=== PATIENT | female | born 2000 ===

== ENCOUNTER 2024-07-23 18:02 | Outpatient (REF) | payer OTHER, SELFPAY ==
[2024-07-23 18:20] LABS: MANUAL DIFF FLAG NO
[2024-07-23 18:33] LABS: Basophils Percent Auto 0.3 % (0-2); Eosinophils Absolute Auto 0.4 X10*3/uL (0.0-0.4); Eosinophils Percent Auto 4.1 % (0-4); Hematocrit 43.2 % (37.0-47.0); Hemoglobin 14.4 g/dl (12.0-16.0); Imm Gran Abs Auto 0.03 X10*3/uL (0.00-0.03); Imm Gran Pct Auto 0.3 % (0.0-0.4); Lymphocytes Absolute Auto 2.3 X10*3/uL (1.2-4.9); Lymphocytes Percent Auto 26.5 % (20-40); Mean Corpuscular HGB Conc 33.3 g/dl (31.0-35.0); Mean Corpuscular Hemoglobin 28.3 pg (27.0-33.0); Mean Platelet Volume 10.8 fL (9.4-12.3); Monocytes Absolute Auto 0.7 X10*3/uL (0.1-1.2); Monocytes Percent Auto 7.9 % (2-11); Neutrophils Absolute Auto 5.3 x10*3/uL (2.0-8.3); Neutrophils Percent Auto 60.9 % (45-73); Platelet Count 397 X10*3/uL (160-400); Red Blood Count 5.08 X10*6/uL (4.20-5.50); Red Cell Distribution Width 20.4 % (11.0-16.0); White Blood Count 8.8 X10*3/uL (4.8-10.8)
[2024-07-23 19:02] LABS: Alanine Aminotransferase 41 U/L (0-31); Albumin Level 3.9 g/dL (3.5-5.0); Alkaline Phosphatase 40 U/L (39-117); Anion Gap 12 (12-20); Aspartate Amino Transferase 33 U/L (5-31); Bilirubin Total 0.3 mg/dL (0.0-1.0); Blood Urea Nitrogen 6 mg/dL (9-16); Calcium 10.5 mg/dL (8.4-10.2); Carbon Dioxide 20 mmol/L (22-29); Chloride 111 mmol/L (96-108); Estimated Glomerular Filt Rate > 60; Glucose Random 107 mg/dL (60-115); Magnesium 2.3 mg/dL (1.6-2.6); Phosphorus 2.6 mg/dL (2.7-4.5); Potassium 4.7 mmol/L (3.3-5.1); Sodium 138 mmol/L (135-145); Total Protein 7.4 g/dL (6.5-8.0); Triglycerides 183 mg/dL (<150)
--- OUTSIDE RECORDS SUMMARY | 2024-07-23 19:24 | XMS_ITS | Clinical Summary ---
Author Organization [facility] ity Address [address] [place] [address] Care Team Providers Care Electronic Intelligence Officer Name Role Phone Luci Parra Primary Care Provider [phone] Surgical History Surgery Date Site/Laterality Comments SHOULDER SURGERY N/A PROCEDURE: HISTORICAL SHOULDER SURGERY Social History Tobacco Use Types Packs/Day Years Used Date Smoking Tobacco: Never Smokeless Tobacco: Never Alcohol Use Standard Drinks/Week Comments Yes 0 (1 standard drink = 0.6 oz pur e alcohol) Comments Unknown Sex and Gender Information Value Date Recorded Sex Assigned at Not on file Legal Sex Female 8:38 PM EST Gender Identity Not on file Sexual Orientation Not on file Obstetrics History Last Filed Vital Signs Vital Sign Reading Time Taken Comments Blood Pressure 115/80 03/08/2024 7:15 AM EDT Sit ting L Arm Pulse 90 02/09/2023 10:12 AM EDT Temperature - - Respiratory Rate - - Oxygen Saturation - - Inhaled Oxygen Concentration - - Weight 55.8 kg (123 lb) 03/08/2024 7:15 AM EDT Height 160 cm (5' 3 ) 03/08/2024 7:15 AM EDT Body Mass Index 21.79 03/08/2024 7:15 AM EDT Plan of Treatment Health Maintenance Due Date Last Done Comments HPV Vaccines (1 - 3-dose series) 2013 DTaP,Tdap,and Td Vaccines (1 - Tdap) 2017 Hepatitis B Vaccines (1 of 3 - 19+ 3-dose series) 2017 Cervical Cancer Screening: P ap Smear 08/30/2019 Depression Screening 06/17/2023 HIV Screening 06/17/2023 Hepatitis C Screening 06/17/2023 Social Influencers of Health Screening 06/17/2023 COVID-19 Vaccine (1 - 2023-2 5 season) 2024 Influenza Vaccine (#1) 2024 HIB Vaccines Aged Out No longer eligi ble based on patient's age to complete this topic Hepatitis A Vaccines Aged Out No long er eligible based on patient's age to complete this topic IPV Vaccines Aged Out No longer eligi ble based on patient's age to complete this topic MMR Vaccines Aged Out No longer eligi ble based on patient's age to complete this topic Meningococcal ACWY Vaccine Aged Out N o longer eligible based on patient's age to complete this topic Meningococcal B Vacine Aged Out No lo nger eligible based on patient's age to complete this topic Pneumococcal Vaccine: Pediat rics (0 to 5 Years) and At-Risk Patients (6 to 64 Years) Aged Out No longer eligible b ased on patient's age to complete this topic RSV Immunization Patients Un sharonda 20 months Aged Out No longer eligible b ased on patient's age to complete this topic Varicella Vaccines Aged Out No longer eligible based on patient's age to complete this topic Care Teams Electronic Intelligence Officer Relationship Specialty Start Date End Date Luci Parra [address] [place], [place] [address]AGUSTÍN gonzalez [phone] PCP - General 02/09/23
--- OUTSIDE RECORDS SUMMARY | 2024-07-23 19:24 | XMS_ITS ---
Author Organization [facility], [facility] Address [address], [place] [id number] Care Team Providers Care Craft Artist Name Role Phone ARI SHOOK Primary Care Provider Luci Parra [phone] REASON FOR VISIT FU SOCIAL HISTORY Sex Assigned At : Social History Observation Description Sex Assigned At Female Encounters Encounter Location Date Provider Diagnosis [facility], [address] [id number] 06/28/2024 Luci Parra PLAN OF TREATMENT No Information Progress Notes * CIPRIANO RASCONOB:2000 (23 yo F)Acc No.[id number]:06/28/2024 Progress Notes Patient:??DESIRAE RASCON Provider:??Luci Parra DNP :2000?Age:23 Y?Sex:Fe male Date:06/28/2024 Phone: Address: [address] [id number] Pcp:ARI SHOOK Subjective: * Chief Complaints: * ?1. FU. * Medical History:?? Objective: Assessment: Plan: * Treatment: * Billing Information: * Visit Code:?? * Procedure Codes:?? * Sign off status: Pending * Provider:??Luci Parra DNP Date:??10/2024
--- OUTSIDE RECORDS SUMMARY | 2024-07-23 19:24 | XMS_ITS | Data Portability ---
Author Organization [place] - [facility] Address [address] [facility] [address] Assessment No assessment recorded. Plan of Treatment Reminders Order Date Submit Date Provider Last Modified By Organization Details Last Modified Time Details Appointments None recorded. Lab erythrocyte sedimentati on rate by westergren method 2023 024 [employer] [facility], [address], [place], [place], [address], 4 17:30:49 C-reactive protein, quantitativ e, serum or plasma 2023 024 [email or web address] [facility], [address], [place], [place], [address], 4 09:45:29 CMP, serum or plasma 2023 024 [employer] [facility], [address], [place], [place], [address], 4 17:30:49 CBC w/ auto diff 2023 024 [employer] [facility], [address], [place], [place], [address], 4 17:30:49 JALEN (antinuclea r antibodies) screen, ifa, serum 2023 024 [employer] [facility], [address], [place], [place], [address], 4 17:30:49 HLA-B27 related Ag 2023 024 [employer] [facility], [address], [place], [place], [address], 4 17:30:49 rf (rheumatoid factor), serum 2023 024 [email or web address] [facility], [address], [place], [place], [address], 4 09:45:29 ccp (cyclic citrullinat ed peptide) igg, serum 2023 024 AROLDO [facility], [address], [place], [place], [address], 4 17:30:49 Referral None recorded. Procedures None recorded. Surgeries None recorded. Imaging XR, pelvis, 3 or more view - Hx HLA B27 arthritisax ial stiffness and pain 2023 024 [facility] (Central Scheduling), [address] [facility] [place], [address], 4 18:24:51 XR, cervical spine, 2 or 3 view - Hx HLA B27 arthritisax ial stiffness and pain 2023 024 [facility] (Central Scheduling), [address] , [place], [place], [address], 4 18:23:20 XR, lumbosacral spine, 2 or 3 view 2023 024 [facility] (Central Scheduling), [address] , [place], [place], [address], 4 18:23:50 Medication Orders None recorded. Patient TargetsNo targets recorded. Patient InstructionsNo instructions recorded. Reason for Referral None Reported. Results Created Date Observation Date Name Description Value Unit Range Abnormal Flag Note LastModifiedBy Organization Detail LastModifiedTime 10/28/19 24 10/28/2023 XR, cervi vandana spine , 2 or 3 view [facility] [address] [place] [address] XRay Report Signed Patien t: Sravan Mendez MR#: [id number] : 2000 Acct:H [id number] Age/Se x: 23 / F ADM Date: Loc: HE.RAD Attend ing Dr: Eli parra MD Orderi ng Physic gagan: Eli parra MD Date of Servic e: Proced ure(s) : XR cervic al spine 3V Access ion Number (s): [id number] H cc: NO,PCC EXAM: XR cervic al spine 3V CLINIC AL INDICA TION: HX HLA B27 ARTHRI TIS, STIFFN ESS AND PAIN COMPAR UZIEL: None FINDIN GS: Verteb ral body height s mainta ined. Focal revers al of usual cervic al lordos is center ed at C4-C5. Interv ertebr al disc spaces preser tiff with except ion of C7-T1. No sublux ation. Normal atlant odenta l interv al. Odonto id proces s appear s intact . No cervic al facet arthro audelia. Prever tebral soft tissue s appear normal . Electr onical ly Signed in [place] cribe By ROGELIO Barajas MD, MD 081 XR/XR cervic al spine 3V IMPRES HIMA: Straig htenin g/reve rsal of usual cervic al lordos is, may be due to muscle spasm. No cervic al arthro audelia or syndes mophyt es identi fied at this time. Dictat ed By: Rogelio barajas MD Signed By: 1818 DD/DT: 1245 TD/TT: 1250 Transc riptio nist: [email or web address] [facility] [address] [place], [place] [address], [address], 12/02/2023 09:48:27 10/28/19 24 10/28/2023 XR, cervi vandana spine , 2 or 3 view No observ ation record ed. [address] [place], [address], 12/02/2023 09:48:27 10/28/19 24 10/28/2023 XR, lumbo sacra l spine , 2 or 3 view [facility] [address] [facility] [place] [address] XRay Report Signed Yola t: Sravan Mendez MR#: [id number] : 2000 Acct:H [id number] Age/Se x: 23 / F ADM Date: Loc: HE.RAD Attend ing Dr: Eli parra MD Orderi ng Physic gagan: Eli parra MD Date of Servic e: Proced ure(s) : XR lumbar spine 2-3V Access ion Number (s): [id number] H cc: NO,PCC EXAM: XR lumbar spine 2-3V CLINIC AL INDICA TION: HX HLA B27 ARTHRI TIS, STIFFN ESS AND PAIN COMPAR UZIEL: None FINDIN GS: Verteb ral body height s mainta ined. Interv ertebr al disc spaces relati vely well mainta ined. Preser vation of usual cervic al lordos is. No suspic ious osseou s lesion . No syndes mophyt es. Sacroi liac joints appear intact . Soft tissue s appear normal . Electr onical ly Signed in [place] cribe By ROGELIO Barajas MD, MD 082 XR/XR lumbar spine 2-3V IMPRES HIMA: Normal lumbar spine radiog raph. Dictat ed By: Rogelio barajas MD Signed By: 1818 DD/DT: 1245 TD/TT: 1250 Transc riptio nist: [email or web address] [facility] [address] [place] [address] [place], [address], 12/02/2023 09:48:28 10/28/19 24 10/28/2023 XR, lumbo sacra l spine , 2 or 3 view No observ ation record ed. [address] [place], [address], 12/02/2023 09:48:29 10/28/19 24 10/28/2023 XR, pelvi s, 3 or more view [facility] [address] [facility] [place] [address] XRay Report Signed Yola t: Sravan Mendez MR#: [id number] : 2000 Acct:H [id number] Age/Se x: 23 / F ADM Date: Loc: HE.RAD Attend ing Dr: Eli parra MD Orderi ng Physic gagan: Eli parra MD Date of Servic e: Proced ure(s) : XR pelvis min 3V Access ion Number (s): [id number] H cc: NO,PCC EXAM: XR pelvis min 3V CLINIC AL INDICA TION: HX HLA B27 ARTHRI TIS, STIFFN ESS AND PAIN COMPAR UZIEL: None FINDIN GS: Pelvis intact . No suspic ious osseou s lesion . Normal bone minera lizati on. Sacroi liac joints appear intact . No apprec iable erosio ns. No osseou s fusion . Hip joint spaces well mainta ined. Femora l head articu lar surfac es well mainta ined. Soft tissue s appear normal . Electr onical ly Signed in [place] c[place] By ROGELIO Barajas MD, MD 080 XR/XR pelvis min 3V IMPRES HIMA: Normal pelvic radiog raph. No sacroi liitis . Dictat ed By: Rogelio barajas MD Signed By: 1819 DD/DT: 1245 TD/TT: 1250 Transc riptio nist: [email or web address] [facility] [address] [facility], [place], [address], 12/02/2023 09:48:29 10/28/19 24 10/28/2023 XR, pelvi s, 3 or more view No observ ation record ed. [address] [place], [address], 12/02/2023 09:48:30 Result Notes None recorded. Procedures Surgical History Date Name Laterality Status Provider Name and Address Organization Details Recorded Time established patient counseling (25-39 minutes) completed Eli Fall MD [address] [place] [address], [address], [facility] 12/06/2023 13:57:12 Imaging Results Imaging Date Name Status LastModified by Organiz ation Details LastModified Time 10/28/2023 XR, cervical spine, 2 or 3 view completed [address], [address], 12/02/2023 09:48:27 10/28/2023 XR, cervical spine, 2 or 3 view completed [address], [address], 12/02/2023 09:48:27 10/28/2023 XR, lumbosacral spine, 2 or 3 view completed [address], [address], 12/02/2023 09:48:28 10/28/2023 XR, lumbosacral spine, 2 or 3 view completed [address], [address], 12/02/2023 09:48:29 10/28/2023 XR, pelvis, 3 or more view completed [address], [address], 12/02/2023 09:48:29 10/28/2023 XR, pelvis, 3 or more view completed [address], [address], 12/02/2023 09:48:30 Procedure Notes None recorded. Medical Equipment None Reported. Allergies Allergen ID Allergen Name Allergen Category Reaction Reaction Severity Criticality Documentation Date Start Date Code Code System Note Provider Name and Address Organization Details Recorded Time 654981 amoxicill in medicatio n hives Not available Not available 10/28/2023 723 RxNorm [place] [facility] 4 11:02:36 378352 oxcarbaze pine medicatio n hives rash Not available Not available Not available 10/28/2023 33109 RxNorm Adiel frederick [facility] 4 11:03:50 997521 Venofer medicatio n swelling Not available Not available 10/28/2023 80294 9 RxNorm swell ing all over and unabl e walk Adiel frederick [facility] 4 11:04:55 Medications Name Sig Start Date Stop Date Status Note LastModified by Organization Details LastModified Time Apri 0.15 mg-0.03 mg tablet TAKE 1 TABLET BY MOUTH EVERY DAY 10/27 completed Not Available Not Available Not Available prednison e 20 mg tablet TAKE 2 TABLETS BY MOUTH EVERY DAY 10/27 completed Not Available Not Available Not Available gabapenti n 400 mg capsule TAKE 1 CAPSULE BY MOUTH THREE TIMES A DAY active Not Available Not Available No t Available clonazepa m 1 mg tablet TAKE 1 TABLET BY MOUTH TWICE A DAY FOR 4 DAYS 10/27 completed Not Available Not Available Not Available methylphe nidate ER 54 mg tablet,ex tended release 24 hr TAKE 1 TABLET BY MOUTH EVERY DAY IN THE MORNING active Not Available Not Available No t Available lithium carbonate 150 mg capsule TAKE 2 CAPSULES BY MOUTH EVERY DAY AT BEDTIME 10/27 completed Not Available Not Available Not Available lithium carbonate 300 mg capsule TAKE 1 CAPSULE BY MOUTH AT BEDTIME FOR 7 DAYS 10/27 completed Not Available Not Available Not Available Phospha Neutral 250 mg tablet TAKE 1 TABLET BY MOUTH 3 TIMES DAILY FOR 2 DAYS active pt stated no longer taking - had allergic reaction 11/30/23 LB Not Available Not Available Not Available fluvoxami ne 50 mg tablet TAKE 1 TABLET BY MOUTH TWICE A DAY FOR 30 DAYS active Not Available Not Available No t Available lorazepam 1 mg tablet TAKE 1 TABLET BY MOUTH THREE TIMES A DAY NEEDED. *INS ENDED 10/20, NEED NEW active Not Available Not Available No t Available ondansetr on 4 mg disintegr ating tablet TAKE 1 TABLET BY MOUTH EVERY 8 HOURS NEEDED FOR NAUSEA/V OMITING active Not Available Not Available No t Available methylphe nidate ER 36 mg tablet,ex tended release 24 hr TAKE 1 TABLET BY MOUTH EVERY DAY IN THE MORNING 10/27 completed Not Available Not Available Not Available metoclopr amide 10 mg tablet TAKE 1 TABLET BY MOUTH BEFORE MEALS TWICE A DAY 30 DAYS active Not Available Not Available No t Available methylphe nidate ER 27 mg tablet,ex tended release 24 hr TAKE 1 TABLET BY MOUTH EVERY DAY IN THE MORNING 10/27 completed Not Available Not Available Not Available divalproe x ER 250 mg tablet,ex tended release 24 hr TAKE 2 TABLETS BY MOUTH EVERY DAY 10/27 completed Not Available Not Available Not Available bupropion HCl XL 300 mg 24 hr tablet, extended release TAKE 1 TABLET BY MOUTH EVERY DAY active Not Available Not Available No t Available bupropion HCl XL 150 mg 24 hr tablet, extended release TAKE 1 TABLET BY MOUTH EVERY DAY IN THE MORNING 10/27 completed Not Available Not Available Not Available .5 (28) 1.5 mg-30 mcg (21)/75 mg (7) tablet TAKE 1 TABLET BY MOUTH EVERY DAY active Not Available Not Available No t Available eszopiclo ne 2 mg tablet TAKE 1 TABLET IMMEDIAT FAUZIA BEFORE BEDTIME ONCE A DAY FOR 30 DAYS 10/27 completed Not Available Not Available Not Available ramelteon 8 mg tablet TAKE 1 TABLET BY MOUTH AT BEDTIME NEEDED active pt stated no longer taking 11/30/23 LB Not Available Not Available Not Available lurasidon e 40 mg tablet TAKE 1 TABLET BY MOUTH EVERYDAY AT BEDTIME 10/27 completed Not Available Not Available Not Available lurasidon e 80 mg tablet TAKE 1 TABLET BY MOUTH EVERYDAY AT BEDTIME 10/27 completed Not Available Not Available Not Available lurasidon e 20 mg tablet TAKE 1 TABLET BY MOUTH EVERYDAY AT BEDTIME 10/27 completed Not Available Not Available Not Available lurasidon e 60 mg tablet TAKE 1 TABLET BY MOUTH EVERYDAY AT BEDTIME 10/27 completed Not Available Not Available Not Available Caplyta 42 mg capsule TAKE 1 CAPSULE BY MOUTH EVERY DAY 10/27 completed Not Available Not Available Not Available Vitals Date Recorded Body weight Heart rate Systolic blood pressure Diastolic blood pressure Provider Name and Address Organization Details Last Updated DateTime 10/28/2023 29304.87 g 93 /min 125 mm[Hg] 90 mm[Hg] Maren Yang [facility] 10/28/2023 11:06:48 Date Recorded Body weight Heart rate Systolic blood pressure Diastolic blood pressure Provider Name and Address Organization Details Last Updated DateTime 11/30/2023 85164.64 g 67 /min 121 mm[Hg] 84 mm[Hg] Demi Solorzano [place] [facility] 11/30/2023 11:29:15 Social History None recorded. Functional Status None recorded. Mental Status None recorded. Family History Nothing Reported. Medical History No medical history recorded. Gynecological HistoryNo gynecological history recorded. 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 Plan:Obtai n baseline serologies , inflammato ry markers and XraysTry temporary increase in Aleve -2 tabs BIDF/u 1 month Recurrent dislocation of shoulder region 76996592 M24.419 left shoulder x 3, requiring surgical repair. Experience s subsequent dislocatio nleft knee x 1. Has had surgery Plan:We did not have time to address in detail today- can review more at our follow up.Would recommend ortho referral- see if she can obtain any outside ortho notes ahead of timeConsid er genetics referral for a hypermobil e condition. [id number] MD Janeen Galeana Rheumatol [facility] [address] [place] [address] [place] [address] 11/30/2023 11:20:15 11/30/2023 12:42:40 Undifferentiated inflammatory arthritis 516238988 M13.80 23 year old female with a history of HLA B27 arthritis, diagnosed age [age].She reports axial stiffness and pain- mostly Cspine, hips and low back.She has no synovitis on examinatio n.She has no associated ocular, GI, dermatolog ic symptoms.X -rays of her pelvis, lumbar and cervical spines are unremarkab le for erosions, syndesmoph ytes or fusion. Hip joint spaces are normal.Her recent ESR and JALEN and CCP antibodies are negative. CRP and RF were ordered but results not received at time of this visit. HLA? B 27 is again positive. Kesha reports being diagnosed with a HLA- B27 arthritis at the age of 11 but was never treated with DMARDS - and yet her x-rays and ESR look good. At this time, I do not see evidence for an inflammato ry spondyloar thritis. Her B27 status may have no clinical significan ce. Plan:I reviewed my impression with Kesha. We reviewed her laboratory results and x-rays. I have offered reassuranc e. I will see if I can obtain the results of her RF and CRP. I will reach out to her when I obtain them, but I suspect they will be reassuring as well. She should continue with her stretches. She will refrain from NSAIDs for now (mild creatinine elevation) .We agreed to follow-up in 6 months, to re- evaluate. If she has had no change in symptoms at that time, I feel we can leave follow up as needed. Kesha agrees with the plan. ADDENDUM:l abs received:R F <10, CRP <3.0. Hypermobil ity of joint 079025459 R29.898 Kesha has had 3 failed left shoulder surgeries and history of repeated subluxatio ns to the left shoulder and left knee. We have discussed a referral to orthopedic s and genetics clinic.She is not inclined to pursue the orthopedic route as she expects further surgery will be recommende d and she has yet to understand why her surgeries fail.She would be interested in a genetics evaluation . I have given her a couple of genetics locations to pursue. If she needs a referral, I would be happy to place this for her. Health Concerns Section Related Observation LastModified by Organization Detai ls LastModified Time None Recorded Concern Status LastModified by Organization Details LastModified Time None Recorded Advance Directives Directive None Recorded Payers Encounter Date Sequence Insurance Name Policy Number Policy Palomo Covered Member ID Palomo Member ID Guarantor Name 10/28/2023 1 [facility] [id number] Kesha Mendez [id number] Kesha Mendez 11/30/2023 1 [employer] [facility] [id number] Kesha Mendez Notes Date Note Type Note Provider Name and Address Organization Details Recorded Time 10/28/2023 text/html Kesha is a 23-year-old female who presents for consultation from Ms. Luci Parra NP for polyarthralgia. She has a history of anemia, anxiety, ADHD, insomnia, concussion seventh grade (skull fracture), left shoulder surgery x 3, left knee surgery She states she has been seeing rheumatology since 5th grade:[facility], [facility].She was diagnosed with HLA-B27+ JENN- at the [facility]- tried Voltaren, nortriptyline, baclofen and alot of NSAIDsSuggested pain clinic-Also changed her diet- gluten free - helping- joints better. Has been gluten free for about 10 years. States she gets extremely sick if she eats gluten.Tells me she was told there was no point in testing as she is gluten free nowShe doesn't recall aishwarya on meds such as HCQ, MTX, SSZ, Enbrel , Humira States she had seen a analytics developer in - [facility], [place] -2017. Saw MD for maybe 4 visits- was given Baclofen. She states [facility]. Kesha states she lost contact with rheum while in college. Here to establish care. States she has had 3 shoulder surgeries while in college- 3 capsular shifts in her shoulder - she keeps tearing her labrum despite anchors. She can still dislocate the shoulderStates her mom is questioning something autoimmuneShe feels she hits some hypermobility marker,s but not all EDS markers left shoulder dislocates still on its ownShe reports left knee dislocation- s/p surgerystates she grew up dancing- very active 2 years now- worsening over past year:she awakens middle of night and cannot move head- sometime lasting 30-40 minutesfeels paralyzedsame experience in the [facility] stiffness: neck, low back, hips, knees- hours- better with moving aroundneck more of an issue over past two yearsstiffness everyday but sometimes only lasting 15-20 minutesfeels swelling in hip socketsback stiffens if sitting knees ,back and hips when younger- all started with her knees She sees a massage therapist and chiropractor- stopped chiroMarija takes Aleve- 1 tab a day as needed- tries not to take too much - doesn't notice a huge differenceHas tried topicals- no relief She mentions creatinine level elevation- noticed back in February 2023She mentions having an eating disorder- June 2023Her creatinine has worsened since she was recently at [facility] with heart palpitations, weak, LH- diagnosed with JAYSON, low phos, malnutrition, weight loss ROS:no inflammatory eye sx'sno psoriasisno PF/ AT4 years ago- reports intermittent pain with inspiration- can last 4-5 hours with radiating pain down arm- feels she can't breath deeply. Saw cardiology and no cardiac issueNo abd pain/ bloody diarrheano oral/ nasal soresHives -seasonally. No photosensitive rashesno unexplained feversFamhx: PGM RA. 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 She is a non smoker, social Etoh. Bachelor's and Master's in mental health- [employer] for both. 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 Kesha states that she did not increase her Aleve, as we discussed. This was out of concern for her kidneys. She is to see her residential coordinator tomorrow. She also informs me that in the next week or 2 she expects she will be admitted to a hospital for feeding tube placement. She tells me this could be [place] the [place].There have been no other interim issues since our visit 1 month prior. She denies any changes in her back, neck or hip symptoms.She stretches these areas when needed She reports a history of swelling and erythema to her knees and ankles - when she is in a hot shower or if the ambient temperature is very hot. She tells me her other doctors think possibly related to M[place]. Otherwise, she denies painfully swollen, stiff joints. As for her left shoulder and knee: She has failed 3 shoulder surgeries by 3 different [facility]- [facility]. She tells me she has torn through the anchors, repeatedly. Nobody has explained why.Her last surgery was in [facility]- 2019Her left knee has healed since surgery but she states it gets stuck and maybe subluxesShe has been through alot of PT with strengthening and stretching for both areas. Labs/ Studies:10/28 2023: Creatinine 1.17, GFR 66, AST 15, ALT 13, calcium 10.7, alk phos 28. WBC 5.3, Hgb 15.4, HCT 44.9, PLT 308K. ESR 2, JALEN IFA negative, CCP <16 (neg). HLA-B27 positive. 10/28/2023: Xrays:FINDINGS: Pelvis:Pelvis intact. No suspicious osseous lesion. Normal bone mineralization. Sacroiliac joints appearintact. No appreciable erosions. No osseous fusion.Hip joint spaces well maintained. Femoral head articular surfaces well maintained. Soft tissuesappear normal. FINDINGS: Lumbar spine:Vertebral body heights maintained. Intervertebral disc spaces relatively well maintained.Preservatio n of usual cervical lordosis. No suspiciousosseous lesion. No syndesmophytes. Sacroiliac joints appear intact. Soft tissues appear normal. FINDINGS: Cervical spine:Vertebral body heights maintained. Focal reversal of usual cervical lordosis centered at C4-C5.Intervertebral disc spaces preserved with exception ofC7-T1. No subluxation. Normal atlantodental interval. Odontoid process appears intact. No cervicalfacet arthropathy. Prevertebral soft tissues appearnormal. * I have reviewed all the x-rays and I concur with the reports. Eli Fall MD [address] [place] [address], [place], [address], [facility] 12/06/2023 13:57:38 OBGyn Episode No OBEpisode recorded.
--- OUTSIDE RECORDS SUMMARY | 2024-07-23 19:25 | XMS_ITS | Encounter Summary ---
Author Organization [facility] Address [address] [place] [id number] Care Team Providers Care Conference Assistant Name Role Phone Austin Goff MD Unavailable Luci Parra APRN Primary Care Provider [phone] Anthony Maldonado PA-C Unavailable [phone] Reason for Visit * Auth/Cert Specialty Diagnoses / Procedures Referred By Contac t Referred To Contact Diagnoses Nausea and vomiting, unspecified vomiting type Ongoing NV and currently has DHT Procedures IA INSERT CECOSTOMY/OTHER COLONIC TUBE PERCUTANEOUS IR Insert G/J Tube Incl Imaging Referral ID Status Reason Start Date Expiration Date Visits Re quested Visits Authorized [id number] 1 1 Encounter Details Date Type Department Care Team (Late st Contact Info) Description 07/03/2024 11:13 AM EST Anesthesia Event [facility] Radiology [address] [place] [id number] Joe Arce MD [address] [facility] [address] [place] [address] Anesthesia Record Procedure Summary Procedure Name Responsible Anesthesiologist Anesthesia Start Time Anesthesia Stop Time IR Insert G/J Tube Incl Imaging Joe Sutherland MD 07/03/24 1113 07/03/24 1230 Events Date Time Event Comment 07/03/2024 1006 1025 AN Equip Check 1113 An Start 1113 An Start Data 1122 An Induction 1126 An Intubation 1132 Anesthesia Ready 1217 AN Emergence 1221 An Extubation 1223 AN Stop Data 1224 AN Pt Transferred 1224 AM Pt Transferred 1230 Handoff to Receiving I compl eted my handoff to the receiving clinician during which we: 1. Identified the patient 2. Identified the responsible provider 3. Reviewed pertinent medical history 4. Discussed the surgical or procedural course 5. Reviewed intraoperative management and issues during anesthesia 6. Set expectations for the post-procedure period 7. Allowed opportunity for questions and acknowledgement of understanding. 1230 An Stop Meds Name Total fentaNYL 50 mcg/mL injection 100 mcg propofol 10 mg/mL BOLUS 180 mg rocuronium 10 mg/mL injection 70 mg lidocaine 2% (PF) injection (vial) 3 mL dexamethasone 4 mg/mL injection 4 mg ondansetron 2 mg/mL injection 4 mg sugammadex 200 mg/2 mL injection 200 mg ceFAZolin 1 g - INTRA-OP 2 g haloperidol 5 mg/mL injection 2.5 mg LR 300 mL * Agents Name O2 N2O Air Sevoflurane * Blood No blood administrations on file. Lines, Drains, and Airways Type Details Placement Removal NG/OG 05/05/24 (from OSH); 1106; nasogastric; left nostril; feeding administration, medication administration 05/05/24 1106 by Dayana Lama RN PICC Line - Double Lumen (Adult) 05/26/24; 1544; brachial, left, basilic vein (medial side of arm), left; pressure injectable catheter, other (see comments) ([id number]); 4 Fr, length (specify) (39/1); Purple; Red; modified seldinger technique; 0; distraction, intradermal injection (3 ml of lido); 1 05/26/24 1544 by Bety Ellington RN Enterostomy Tube (Adult) 07/03/24; 1213; percutaneous endoscopic gastrostomy-jejunostomy; LUQ; feeding; New G-J tube 07/03/24 1213 by Ashlie Belle RN Airway-Oral/CASINO ACCOUNTANT 07/03/24; 1137 (madhu smith via procedure documentation); endotracheal tube; 07/03/24; 1221 07/03/24 1137 by Joe Sutherland MD 07/03/24 1221 by Joe Sutherland MD documented in this encounter Social History Tobacco Use Types Packs/Day Years Used Date Smoking Tobacco: Never Smokeless Tobacco: Never Alcohol Use Standard Drinks/Week Comments Not Currently 0 (1 standard drink = 0.6 oz pur e alcohol) [facility] Utilities Answer Date Recorded In the past 12 months has th e electric, gas, oil, or water [employer] threatened to shut off services in your home? No 05/27/2024 AUDIT-C Answer Date Recorded Q1: How often do you have a drink containing alcohol? Never 05/24/2024 Q2: How many drinks containi ng alcohol do you have on a typical day when you are drinking? Patient does not drink Q3: How often do you have si x or more drinks on one occasion? Never 05/24/2024 Overall Financial Resource Strain (CARDIA) Answe r Date Recorded How hard is it for you to pa y for the very basics like food, housing, medical care, and heating? Not very hard 05/27/2024 Hunger Vital Sign Answer Date Recorded Within the past 12 months, y ou worried that your food would run out before you got the money to buy more. Never true 05/27/19 25 Within the past 12 months, t he food you bought just didn't last and you didn't have money to get more. Never true 05/27/2024 PRAPARE - Transportation Answer Date Re corded In the past 12 months, has l ack of transportation kept you from medical appointments or from getting medications? No 09/2024 In the past 12 months, has l ack of transportation kept you from meetings, work, or from getting things needed for daily living? No 05/27/2024 Housing Stability Vital Sign Answer David e Recorded In the last 12 months, was t here a time when you were not able to pay the mortgage or rent on time? No 05/27/2024 In the past 12 months, how m any times have you moved where you were living? 1 05/27/2024 At any time in the past 12 m [facility], were you homeless or living in a fci (including now)? No 05/27/2024 Sex and Gender Information Value Date Recorded Sex Assigned at Female 03/15/2024 6:18 PM EDT Gender Identity Female 03/15/2024 6:18 PM EDT Sexual Orientation Choose not to disclose 2023 6:18 PM EDT documented as of this encounter Last Filed Vital Signs Vital Sign Reading Time Taken Comments Blood Pressure - - Pulse - - Temperature - - Respiratory Rate 2 07/03/2024 12:23 PM EST Oxygen Saturation 96% 07/03/2024 12:23 PM EST Inhaled Oxygen Concentration - - Weight - - Height - - Body Mass Index - - documented in this encounter OR Notes * Anesthesia Postprocedure Evaluation - Joe Sutherland MD - 07/04/2024 8:05 AM EST Department of Anesthesiology Post-Anesthesia Evaluation Patient Name: Kesha Mendez : 2000 Admission Date: 07/03/2024 Attending Provider: No att. providers found Date of Service: 07/04/2024 Procedure Summary Date: 07/03/24 Room / Location: IR 2 / IR Anesthesia Start: 1113 Anesthesia Stop: 1230 Procedure: IR Insert G/J Tube Incl Imaging Diagnosis: Nausea and vomiting, unspecified vomiting type (Ongoing NV and currently has DHT) Providers: Anisha Almodovar MD Responsible Provider: Joe Sutherland MD Anesthesia Type: general ASA Status: 2 Anesthesia Type: general No notable events documented. Last vitals Vitals Value Taken Time BP 124/82 07/03/24 1300 Temp Pulse 100 07/03/24 1300 Resp 18 07/03/24 1300 SpO2 99 % 07/03/24 1300 Evaluation Vital signs are in the patient's normal range: Yes Respiratory function stable; airway patent: Yes Cardiovascular function and hydration status are stable: Yes Mental status recovered; patient participates in evaluation: Yes Pain control satisfactory: Yes Nausea and vomiting control is satisfactory: Yes This is an OB patient: No Quality Metrics -Obstructive sleep apnea risk education given perioperatively -Two or more strategies used to mitigate risk of obstructive sleep apnea -Multimodal analgesia pain management approach -Opioid medication given during intra or post-procedure care Joe Sutherland MD 07/04/2024 8:05 AM * Anesthesia Preprocedure Evaluation - Joe Sutherland MD - 07/03/2024 11:40 AM EST Department of Anesthesiology Pre-Procedure Evaluation Patient Name: Kesha Mendez : 2000 Admission Date: 07/03/2024 Attending Provider: Sameer Maxwell MD Date of Service: 07/03/2024 Scheduled Procedure: IR Insert G/J Tube Incl Imaging, N/A Pre-operative Diagnosis: Ongoing NV and currently has DHT Relevant Problems No relevant active problems Allergies Allergen Reactions Amoxicillin Hives Fioricet [Egopdijveb-Bnnb-Ozttituu] Hives and Shortness Of Breath Compazine [Prochlorperazine] Dyskinesia/Dystonia Fish-Derived Products Hives Gluten Hives and GI Intolerance/Nausea/Vomiting Gluten Meal Hives and GI Intolerance/Nausea/Vomiting Iron Sucrose Swelling Hands ankles and knees swollen Other Reaction(s): allergic reaction Midodrine Other (See Comments) Left side face droop, muscle tightness in neck and lock jaw Oxcarbazepine Hives and Rash/Dermatitis Peanut-Containing Drug Products Hives and Itching Patient states they can tolerate (03/29/24). Phosphate Hives Patient states they can tolerate the IV when pre-dosed with Benadryl and Compazine (03/29/24). Phosphorus Hives Hives to both PhosNak and KPhos neutral. Patient states they can tolerate the IV when pre-dosed with Benadryl and Compazine (03/29/24). Reglan [Metoclopramide] Other (See Comments) tremors Seafood Hives No data recorded Patient summary reviewed. Nursing notes reviewed. ECG reviewed. Pre-procedure vital signs reviewed. NPO status verified. 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 She reports that she often develops significant palpitations in the uprightposition with associated dizziness/lightheadedness, dyspnea, and at times presyncope and kassandra syncope. She is seen by my cardiology colleague Austin Landry MD who appropriately advised her to start fludrocortisone 0.1 mg daily, increase fluid and salt intake aggressively, and a trial of midodrine. She is tolerating fludrocortisone and has been drinking approximately 80 ounces of water daily and using added salt to her diet. She did trial midodrine, however, she was unable to tolerate with reports of development of dystonia which is very rare adverse response to midodrine, however, given this response I would not retrial this agent. In the past she has trialed propranolol and clonidine both of which led to kassandra syncope. She recently was admitted to a facility in [place] ([facility]) for anorexia treatment including placement of NG-tube due to severe malnutrition. Review of admission notes reveals a significant psychiatric history including: anxiety, bipolar 1, OCD, ADHD, PTSD, >9 suicide attempts by overdose, selfharm by cutting. Physical Exam Airway Mallampati III TM distance >3 FB Neck ROM: full Dentition - no notable dental history normal rate regular rhythm Pulmonary - pulmonary exam normal Abdominal Past Medical History: Diagnosis Date Anemia Anxiety Bipolar disorder (HCC) Borderline personality disorder (HCC) Depression Psychiatric illness Self-injurious behavior Suicide attempt (HCC) Past Surgical History: Procedure Laterality Date [facility] SHOULDER ARTHROGRAPHY RS&I Left 03/04/2017 Procedure: FL Shoulder arthrogram-Left; Surgeon: Santhosh Hogan MD; Location: [facility]; Service: Interventional Radiology Family History Problem Relation Age of Onset Personality disorder Mother Alcohol abuse Mother Anxiety disorder Mother Alcohol abuse Father Anxiety disorder Sister Depression Sister Eating disorder Sister Alcohol abuse Maternal Aunt Alcohol abuse Maternal Grandfather Alcohol abuse Paternal Grandfather Alcohol abuse Paternal Grandmother Anxiety disorder Paternal Grandmother Social History Socioeconomic History Marital status: Single Spouse name: Not on file Number of children: Not on file Years of education: Not on file Highest education level: Not on file Occupational History Not on file Tobacco Use Smoking status: Never Smokeless tobacco: Never Vaping Use Vaping status: Never Used Substance and Sexual Activity Alcohol use: Not Currently Drug use: Yes Types: Marijuana Sexual activity: Not Currently Other Topics Concern Not on file Social History Narrative Not on file Social Determinants of Health Financial Resource Strain: Low Risk (05/27/2024) Overall Financial Resource Strain (CARDIA) Difficulty of Paying Living Expenses: Not very hard Food Insecurity: No Food Insecurity (05/27/2024) Hunger Vital Sign Worried About Running Out of Food in the Last Year: Never true Ran Out of Food in the Last Year: Never true Transportation Needs: No Transportation Needs (05/27/2024) PRAPARE - Transportation Lack of Transportation (Medical): No Lack of Transportation (Non-Medical): No Physical Activity: Not on file Stress: Not on file Social Connections: Unknown (12/14/2023) [facility] Social Connections Do your friends and family support you?: Not on file What agencies support you?: Not on file Housing Stability: Low Risk (05/27/2024) Housing Stability Vital Sign Unable to Pay for Housing in the Last Year: No Number of Times Moved in the Last Year: 1 Homeless in the Last Year: No Ht Readings from Last 1 Encounters: 06/13/24 1.6 m (5' 3 ) Wt Readings from Last 1 Encounters: 06/13/24 57.8 kg (127 lb 6.4 oz) There is no height or weight on file to calculate BMI. White Blood Cell Count Date Value Ref Range Status 06/18/2024 10.1 3.8 - 10.8 Thousand/uL Final Hemoglobin Date Value Ref Range Status 06/18/2024 12.6 11.7 - 15.5 g/dL Final Hematocrit Date Value Ref Range Status 06/18/2024 40.0 35.0 - 45.0 % Final Platelet Count Date Value Ref Range Status 06/18/2024 454 (H) 140 - 400 Thousand/uL Final Sodium Date Value Ref Range Status 06/02/2024 139 136 - 145 mmol/L Final Potassium Date Value Ref Range Status 06/02/2024 4.3 3.4 - 5.3 mmol/L Final CO2 Date Value Ref Range Status 06/02/2024 25 22 - 33 mmol/L Final Chloride Date Value Ref Range Status 06/02/2024 106 98 - 107 mmol/L Final POC Glucose Date Value Ref Range Status 06/04/2024 107 (H) 65 - 99 mg/dL Final Blood Urea Nitrogen (BUN) Date Value Ref Range Status 06/02/2024 11 8 - 21 mg/dL Final Creatinine Date Value Ref Range Status 06/02/2024 0.8 0.4 - 1.1 mg/dL Final Calcium Date Value Ref Range Status 06/02/2024 9.6 8.7 - 10.5 mg/dL Final INR Date Value Ref Range Status 06/18/2024 0.9 Final Comment: Reference Range 0.9-1.1 Moderate-intensity Warfarin Therapy 2.0-3.0 Higher-intensity Warfarin Therapy 3.0-4.0 11/29/2015 1.1 0.9 - 1.1 Partial Thromboplastin Time (PTT) Date Value Ref Range Status 11/29/2015 33.9 23.2 - 34.8 seconds No results found for: ABORH , TYPE , SCREEN Recent Results (from the past 8760 hour(s)) ECG 12 lead Collection Time: 05/22/24 5:55 PM Result Value Status Ventricular rate 88 Final Atrial rate 88 Final P-R interval 138 Final QRS duration 76 Final Q-T interval 338 Final QTC calculation (Bazett) 409 Final P axis 39 Final R axis 9 Final T axis 29 Final Narrative Normal sinus rhythm Normal ECG When compared with ECG of 02-May-2024 22:39, No significant change was found Confirmed by MD Pola, Oral ([id number]) on 05/22/2024 9:51:40 PM NPO Status: Date of Last Liquid Consumption: 07/02/24 Date of Last Solid Consumption: 07/02/24 Anesthesia Plan ASA Score: ASA 2 Consent: The anesthetic plan and associated risks was discussed with patient. Anesthesia Plan: general anesthesia The plan was discussed with the following care providers: attending. Post-Operative Pain Management: Post-operative opioids are intended. Routine Analgesia and Antiemetics : The preliminary anesthesia plan and risks were discussed. The final anesthesia plan will be determined by the responsible anesthesiologist. Attending Note I personally evaluated and examined the patient prior to the intra-operative phase of care. Joe Sutherland MD * Anesthesia Procedure Notes - Joe Sutherland MD - 07/03/2024 11:36 AM ESTAssociated Order(s): Airway Management Anesthesia Procedure Note - Elective intubation Patient Name: Kesha Mendez : 2000 Patient location: OR Procedure indications: airway protection Procedure diagnosis: Anesthesia Performed by: Anesthesiologist Joe Sutherland MD Chart Verification Airway: airway not difficult Preanesthetic Checklist monitors and equipment checked. Patient's pre-procedure mental status: awake The patient was sedated prior to procedure. Current level of sedation: general anesthesia Airway not difficult - Trial extubation NPO status: > 8 hours Procedure Details Intubation route: oral Intubation method: direct laryngoscopy Hernandez 2 Number of attempts: 1 Patient status for intubation: sedated and RSI Patient position: supine Preoxygenation: BiPAP/CPAP Quality of BVM: easy Tube size: 7.0 mm Tube: standard - cuffed Ventilation between attempts via BVM Cricoid pressure applied Cord visualization: Grade I Placement confirmation method: chest rise and ETCO2 monitor Breath sounds: equal bilaterally ETT to lip: 19 cm Dentition: same as baseline Complications: no complications documented in this encounter Plan of Treatment Upcoming Encounters Date Type Department Care Team (Late st Contact Info) Description 09/20/2024 3:00 PM EDT Office Visit [facility] [address] [place] [address] [place] [address] Ran Mckenzie MD [address] [place] [address] documented as of this encounter Procedures Procedure Name Priority Date/Time Associated Diagnosis Comments ANES INTUBATION Routine 07/03/2024 11:36 AM EST documented in this encounter Results * ANES INTUBATION (07/03/2024 11:36 AM EST) Narrative Joe Arce MD - 07/03/2024 11:36 AM EST Joe Sutherland MD ? 07/03/2024 11:47 AM Anesthesia Procedure Note - Elective intubation Patient Name: Kesha Mendez : 2000 Patient location: OR Procedure indications: airway protection Procedure diagnosis: Anesthesia Performed by: Anesthesiologist ? Joe Sutherland MD ? Chart Verification Airway: airway not difficult Preanesthetic Checklist monitors and equipment checked. Patient's pre-procedure mental status: awake The patient was sedated prior to procedure. Current level of sedation: general anesthesia Airway not difficult - Trial extubation NPO status: > 8 hours Procedure Details Intubation route: oral Intubation method: direct laryngoscopy ??Hernandez 2 Number of attempts: 1 Patient status for intubation: sedated and RSI Patient position: supine Preoxygenation: BiPAP/CPAP Quality of BVM: easy Tube size: 7.0 mm Tube: standard ??- cuffed Ventilation between attempts via BVM Cricoid pressure applied Cord visualization: Grade I Placement confirmation method: chest rise and ETCO2 monitor Breath sounds: equal bilaterally ETT to lip: 19 cm Dentition: same as baseline Complications: no complications Joe Sutherland MD IA ANESTHE SIENNA documented in this encounter Visit Diagnoses Not on filedocumented in this encounter Administered Medications Inactive Administered Medications - up to 1 most recent administrations Medication Order MAR Action Action Date Dose Rate Site lactated ringers (LR) infusion Intravenous, Continuous PRN, Starting on Tue07/03/24 at 1113, Anesthesia Intra-op New Bag 07/03/2024 11:13 AM EST ceFAZolin (ANCEF) injection Intravenous, As needed, Starting on Tue07/03/24 at 1133, Anesthesia Intra-op Given 07/03/2024 11:33 AM EST 2 g dexAMETHasone (DECADRON) 4 mg/mL injection Intravenous, As needed, Starting on Tue07/03/24 at 1134, Anesthesia Intra-op Given 07/03/2024 11:34 AM EST 4 mg fentaNYL 100 MCG/2ML injection Intravenous, As needed, Starting on Tue07/03/24 at 1122, Anesthesia Intra-op Given 07/03/2024 11:22 AM EST 100 mcg haloperidol lactate (HALDOL) 5 mg/mL injection Intravenous, As needed, Starting on Tue07/03/24 at 1135, Anesthesia Intra-op Given 07/03/2024 11:35 AM EST 2.5 mg lidocaine preservative free (XYLOCAINE-MPF) 2 % injection Intravenous, As needed, Starting on Tue07/03/24 at 1122, Anesthesia Intra-op Given 07/03/2024 11:22 AM EST 3 mL ondansetron (ZOFRAN) injection Intravenous, As needed, Starting on Tue07/03/24 at 1136, Anesthesia Intra-op Given 07/03/2024 11:36 AM EST 4 mg propofol (diPRIvan) injection Intravenous, As needed, Starting on Tue07/03/24 at 1122, Anesthesia Intra-op Given 07/03/2024 11:22 AM EST 180 mg rocuronium (ZEMURON) 50 mg/5mL injection Intravenous, As needed, Starting on Tue07/03/24 at 1122, Anesthesia Intra-op Given 07/03/2024 11:22 AM EST 70 mg sugammadex (BRIDION) injection Intravenous, As needed, Starting on Tue07/03/24 at 1217, Anesthesia Intra-op Given 07/03/2024 12:17 PM EST 200 mg documented in this encounter Care Teams Conference Assistant Relationship Specialty Start Date End Date Luci Parra APRN [address] [place] [id number] PCP - General 03/28/24 Austin Goff MD [address] [place] [id number] Primary Rolloff Truck Driver Cardiovascular Disease 03/27/24 Anthony Maldonado PA-C [address] [place] [id number] Advanced Practitioner Cardiac Electrophysiology 06/08/24 documented as of this encounter
--- OUTSIDE RECORDS SUMMARY | 2024-07-23 19:25 | XMS_ITS | Clinical Summary ---
Author Organization [facility] Address [address] [facility] [address] [place] [address] Phone Care Team Providers Care Supervisor Compounding And Finishing Name Role Phone Luci Parra Primary Care Provider [phone] Allergies Active Allergy Reactions Criticality Noted Date Comments Amoxicillin 02/07/2022 Dust Mite Extract 02/07/2022 Gluten Meal 02/07/2022 Iron Sucrose 11/30/2023 Other Reaction(s): allergic reaction Molds & Smuts 02/07/2022 Oxcarbazepine 11/30/2023 Phosphate Other (see comments) 12/01/2023 Medications fluvoxaMINE (LUVOX) 50 MG tablet 50 mg 100 mg at pm Active LORazepam (ATIVAN) 1 MG tablet Take 1 mg by mouth 1 (one) time each day 3 tablets or 2 Active methylphenidate (Concerta) 54 MG CR tablet Take 54 mg by mouth 1 (one) time each day in the morning Do not crush, chew, or split. Active gabapentin (NEURONTIN) 100 MG capsule Take 100 mg by mouth in the morning and 100 mg in the evening and 100 mg before bedtime. Active buPROPion XL (WELLBUTRIN XL) 300 MG 24 hr tablet Take 300 mg by mouth 1 (one) time each day Do not crush, chew, or split. Active ondansetron (ZOFRAN) 4 MG tablet Take 4 mg by mouth every 8 (eight) hours if needed for nausea or vomiting Active metoclopramide (REGLAN) 10 MG tablet Take 10 mg by mouth in the morning and 10 mg at noon and 10 mg in the evening and 10 mg before bedtime. Active Active Problems Problem Noted Date Diagnosed Date Stage 3a chronic kidney disease 12/01/2023 Underweight 11/30/2023 Eating disorder 11/30/2023 Bipolar I disorder 11/30/2023 Attention deficit hyperactivity disorder 024 Anxiety 11/30/2023 Anemia 11/30/2023 Severe major depression 10/26/2022 Suicidal ideation 10/26/2022 Depressive disorder 02/07/2022 Family History Medical History Relation Comments Hypertension Father Cancer Mother Relation Status Comments Father Alive Mother Alive Social History Tobacco Use Types Packs/Day Years Used Date Smoking Tobacco: Never Smokeless Tobacco: Never Tobacco Cessation:Counseling Given: Not Answered Alcohol Use Standard Drinks/Week Comments Never 0 (1 standard drink = 0.6 oz pur e alcohol) Comments Unknown Sex and Gender Information Value Date Recorded Sex Assigned at Not on file Legal Sex Female 10:30 AM EDT Gender Identity Not on file Sexual Orientation Not on file Last Filed Vital Signs Vital Sign Reading Time Taken Comments Blood Pressure - - Pulse - - Temperature - - Respiratory Rate - - Oxygen Saturation - - Inhaled Oxygen Concentration - - Weight 44.6 kg (98 lb 6.4 oz) 12/01/2023 9:03 AM EDT Height - - Body Mass Index - - Plan of Treatment Health Maintenance Due Date Last Done Comments Pneumococcal Vaccine: Pediat rics (0 to 5 Years) and At-Risk Patients (6 to 64 Years) (1 of 2 - PCV) 2004 Hepatitis B Vaccine (1 of 3 - 19+ 3-dose series) 08/29 Influenza Vaccine (#1) 2024 Insurance [facility] ([id number]) [facility] ([id number]) Care Teams Supervisor Compounding And Finishing Relationship Specialty Start Date End Date Luci Parra [address] [place] [id number] PCP - General 10/29/23
--- OUTSIDE RECORDS SUMMARY | 2024-07-23 19:25 | XMS_ITS | Encounter Summary ---
Author Organization [facility] Address [address] [place], [place] [id number] Care Team Providers Care Technical Support Internship Name Role Phone Austin Goff MD Unavailable Luci Parra APRN Primary Care Provider Anthony Maldonado PA-C Unavailable [phone] Encounter Details Date Type Department Care Team (Late st Contact Info) Description 07/04/2024 Telephone [facility] [address] [place] [phone] Ran Mckenzie MD [address] [place] [address] Social History Tobacco Use Types Packs/Day Years Used Date Smoking Tobacco: Never Smokeless Tobacco: Never Alcohol Use Standard Drinks/Week Comments Not Currently 0 (1 standard drink = 0.6 oz pur e alcohol) [facility] Utilities Answer Date Recorded In the past 12 months has [employer] electric, gas, oil, or water company threatened to shut off services in your [...] any time in the past 12 m [facility], were you homeless or living in a fpc (including now)? No 05/27/2024 Sex and Gender Information Value Date Recorded Sex Assigned at Female 03/15/2024 6:18 PM EDT Gender Identity Female 03/15/2024 6:18 PM EDT Sexual Orientation Choose not to disclose 2023 6:18 PM EDT documented as of this encounter Miscellaneous Notes * Telephone Encounter - Jeanne Fowler - 07/04/2024 12:23 PM EST ERROR DUPLICATE documented in this encounter Plan of Treatment Upcoming Encounters Date Type Department Care Team (Late st Contact Info) Description 09/20/2024 3:00 PM EDT Office Visit [facility] [address] [facility] [place] [address] Ran Mckenzie MD [address] [place] [address] documented as of this encounter Visit Diagnoses Not on filedocumented in this encounter Care Teams Technical Support Internship Relationship Specialty Start Date End Date Luci Parra APRN [address] [place] [address] PCP - General 03/28/24 Austin Goff MD [address] [place] [address] Primary Mainspring Former Brace End Cardiovascular Disease 03/27/24 Anthony Maldonado PA-C [address] [place] [address] Advanced Practitioner Cardiac Electrophysiology 06/08/24 documented as of this encounter
--- OUTSIDE RECORDS SUMMARY | 2024-07-23 19:25 | XMS_ITS | Encounter Summary ---
Author Organization [facility] Address [address] [place], [place] [id number] Care Team Providers Care Clinic Physician Name Role Phone Austin Goff MD Unavailable [phone] Luci Parra APRN Primary Care Provider [phone] Anthony Maldonado PA-C Unavailable [phone] Encounter Details Date Type Department Care Team (Late st Contact Info) Description 07/20/2024 Scanned Document [facility] [address] [place] [phone] Ran Mckenzie MD [address] [place] [address] Social History Tobacco Use Types Packs/Day Years Used Date Smoking Tobacco: Never Smokeless Tobacco: Never Alcohol Use Standard Drinks/Week Comments Not Currently 0 (1 standard drink = 0.6 oz pur e alcohol) [facility] Utilities Answer Date Recorded In the past 12 months has [employer] electric, gas, oil, or water company threatened [...] any time in the past 12 m [facility], were you homeless or living in a halfway (including now)? No 05/27/2024 Sex and Gender Information Value Date Recorded Sex Assigned at Female 03/15/2024 6:18 PM EDT Gender Identity Female 03/15/2024 6:18 PM EDT Sexual Orientation Choose not to disclose 2023 6:18 PM EDT documented as of this encounter Plan of Treatment Upcoming Encounters Date Type Department Care Team (Late st Contact Info) Description 09/20/2024 3:00 PM EDT [facility] [address] [address] Ran Mckenzie MD [address] [place] [address] documented as of this encounter Visit Diagnoses Not on filedocumented in this encounter Care Teams Clinic Physician Relationship Specialty Start Date End Date Luci Parra APRN [address] [place] [address] PCP - General 03/28/24 Austin Goff MD [address] [place] [address] Primary Train Controller Cardiovascular Disease 03/27/24 Anthony Maldonado PA-C [address] [place] [address] Advanced Practitioner Cardiac Electrophysiology 06/08/24 documented as of this encounter
--- OUTSIDE RECORDS SUMMARY | 2024-07-23 19:25 | XMS_ITS ---
Author Organization [facility] Address [address] [place] [id number] Care Team Providers Care Senior Process Analyst Name Role Phone ARI SHOOK Primary Care Provider [phone] Luci Parra Unavailable [phone] REASON FOR VISIT Refills MEDICATIONS Medication SIG (Take, Route, Frequency, Duration) Notes Start Date End Date Status Methylphenidate HCl 10 MG/5ML 10 MG/5 mL NJ tube Twice a day AM and Afternoon for 30 days 07/05/2024 08/04/2024 Active clonazePAM 1 MG 1 tablet Orally twic e a day for 14 days 07/05/2024 Active Norethin José-Eth Estrad-FE 1.5-30 MG-MCG 1 tablet Orally Once a day for 90 days 06/10/2023 Active hydrOXYzine HCl 25 MG 1 tablet as needed Orally Once a day for 30 days 07/05/2024 Active EpiPen 2-Emir 0.3 MG/0.3ML as directed In jection every 5 minutes for 1 days 02/21/2024 Active Baclofen 10 MG 1 tablet NJ Once a d ay for 30 days 01/01/2025 Active SOCIAL HISTORY Sex Assigned At : Social History Observation Description Sex Assigned At Female Encounters Encounter Location Date Provider Diagnosis [facility], [address] [id number] 07/05/2024 Luci Parra ADHD (attention deficit hyperactivity disorder), combined type F90.2 ; control counseling Z30.09 ; 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 and Arthritis M19.90 ASSESSMENTS Encounter Date Diagnosis Assessment Notes Treatment Notes Treatment Clinical Notes Section Notes 07/05/2024 ADHD (attention deficit hyperactivity disorder), combined type (ICD-10 - F90.2) 07/05/2024 control counseling (ICD-10 - Z30.09) 07/05/2024 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) 07/05/2024 Arthritis (ICD-10 - M19.90) PLAN OF TREATMENT Medication Medication Name Sig Start Date Stop Date Notes Methylphenidate HCl 10 MG/5ML 10 MG/5 mL NJ tube Twice a day AM and Afternoon for 30 days 07/05/2024 08/04/2024 clonazePAM 1 MG 1 tablet Orally twic e a day for 14 days 07/05/2024 Norethin José-Eth Estrad-FE 1.5-30 MG-MCG 1 tablet Orally Once a day for 90 days 06/10/2023 hydrOXYzine HCl 25 MG 1 tablet as needed Orally Once a day for 30 days 07/05/2024 hydrOXYzine HCl 10 MG 1 tablet Orally On ce a day EpiPen 2-Emir 0.3 MG/0.3ML as directed In jection every 5 minutes for 1 days 02/21/2024 Baclofen 10 MG 1 tablet NJ Once a d ay for 30 days 01/01/2025 Progress Notes * CIPRIANO RASCONOB:2000 (23 yo F)Acc No.[id number]:07/05/2024 Patient:??RACHAEL RASCONFANY :2000?Age:23 Y?Sex:Fe male Phone: Address:[address] [place] [address] , [place] [address] * Refills?? Refill Methylphenidate HCl Solution, 10 MG/5ML, NJ tube, 300 ML, 10 MG/5 mL, Twice a day AM and Afternoon, 30 days, Refills=0 Refill clonazePAM Tablet, 1 MG, Orally, 28 Tablet, 1 tablet, twice a day, 14 days, Refills=4 Refill Norethin José-Eth Estrad-FE Tablet, 1.5-30 MG-MCG, Orally, 90 Tablet, 1 tablet, Once a day, 90 days, Refills=5 Refill EpiPen 2-Emir Solution Auto-injector, 0.3 MG/0.3ML, Injection, 1, as directed, every 5 minutes, 1 days, Refills=5 Refill Baclofen Tablet, 10 MG, NJ, 30 Tablet, 1 tablet, Once a day, 30 days, Refills=5 Start hydrOXYzine HCl Tablet, 25 MG, Orally, 30, 1 tablet as needed, Once a day, 30 days, Refills=3 Stop hydrOXYzine HCl Tablet, 10 MG, Orally, 1 tablet, Once a day * true * Date:??
--- OUTSIDE RECORDS SUMMARY | 2024-07-23 19:25 | XMS_ITS | Encounter Summary ---
Author Organization [facility] Address [address] [place], [place] [id number] Care Team Providers Care Financial Supervisor Name Role Phone Austin Goff MD Unavailable [phone] Luci Parra APRN Primary Care Provider [phone] Anthony Maldonado PA-C Unavailable [phone] Encounter Details Date Type Department Care Team (Latest Contact Info) Description 07/03/2024 Travel Social History Tobacco Use Types Packs/Day Years Used Date Smoking Tobacco: Never Smokeless Tobacco: Never Alcohol Use Standard Drinks/Week Comments Not Currently 0 (1 standard drink = 0.6 oz pur e alcohol) [facility] Utilities Answer Date Recorded In the past 12 months has [employer] electric, gas, oil, or water company threatened [...] any time in the past 12 m [facility], were you homeless or living in a assisted (including now)? No 05/27/2024 Sex and Gender Information Value Date Recorded Sex Assigned at Female 03/15/2024 6:18 PM EDT Gender Identity Female 03/15/2024 6:18 PM EDT Sexual Orientation Choose not to disclose 2023 6:18 PM EDT documented as of this encounter Plan of Treatment Upcoming Encounters Date Type Department Care Team (Late st Contact Info) Description 09/20/2024 3:00 PM EDT Office Visit [facility] [address] [place] [phone] Ran Mckenzie MD [address] [place] [address] documented as of this encounter Visit Diagnoses Not on filedocumented in this encounter Care Teams Financial Supervisor Relationship Specialty Start Date End Date Luci ParraJORJE [address] [place] [address] PCP - General 03/28/24 Austin Goff MD [address] [place] [address] Primary Dial Buffer Cardiovascular Disease 03/27/24 Anthony Maldonado PA-C [address] [place] [address] Advanced Practitioner Cardiac Electrophysiology 06/08/24 documented as of this encounter
--- OUTSIDE RECORDS SUMMARY | 2024-07-23 19:25 | XMS_ITS | Encounter Summary ---
Author Organization [facility] Address [address] [place], [place] [id number] Care Team Providers Care Retail Product Advisor Name Role Phone Asutin Goff MD Unavailable [phone] Luci Parra APRN Primary Care Provider [phone] Anthony Maldonado PA-C Unavailable [phone] Encounter Details Date Type Department Care Team (Late st Contact Info) Description 07/03/[address] [place] [phone] Ran Mckenzie MD [address] [place] [address] Social History Tobacco Use Types Packs/Day Years Used Date Smoking Tobacco: Never Smokeless Tobacco: Never Alcohol Use Standard Drinks/Week Comments Not Currently 0 (1 standard drink = 0.6 oz pur e alcohol) [facility] Utilities Answer Date Recorded In the past 12 months has [employer] electric, gas, oil, or water company threatened [...] any time in the past 12 m [facility], were you homeless or living in a senior living (including now)? No 05/27/2024 Sex and Gender Information Value Date Recorded Sex Assigned at Female 03/15/2024 6:18 PM EDT Gender Identity Female 03/15/2024 6:18 PM EDT Sexual Orientation Choose not to disclose 2023 6:18 PM EDT documented as of this encounter Miscellaneous Notes * Telephone Encounter - Mathew Vázquez - 07/03/2024 4:29 PM EST [facility] called if there are any orders for her feeding and with a plan for her if someone can calling her [phone] * Telephone Encounter - Radha Blackmon MA - 07/03/2024 3:18 PM EST Braulio from [facility] called looking for orders for Kesha's j/g that was placed today. He was also asking if she should continue with her TPN tonight? I did let him know that I would sent a message to Dr. Mckenzie. I did advise since Dr. Mckenzie is not in the office today and I may not be able to get back to him today to have Kesha do her TPN tonight. documented in this encounter Plan of Treatment Upcoming Encounters Date Type Department Care Team (Late st Contact Info) Description 09/20/2024 3:00 PM EDT Office Visit [facility] [address] [place] [address] [place] [address] Ran Mckenzie MD [address] [place] [address] documented as of this encounter Visit Diagnoses Not on filedocumented in this encounter Care Teams Retail Product Advisor Relationship Specialty Start Date End Date Luci Parra APRN [address] [place] [address] PCP - General 03/28/24 Austin Goff MD [address] [place] [address] Primary Back Strip Machine Operator Cardiovascular Disease 03/27/24 Anthony Maldonado PA-C [address] [place] [address] Advanced Practitioner Cardiac Electrophysiology 06/08/24 documented as of this encounter
--- OUTSIDE RECORDS SUMMARY | 2024-07-23 19:25 | XMS_ITS | Encounter Summary ---
Author Organization [facility] Address [address] [place], [place] [address] Care Team Providers Care Project Mgr Name Role Phone Austin Goff MD Unavailable [phone] Luci Parra APRN Primary Care Provider [phone] Anthony Maldonado PA-C Unavailable [phone] Encounter Details Date Type Department Care Team (Late st Contact Info) Description 07/19/2024 Scanned Document [facility] [address] [place] [phone] Ran Mckenzie MD [address] [place] [address] Social History Tobacco Use Types Packs/Day Years Used Date Smoking Tobacco: Never Smokeless Tobacco: Never Alcohol Use Standard Drinks/Week Comments Not Currently 0 (1 standard drink = 0.6 oz pur e alcohol) [facility] Utilities Answer Date Recorded In the past 12 months has [employer] electric, gas, oil, or water company threatened [...] any time in the past 12 m [facility], were you homeless or living in a jail (including now)? No 05/27/2024 Sex and Gender Information Value Date Recorded Sex Assigned at Female 03/15/2024 6:18 PM EDT Gender Identity Female 03/15/2024 6:18 PM EDT Sexual Orientation Choose not to disclose 2023 6:18 PM EDT documented as of this encounter Plan of Treatment Upcoming Encounters Date Type Department Care Team (Late st Contact Info) Description 09/20/2024 3:00 PM EDT [facility] [address] [place] [address] Ran Mckenzie MD [address] [place] [address] documented as of this encounter Visit Diagnoses Not on filedocumented in this encounter Care Teams Project Mgr Relationship Specialty Start Date End Date Luci Parra APRN [address] [place] [address] PCP - General 03/28/24 Austin Goff MD [address] [place] [address] Primary Perinatal Tech Cardiovascular Disease 03/27/24 Anthony Maldonado PA-C [address] [place] [address] Advanced Practitioner Cardiac Electrophysiology 06/08/24 documented as of this encounter
--- OUTSIDE RECORDS SUMMARY | 2024-07-23 19:25 | XMS_ITS | Encounter Summary ---
Author Organization [facility] Address [address] [place] [address] Care Team Providers Care Incubator Tender Name Role Phone Shanti Cadena Primary Care Provider [phone] Austin Goff MD Unavailable [phone] Luci Parra APRN Primary Care Provider [phone] Anthony Maldonado PA-C Unavailable [phone] Encounter Details Date Type Department Care Team (Late st Contact Info) Description 03/17/2021 Lab Requisition [facility] [address] [place] [address] Cecilia Graves, DO [address] [place] [address] Encounter for laboratory testing for COVID-19 virus Social History Tobacco Use Types Packs/Day Years Used Date Smoking Tobacco: Never Smokeless Tobacco: Never Alcohol Use Standard Drinks/Week Comments Not Currently 0 (1 standard drink = 0.6 oz pur e alcohol) Sex and Gender Information Value Date Recorded Sex Assigned at Female 03/15/2024 6:18 PM EDT Gender Identity Female 03/15/2024 6:18 PM EDT Sexual Orientation Choose not to disclose 2023 6:18 PM EDT COVID-19 Exposure Response Date Recorded In the last month, have you been in contact with someone who was confirmed or suspected to have Coronavirus / COVID-19? No / Unsure 03/12/2021 8:00 PM EDT documented as of this encounter Plan of Treatment Upcoming Encounters Date Type Department Care Team (Late st Contact Info) Description 09/20/2024 3:00 PM EDT Office Visit [facility] [address] [facility] [address] Ran Mckenzie MD [address] [place] [address] documented as of this encounter Procedures Procedure Name Priority Date/Time Associated Diagnosis Comments COVID-19 RT-PCR ([facility]) Routine 03/17/2021 1:40 AM EDT Encounter for laboratory testing for COVID-19 virus [ICD-10-CM] documented in this encounter Results * COVID-19 RT-PCR ([facility]) (03/17/2021 1:40 AM EDT) COVID-19 RT-PCR SARS-CoV-2 Not Detected Not Detected 03/17/2021 3:44 PM EDT [facility] Comment: ADDITIONAL INFORMATION The [facility] COVID-19 RT-PCR Assay is a Real-Time Reverse Icer Machine Operator Polymerase Chain Reaction (neck band maker-PCR) for the in vitro qualitative detection of three SARS-CoV-2 target sequences unique to the coronavirus disease 2019 (COVID-19). This is an Emergency Use Authorization (EUA) in vitro diagnostic (IVD) test that has been modified to include the Create automated liquid handler. Its analytical performance characteristics have been determined by the r developer and verified by [facility] in a manner consistent with CLIA requirements. This test may be used for clinical purposes and should not be regarded as purely investigational or for research use only. This laboratory is certified under the Clinical Laboratory Improvement Amendments of 1988 (CLIA-88) as qualified to perform high complexity clinical testing. Reference interval for this testing is SARS-CoV-2 Not Detected . Fact sheets for this Emergency Use Authorization assay can be found at the following links: For Healthcare Providers: https://www.fda.gov/media/773454/download For Patients: https://www.fda.gov/media/647645/download TEST INTERPRETATION Data analysis and interpretation is performed using the [employer] COVID-19 Interpretive Software. SARS-CoV-2 Not Detected: negative for SARS-CoV-2, recommend testing for other viruses if clinically indicated. Positive SARS-CoV-2: positive for SARS-CoV-2. SARS-CoV-2 Inconclusive: the test results were inconclusive two consecutive times from separate nucleic acid extractions. Additional testing should be performed if clinically indicated. Failed: testing failed two consecutive times from separate nucleic acid extractions. Additional specimen should be collected and submitted for testing. The cycle threshold (Ct) value for each COVID target is included for positive specimens. As per the [employer] COVID-19 Combo Kit EUA documentation, each COVID target with a Ct value of <=37 is called Detected . Please note: The [employer] COVID-19 RT-PCR Assay is a qualitative test, and as such the Ct value is interpreted as positive or negative but cannot be used to determine how much virus is present in an individual patient specimen. Ct values should not be used to determine a patient's viral load, how infectious a person may be, or when a person can be released from isolation or quarantine. For more information please refer to: https://www.cdc.gov/coronavirus/2019-ncov/lab/faqs.html#Nxrtrlzmuhnb-Htnfbss-el- Diagn ostic-Tests TEST LIMITATIONS Positive results are indicative of the presence of SARS-CoV-2 RNA; clinical correlation with patient history and other diagnostic information is necessary to determine patient infection status. Positive results do not rule out bacterial infection or co-infection with other viruses. The agent detected may not be the definite cause of disease. Negative results do not exclude SARS-CoV-2 infection and should not be used as the sole basis for patient management decisions. Negative results must be combined with clinical observations, patient history, and epidemiological information. Improper sample collection, transport or storage may impede the ability of the assay to detect target sequences. Inconclusive specimens are not repeated, and recollection and submission of a new sample is recommended. The TaqPath COVID-19 test is for the qualitative detection of nucleic acid from SARS-CoV-2 in upper respiratory specimens (such as nasopharyngeal, oropharyngeal, nasal, and mid-turbinate swabs, and nasopharyngeal aspirate), bronchoalveolar lavage (BAL) and saliva specimens from individuals suspected of COVID-19 by their healthcare provider. The limit of detection for the assay was determined to be 250 viral RNA copies/mL for nasal swabs and 500 viral RNA copies/mL for saliva specimens. Other specimen types may be needed for further validation before testing on this system. For further details refer to the [employer] COVID-19 Combo Kit EUA submission (https://www.[employer].gov/media/327007/download). ----- Test performed by [facility], [address] [place] [address] CLIA# [id number] ? Jefe Peña M.D., Ph.D., ABMGG, Clinical Game Engineer Microbiology Nasopharyngeal swab / Unknown 03/17/2021 1:40 AM EDT 03/17/2021 1:40 AM EDT Narrative [facility] - 03/17/2021 3:44 PM EDT Performed at [facility], [address] [place] [address], [place] Lic 0695, CLIA [id number] Cecilia Graves DO MICROBIOLOGY - GE NERAL ORDERABLES [address] [place] [address] documented in this encounter Visit Diagnoses Diagnosis Encounter for laboratory testing for COVID-19 virus documented in this encounter Additional Health Concerns Infection Onset Date Last Indicated Resolved Time R/O Respiratory Disease 06/01/2024 06/01/202405/23 7:43 AM EST documented as of this encounter Care Teams Incubator Tender Relationship Specialty Start Date End Date Shanti Cadena PCP - General Pediatrics 03/03/17 03/14/24 Luci Parra APRN [address] [place] [address] PCP - General 03/28/24 Austin Goff MD [address] [place] [address] Primary Parallel Computing Software Engineer Cardiovascular Disease 03/27/24 Anthony Maldonado PA-C [address] [place] [address] Advanced Practitioner Cardiac Electrophysiology 06/08/24 documented as of this encounter
--- OUTSIDE RECORDS SUMMARY | 2024-07-23 19:25 | XMS_ITS | Encounter Summary ---
Author Organization [facility] Address [address] [place], [place] [id number] Care Team Providers Care Director Graphics Name Role Phone Austin Goff MD Unavailable [phone] Luci Parra APRN Primary Care Provider [phone] Anthony Maldonado PA-C Unavailable [phone] Encounter Details Date Type Department Care Team (Late st Contact Info) Description 07/02/[address] [facility] [address] [place] [phone] Ran Mckenzie MD [address] [place] [id number] Social History Tobacco Use Types Packs/Day Years Used Date Smoking Tobacco: Never Smokeless Tobacco: Never Alcohol Use Standard Drinks/Week Comments Not Currently 0 (1 standard drink = 0.6 oz pur e alcohol) [facility] Utilities Answer Date Recorded In the past 12 months has [employer] electric, gas, oil, or water company threatened [...] any time in the past 12 m [facility], were you homeless or living in a senior care (including now)? No 05/27/2024 Sex and Gender Information Value Date Recorded Sex Assigned at Female 03/15/2024 6:18 PM EDT Gender Identity Female 03/15/2024 6:18 PM EDT Sexual Orientation Choose not to disclose 2023 6:18 PM EDT documented as of this encounter Miscellaneous Notes * Telephone Encounter - Malvin Santiago - 07/02/2024 3:38 PM EST Trace from [facility] about Kesha he stated she's been having episodes of not quite blacking out,but her blood pressure and heart rate goes up she starts seeing stars and black patterns, he also said she's been getting really bad headaches that don't get better with advil or tylenol, they are concerned since this is happening several times a day, she has also gained 25lbs in 2 and she's concerned about that as well. [phone] best contact for Trace documented in this encounter Plan of Treatment Upcoming Encounters Date Type Department Care Team (Late st Contact Info) Description 09/20/2024 3:00 PM EDT Office Visit [facility] [address] [facility] [place] [address] [place] [phone] Ran Mckenzie MD [address] [place] [address] documented as of this encounter Visit Diagnoses Not on filedocumented in this encounter Care Teams Director Graphics Relationship Specialty Start Date End Date Luci Parra APRN [address] [place] [id number] PCP - General 03/28/24 Austin Goff MD [address] [place] [address] Primary Lipcoat Sprayer Cardiovascular Disease 03/27/24 Anthony Maldonado PA-C [address] [place] [address] Advanced Practitioner Cardiac Electrophysiology 06/08/24 documented as of this encounter
--- OUTSIDE RECORDS SUMMARY | 2024-07-23 19:25 | XMS_ITS | Encounter Summary ---
Author Organization [facility] Address [address] [place], [place] [id number] Care Team Providers Care Insurance Agent Name Role Phone Austin Goff MD Unavailable [phone] Luci Parra APRN Primary Care Provider [phone] Anthony Maldonado PA-C Unavailable [phone] Encounter Details Date Type Department Care Team (Late st Contact Info) Description 04/23/2024 Scanned Document [facility] [address] [place] [address] [address] [place] [phone] Ran Mckenzie MD [address] [place] [id number] Social History Tobacco Use Types Packs/Day Years Used Date Smoking Tobacco: Never Smokeless Tobacco: Never Alcohol Use Standard Drinks/Week Comments Not Currently 0 (1 standard drink = 0.6 oz pur e alcohol) [facility] Utilities Answer Date Recorded In the past 12 months has [employer] electric, gas, oil, or water company threatened to shut off services in your home? No 03/29/2024 AUDIT-C Answer Date Recorded Q1: How often do you have a drink containing alcohol? Never 03/16/2024 Q2: How many drinks containi ng alcohol do you have on a typical day when you are drinking? Patient does not drink Q3: How often do you have si x or more drinks on one occasion? Never 03/16/2024 Hunger Vital Sign Answer Date Recorded Within the past 12 months, y ou worried that your food would run out before you got the money to buy more. Never true 03/29/20 24 Within the past 12 months, t he food you bought just didn't last and you didn't have money to get more. Never true 03/29/2024 PRAPARE - Transportation Answer Date Re corded In the past 12 months, has l ack of transportation kept you from medical appointments or from getting medications? No 11/2023 In the past 12 months, has l ack of transportation kept you from meetings, work, or from getting things needed for daily living? No 03/29/2024 Housing Stability Vital Sign Answer David e Recorded In the last 12 months, was t here a time when you were not able to pay the mortgage or rent on time? No 03/29/2024 In the past 12 months, how m any times have you moved where you were living? 1 03/29/2024 At any time in the past 12 m [facility], were you homeless or living in a intermediate (including now)? No 03/29/2024 Sex and Gender Information Value Date Recorded Sex Assigned at Female 03/15/2024 6:18 PM EDT Gender Identity Female 03/15/2024 6:18 PM EDT Sexual Orientation Choose not to disclose 2023 6:18 PM EDT documented as of this encounter Plan of Treatment Upcoming Encounters Date Type Department Care Team (Late st Contact Info) Description 09/20/2024 3:00 PM EDT Office Visit [facility] [address] [place] [address] [address] [place] [address] Ran Mckenzie MD [address] [place] [phone] documented as of this encounter Visit Diagnoses Not on filedocumented in this encounter Additional Health Concerns Infection Onset Date Last Indicated Resolved Time R/O Respiratory Disease 06/01/2024 06/01/202405/23 7:43 AM EST documented as of this encounter Care Teams Insurance Agent Relationship Specialty Start Date End Date Luci Parra APRN [address] [place] [address] PCP - General 03/28/24 Austin Goff MD [address] [place] [address] Primary Knockdown Worker Cardiovascular Disease 03/27/24 Anthony Maldonado PA-C [address] [place] [address] Advanced Practitioner Cardiac Electrophysiology 06/08/24 documented as of this encounter
--- OUTSIDE RECORDS SUMMARY | 2024-07-23 19:25 | XMS_ITS | Continuity of Care Document ---
Author Organization [facility] Address [address] [place] [address]- Care Team Providers Care Brace Maker Name Role Phone Not on Staff, PCP Primary Care Physician Unavail able Encounter [facility] Date(s): 06/05/24 - 07/05/[address] [address] Attending Physician: Jael Vargas Admitting Physician: Jael Vargas Referring Physician: Jael Vargas Encounter Type: Triage Allergies, Adverse Reactions, Alerts Substance Criticality Severity Reaction Reaction Severity Status amoxicillin Active potassium phosphate-sodium phosphate Active Neutra-Phos Active Venofer allergic reaction Ac tive Glutens Active Trileptal Active Medications Ativan 1 mg oral tablet 1 tablet = 1 mg, By Mouth, 2 times a day, 0 Refills, Maintenance, 10/24/23 9:39:00 AM EDT, Tablet, Partial fill upon patient request if the prescription is for a schedule II opioid drug. Start Date: 10/24/23 Status: Ordered Repeat number: 1 baclofen 10 mg oral tablet 5 mg, 0.5, tablet, By Mouth, 3 times a day, # 30 tablet, Refills 0, Maintenance, 06/13/24 2:25:00 PMEST, Partial fill upon patient request if the prescription is for a schedule II opioid drug. Start Date: 06/13/24 Status: Ordered Quantity: 30.0 Unit: tablet Repeat number: 1 Benadryl 25 mg oral capsule 1 capsule = 25 mg, By Mouth, Every 6 hours, 0 Refills, Maintenance, 06/13/24 2:29:00 PM EST, Partialfill upon patient request if the prescription is for a schedule II opioid drug. Start Date: 06/13/24 Status: Ordered Repeat number: 1 buPROPion 300 mg/24 hours (XL) oral tablet, extended release 1 tablet = 300 mg, By Mouth, Daily, # 7 tablet, 0 Refills, Maintenance, 09/06/23 3:20:00 PM EDT, XL Tablet, [facility]/pharmacy #[id number], Partial fill upon patient request if the prescription is for a schedule II opioid drug., 160, cm, 09/06/23 9:02:00 EDT, Height, 45, kg, 09/02/23 23:56:00 EDT, Dry Weight Start Date: 09/06/23 Status: Ordered Quantity: 7.0 Unit: tablet Repeat number: 1 Cromolyn 4 times a day, 0 Refills, Maintenance, 06/13/24 2:27:00 PM EST, Partial fill upon patient request ifthe prescription is for a schedule II opioid drug. Start Date: 06/13/24 Status: Ordered Repeat number: 1 Epipen Auto Injector = 0.3 mg, Intramuscular, Once, 0 Refills, Maintenance, 06/13/24 2:26:00 PM EST, Partial fill upon patient request if the prescription is for a schedule II opioid drug. Start Date: 06/13/24 Status: Ordered Repeat number: 1 famotidine 20 mg oral tablet 20 mg, 1, tablet, By Mouth, 2 times a day, # 180 tablet, Refills 0, Maintenance, 06/13/24 2:28:00 PMEST, Partial fill upon patient request if the prescription is for a schedule II opioid drug. Start Date: 06/13/24 Status: Ordered Quantity: 180.0 Unit: tablet Repeat number: 1 fexofenadine 180 mg oral tablet 1 tablet = 180 mg, By Mouth, Daily, # 30 tablet, 0 Refills, Maintenance, 06/13/24 2:17:00 PM EST, Tablet, Partial fill upon patient request if the prescription is for a schedule II opioid drug. Start Date: 06/13/24 Status: Ordered Quantity: 30.0 Unit: tablet Repeat number: 1 Fludrocortisone = 0.1 mg, By Mouth, Daily, 0 Refills, Maintenance, 06/13/24 2:29:00 PM EST, Partial fill upon patient request if the prescription is for a schedule II opioid drug. Start Date: 06/13/24 Status: Ordered Repeat number: 1 fluvoxaMINE 25 mg oral tablet 1 tablet = 25 mg, By Mouth, Daily at bedtime, 0 Refills, Maintenance, 06/13/24 2:26:00 PM EST, Partial fill upon patient request if the prescription is for a schedule II opioid drug. Start Date: 06/13/24 Status: Ordered Repeat number: 1 gabapentin 400 mg oral capsule 400 mg, 1, capsule, By Mouth, 3 times a day, Refills 0, Maintenance, 09/06/23 3:22:00 PM EDT, Partial fill upon patient request if the prescription is for a schedule II opioid drug. Start Date: 09/06/23 Status: Ordered Repeat number: 1 hydrOXYzine hydrochloride 10 mg oral tablet 2 tablet = 20 mg, By Mouth, 4 times a day, 0 Refills, Maintenance, 06/13/24 2:15:00 PM EST, Partial fill upon patient request if the prescription is for a schedule II opioid drug. Start Date: 06/13/24 Status: Ordered Repeat number: 1 ivabradine 5 mg oral tablet 1 tablet = 5 mg, By Mouth, 0 Refills, Maintenance, 06/13/24 2:27:00 PM EST, Partial fill upon patient request if the prescription is for a schedule II opioid drug. Start Date: 06/13/24 Status: Ordered Repeat number: 1.5/30 oral tablet 1 tablet, By Mouth, Daily, 0 Refills, Maintenance, 06/13/24 2:17:00 PM EST, Partial fill upon patient request if the prescription is for a schedule II opioid drug. Start Date: 06/13/24 Status: Ordered Repeat number: 1.530 oral tablet 0 Refills, Maintenance, 09/01/23 8:33:00 AM EDT, Partial fill upon patient request if the prescription is for a schedule II opioid drug. Start Date: 09/01/23 Status: Ordered Repeat number: 1 KlonoPIN 1 mg oral tablet 1 tablet = 1 mg, By Mouth, 2 times a day, 0 Refills, Maintenance, 06/13/24 2:18:00 PM EST, Tablet, Partial fill upon patient request if the prescription is for a schedule II opioid drug. Start Date: 06/13/24 Status: Ordered Repeat number: 1 loratadine 10 mg oral capsule 1 capsule = 10 mg, By Mouth, Daily, 0 Refills, Maintenance, 06/13/24 2:28:00 PM EST, Partial fill upon patient request if the prescription is for a schedule II opioid drug. Start Date: 06/13/24 Status: Ordered Repeat number: 1 Magnesium Citrate By Mouth, 0 Refills, Maintenance, 06/13/24 2:17:00 PM EST, Partial fill upon patient request if the prescription is for a schedule II opioid drug. Start Date: 06/13/24 Status: Ordered Repeat number: 1 Melatonin Daily at bedtime, 0 Refills, Maintenance, 09/16/22 10:06:00 AM EDT, Partial fill upon patient request if the prescription is for a schedule II opioid drug. Start Date: 09/16/22 Status: Ordered Repeat number: 1 Methylphenidate By Mouth, 0 Refills, Maintenance, 06/13/24 2:29:00 PM EST, Partial fill upon patient request if the prescription is for a schedule II opioid drug. Start Date: 06/13/24 Status: Ordered Repeat number: 1 methylphenidate 54 mg oral tablet, extended release 1 tablet = 54 mg, By Mouth, Daily in AM, 0 Refills, Maintenance, 10/24/23 3:09:00 AM EDT, ER Tablet, Partial fill upon patient request if the prescription is for a schedule II opioid drug. Start Date: 10/24/23 Status: Ordered Repeat number: 1 metoclopramide 10 mg oral tablet 0 Refills, Maintenance, 09/01/23 8:33:00 AM EDT, Partial fill upon patient request if the prescription is for a schedule II opioid drug. Start Date: 09/01/23 Status: Ordered Repeat number: 1 MiraLax = 17 Gm, By Mouth, Daily, 0 Refills, Maintenance, 06/13/24 2:16:00 PM EST, Partial fill upon patientrequest if the prescription is for a schedule II opioid drug. Start Date: 06/13/24 Status: Ordered Repeat number: 1 multivitamin Multiple Vitamins oral tablet 1 tablet, By Mouth, Daily, # 30 tablet, 0 Refills, Maintenance, 10/25/23 4:36:00 PM EDT, Tablet, [facility]/pharmacy #[id number], Partial fill upon patient request if the prescription is for a schedule II opioid drug., 1 tablet By Mouth Daily,x30 days, 161, cm, 10/25/23 14:33:00 EDT, Height, 46.1, kg, 10/24/23 4:11:00 EDT, Dry Weight Start Date: 10/25/23 Stop Date: 11/24/23 Status: Ordered Quantity: 30.0 Unit: tablet Repeat number: 1 ondansetron 4 mg oral tablet 1 tablet = 4 mg, By Mouth, Every 8 hours, 0 Refills, Maintenance, 06/13/24 2:24:00 PM EST, Partial fill upon patient request if the prescription is for a schedule II opioid drug. Start Date: 06/13/24 Status: Ordered Repeat number: 1 ondansetron 4 mg oral tablet, disintegrating 1 tablet = 4 mg, By Mouth, Every 8 hours, PRN as needed for nausea/vomiting, # 10 tablet, 0 Refills, Maintenance, 11/18/23 8:42:00 PM EDT, DIS Tablet, [facility]/pharmacy #[id number], Partial fill upon patient request if the prescription is for a schedule II opioid drug., 160, cm, 11/18/23 15:37:00 EDT, Height, 43.5, kg, 11/18/23 15:37:00 EDT, Dry Weight Start Date: 11/18/23 Status: Ordered Quantity: 10.0 Unit: tablet Repeat number: 1 pantoprazole 40 mg oral delayed release tablet 1 tablet = 40 mg, By Mouth, Daily, # 30 tablet, 0 Refills, Maintenance, 06/13/24 2:15:00 PM EST, EC Tablet Start Date: 06/13/24 Status: Ordered Quantity: 30.0 Unit: tablet Repeat number: 1 promethazine 6.25 mg/5 mL oral syrup 5 mL = 6.25 mg, By Mouth, 4 times a day, PRN for nausea/vomiting, # 200 mL, 0 Refills, Maintenance,06/13/24 2:16:00 PM EST, Syrup, Partial fill upon patient request if the prescription is for a schedule II opioid drug. Start Date: 06/13/24 Status: Ordered Quantity: 200.0 Unit: mL Repeat number: 1 senna - oral tablet By Mouth, Daily, 0 Refills, Maintenance, 06/13/24 2:16:00 PM EST, Partial fill upon patient request if the prescription is for a schedule II opioid drug. Start Date: 06/13/24 Status: Ordered Repeat number: 1 Problem List Condition Confirmation Course Effective Dates Status H ealth Status Informant JAYSON (acute kidney injury) Confirmed Active Anemia Confirmed Active Anxiety Confirmed Active ADHD Confirmed Active Bipolar disorder Confirmed Active Bipolar I disorder Confirmed Active Muscle cramping Confirmed Active Eating disorder Confirmed Active Hypophosphatemia Confirmed Active Iron deficiency anemia Confirmed 06/13/24 Active Palpitations Confirmed Active Panic anxiety syndrome Confirmed Active Weight loss Confirmed Active Social History Social History Type Response Smoking Status Never (less than 100 in lifetime) entered on: 05/11/23 Sex Sex Representation Female (finding) Patient Care team information Care Team Personnel Name: Madalyn Henao RN Position: [facility] Onco RN Member Role: Primary Care Nurse Name: Omi Dietz RN Position: [facility] RN Member Role: Primary Care Nurse Name: Not on Staff, PCP Position: [facility] Physician (General Medicine) Member Role: PCP Name: Russell Fuentes MD Position: [facility] Renal MD Member Role: Lifetime Consulting Physician Address: [address] [place] [address] [address] [facility] [address] Telecom: Name: Valentin Villalpando RN Position: [facility] RN Member Role: Primary Care Nurse Care Team Related Persons Name: ROBERT, MICHEAL Name: SAHRA RASCON Name: IRVIN RASCON Name: SAHRA ODEN Insurance Providers Guarantor name: DESIRAE RASCON Health Plan Information #: 1 Payer: [employer] IN[employer] Member Number: NA Policy Number: NA Group Number: NA Health Plan Information #: 2 Payer: [employer] Member Number: NA Policy Number: NA Group Number: NA
--- OUTSIDE RECORDS SUMMARY | 2024-07-23 19:25 | XMS_ITS | Encounter Summary ---
Author Organization Formerly [facility] Address [address] [place] [address] Care Team Providers Care Surveillance Sensor Operator Name Role Phone Austin Goff MD Unavailable Luci Parra APRN Primary Care Provider [phone] Anthony Maldonado PA-C Unavailable [phone] Reason for Visit * Auth/Cert Specialty Diagnoses / Procedures Referred By Contac t Referred To Contact Diagnoses Nausea and vomiting, unspecified vomiting type Ongoing NV and currently has DHT Procedures MT INSERT CECOSTOMY/OTHER COLONIC TUBE PERCUTANEOUS IR Insert G/J Tube Incl Imaging Referral ID Status Reason Start Date Expiration Date Visits Re quested Visits Authorized [id number] 1 1 Encounter Details Date Type Department Care Team (Latest Contact Info) Description 07/03/2024 10:02 AM EST - 07/03/2024 1:[address] [facility] Hospital Encounter [facility] [address] [place] [phone] Sameer Santana MD [address] [place] [address] Nausea and vomiting, unspecified vomiting type Discharge Disposition: Home or Self Care Social History Tobacco Use Types Packs/Day Years Used Date Smoking Tobacco: Never Smokeless Tobacco: Never Alcohol Use Standard Drinks/Week Comments Not Currently 0 (1 standard drink = 0.6 oz pur e alcohol) [facility] Utilities Answer Date Recorded In the past 12 months has th e electric, gas, oil, or water company threatened [...] any time in the past 12 m [facility], were you homeless or living in a long-term (including now)? No 05/27/2024 Sex and Gender Information Value Date Recorded Sex Assigned at Female 03/15/2024 6:18 PM EDT Gender Identity Female 03/15/2024 6:18 PM EDT Sexual Orientation Choose not to disclose 2023 6:18 PM EDT documented as of this encounter Last Filed Vital Signs Vital Sign Reading Time Taken Comments Blood Pressure 124/82 07/03/2024 1:00 PM EST Pulse 100 07/03/2024 1:00 PM EST Temperature 35.8 ??C (96.4 ??F) 07/03/2024 12:[address] Respiratory Rate 18 07/03/2024 1:00 PM EST Oxygen Saturation 99% 07/03/2024 1:00 PM EST Inhaled Oxygen Concentration - - Weight - - Height - - Body Mass Index - - documented in this encounter Discharge Instructions * Discharge Instructions* Francheska Rock RN - 07/03/2024 11:53 AM EST In the event of an emergency, please call 911 and proceed to the nearest Hospital. For routine questions, please call Radiology Recovery: [phone] (Mon-Fri 7a-7p). After hours, call: [phone] (Resident nurse infection control/nights & weekends) For any questions regarding your procedure, please call your primary care physician or the orderingphysician. * Attachments The following attachments cannot be sent through Care Everywhere. * General Anesthesia Adult Care After (Canadian) * Gastrostomy Tube Replacement Care After ([place]) documented in this encounter Medications at Time of Discharge Medication Sig Dispensed Refills Start Date End Date aspirin 81 MG chewable tablet Chew 1 tablet (81 mg total) daily. baclofen (LIORESAL) 10 MG tablet Take 1 tablet (10 mg total) by mouth every evening. 02/21/2024 clonazePAM (KlonoPIN) 1 MG tablet TAKE 1 TABLET BY MOUTH TWICE A DAY FOR 28 DAYS 03/28/2024 diphenhydrAMINE (BENADRYL) 12.5 mg/5 mL liquid Take 20 mL (50 mg total) by mouth 2 (two) times a day as needed for allergies. EPINEPHrine 0.3 mg/0.3 mL IJ auto-injection Inject 0.3 mL (0.3 mg total) into the thigh once as needed for allergic reaction. famotidine (PEPCID) 20 MG tabletIndications:Ga stroesophageal reflux disease, unspecified whether esophagitis present Take 1 tablet (20 mg total) by mouth daily. 30 tablet 03/31/2024 fexofenadine (JAYLENE) 180 MG tablet Take 1 tablet (180 mg total) by mouth daily. 02/15/2024 fludrocortisone (FLORINEF) 0.1 MG tabletIndications:Or thostatic hypotension Take 1 tablet (0.1 mg total) by mouth daily. 30 tablet 03/31/2024 fluticasone (FloNASE) 50 mcg/spray nasal spray 1 spray into each nostril daily as needed. fluvoxaMINE (LUVOX) 100 MG tablet Take 1 tablet (100 mg total) by mouth 2 times a day. Part of 125 mg dose fluvoxaMINE (LUVOX) 25 MG tablet Take 1 tablet (25 mg total) by mouth 2 (two) times a day. Part of 125 mg dose guaiFENesin (ROBITUSSIN) 100 mg/5 mL Liquid liquidIndications:Na usea & vomiting Take 10 mL (200 mg total) by mouth every 4 (four) hours as needed for cough. 1200 mL 06/04/2024 hydrOXYzine HCl (ATARAX) 10 MG tabletIndications:Na usea & vomiting Take 1 tablet (10 mg total) by mouth nightly. 30 tablet 06/04/2024 LORazepam (ATIVAN) 1 MG tablet Take 1 tablet (1 mg total) by mouth 3 times daily (every 8 hours) as needed for anxiety. 12/20/2023 ondansetron (ZOFRAN) 8 MG tabletIndications:Vo miting associated with bulimia nervosa with nausea Take 1 tablet (8 mg total) by mouth 3 times daily (every 8 hours) as needed for nausea or vomiting. 30 tablet 03/30/2024 polyethylene glycol (miraLAx) 17 g packetIndications:Na usea & vomiting 1 packet (17 g total) by NG Tube route daily as needed for constipation. 14 packet 06/04/2024 proMETHAZINE (PHENERGAN) 6.25 mg/5 mL oral solutionIndications: Nausea and vomiting, unspecified vomiting type Take 10 mL (12.5 mg total) by mouth 4 times daily (every 6 hours) as needed for nausea or vomiting. 300 mL 06/11/2024 senna-docusate (SENNA-S) 8.6-50 MGIndications:Nausea & vomiting Take 2 tablets by mouth nightly as needed for constipation. 30 tablet 06/04/2024 simethicone (MYLICON) 80 MG chewable tabletIndications:Fl atulence Chew 1 tablet (80 mg total) 4 times daily (every 6 hours) as needed for gastrointestinal distress or flatulence. 12/20/2023 sodium chloride (NS) bolusIndications:[place] and vomiting, unspecified vomiting type,POTS (postural orthostatic tachycardia syndrome) Bolus 1 L normal saline on mon, wed, Fri as needed for dehydration, diarrhea. 1000 mL 05/24/2024 documented as of this encounter Miscellaneous Notes * Plan of Care - Lauren Pal RN - 07/03/2024 11:00 AM EST Ongoing Case Management Care Plan Note Summary: This CM confirmed with patient she is active with [facility] in [place] for tube feedings and supplies, not active with any other HC agency, declined the need for additional services. Return referral and update placed to [facility]. Recommendation: Home with [facility] Lauren Pal 07/03/2024 11:00 AM documented in this encounter Plan of Treatment Upcoming Encounters Date Type Department Care Team (Late st Contact Info) Description 09/20/2024 3:00 PM EDT Office Visit [facility] [address] [place] [address] [place] [address] Ran Mckenzie MD [address] [place] [address] documented as of this encounter Procedures Procedure Name Priority Date/Time Associated Diagnosis Comments IR INSERT G-J TUBE INCL IMAGING Routine 07/03/2024 12:17 PM EST Nausea and vomiting, unspecified vomiting type documented in this encounter Results * IR INSERT G-J TUBE INCL IMAGING (07/03/2024 12:17 PM EST) Anatomical Region Laterality Modality X-Ray Angiograph y 07/03/2024 11:1 3 AM EST Impressions 07/05/2024 1:03 PM EST Percutaneous placement of 16 [place] gastrojejunostomy tube. Plan: Patient stable for discharge following recovery from anesthesia. Okay to use up to 24 hours. PROCEDURE SUMMARY: - Gastrojejunostomy tube placement under fluoroscopic guidance - Additional procedure(s): None PROCEDURE DETAILS: Pre-procedure Consent: Informed consent for the procedure including risks, benefits and alternatives was obtained and time-out was performed prior to the procedure. Preparation: The site was prepared and draped using maximal sterile barrier technique including cutaneous antisepsis. Anesthesia/sedation Level of anesthesia/sedation: General anesthesia Anesthesia/sedation administered by: Anesthesiology Total intra-service sedation time (minutes): Please see anesthesia care note Sedation Medications Versed: 0 mg IV Fentanyl: 0 mcg IV Gastrojejunostomy tube placement The liver margin was localized by ultrasound. A catheter was passed through the mouth and into the stomach under fluoroscopic guidance. Local anesthesia was administered. The stomach was inflated with air and judged appropriate for access. 3 T-fasteners were placed under fluoroscopic guidance. The stomach was accessed and a wire was placed. The tract was dilated and the gastrojejunostomy tube was advanced into the jejunum. Intragastric position of the gastric port and intrajejunal position of the jejunal port were confirmed with contrast injection. The tube was placed to gravity drainage. Gastrojejunostomy tube placed: 16 [place] CASSANDRA gastrojejunostomy tube. Internal catheter securement: Balloon External catheter securement: Retention disc Contrast Contrast agent: Omnipaque 300 Contrast volume (mL): 20 Radiation Dose Fluoroscopy time (minutes): 12.2 ?? Reference air kerma (mGy): 73.6 Kerma area product (uGy-m2): 981.89 Additional Details Additional description of procedure: None Equipment details: None Specimens removed: None Estimated blood loss (mL): Less than 10 Standardized report: [email or web address] Attestation Signer name: Anisha Almodovar MD I attest that I was present for the entire procedure. I reviewed the stored images and agree with the report as written. IMPRESSION: Unremarkable examination. ?? Narrative 07/05/2024 1:03 PM EST PROCEDURE: Gastrojejunostomy tube placement Referring provider: SAMEER SANTANA Procedural Personnel Attending physician(s): Anisha Almodovar MD Resident physician(s): None Advanced practice provider(s): None Pre-procedure diagnosis: Gastroparesis Post-procedure diagnosis: Same Indication: Nutritional support in setting of poor gastric emptying Additional clinical history: None Complications: No immediate complications. Procedure Note Anisha Almodovar MD - 07/05/2024 PROCEDURE: Gastrojejunostomy tube placement Referring provider: SAMEER SANTANA Procedural Personnel Attending physician(s): Anisha Almodovar MD Resident physician(s): None Advanced practice provider(s): None Pre-procedure diagnosis: Gastroparesis Post-procedure diagnosis: Same Indication: Nutritional support in setting of poor gastric emptying Additional clinical history: None Complications: No immediate complications. IMPRESSION: Percutaneous placement of 16 [place] gastrojejunostomy tube. Plan: Patient stable for discharge following recovery from anesthesia. Okay to use up to 24 hours. PROCEDURE SUMMARY: - Gastrojejunostomy tube placement under fluoroscopic guidance - Additional procedure(s): None PROCEDURE DETAILS: Pre-procedure Consent: Informed consent for the procedure including risks, benefits and alternatives was obtained and time-out was performed prior to the procedure. Preparation: The site was prepared and draped using maximal sterile barrier technique including cutaneous antisepsis. Anesthesia/sedation Level of anesthesia/sedation: General anesthesia Anesthesia/sedation administered by: Anesthesiology Total intra-service sedation time (minutes): Please see anesthesia care note Sedation Medications Versed: 0 mg IV Fentanyl: 0 mcg IV Gastrojejunostomy tube placement The liver margin was localized by ultrasound. A catheter was passed through the mouth and into the stomach under fluoroscopic guidance. Local anesthesia was administered. The stomach was inflated with air and judged appropriate for access. 3 T-fasteners were placed under fluoroscopic guidance. The stomach was accessed and a wire was placed. The tract was dilated and the gastrojejunostomy tube was advanced into the jejunum. Intragastric position of the gastric port and intrajejunal position of the jejunal port were confirmed with contrast injection. The tube was placed to gravity drainage. Gastrojejunostomy tube placed: 16 [place] CASSANDRA gastrojejunostomy tube. Internal catheter securement: Balloon External catheter securement: Retention disc Contrast Contrast agent: Omnipaque 300 Contrast volume (mL): 20 Radiation Dose Fluoroscopy time (minutes): 12.2 Reference air kerma (mGy): 73.6 Kerma area product (uGy-m2): 981.89 Additional Details Additional description of procedure: None Equipment details: None Specimens removed: None Estimated blood loss (mL): Less than 10 Standardized report: [email or web address] Attestation Signer name: Anisha Almodovar MD I attest that I was present for the entire procedure. I reviewed the stored images and agree with the report as written. IMPRESSION: Unremarkable examination. Anisha Almodovar MD IMG IR ORDERABLES documented in this encounter Visit Diagnoses Diagnosis Nausea and vomiting, unspecified vomiting type Nausea and vomiting, unspecified vomiting type documented in this encounter Administered Medications Inactive Administered Medications - up to 1 most recent administrations Medication Order MAR Action Action Date Dose Rate Site diphenhydrAMINE (BENADRYL) injection 12.5 mg 12.5 mg, Intravenous, Every 6 hours PRN, itching, allergies, sleep, agitation, fOR NAUSEA ANND VOMITING, Starting on Tue07/03/24 at 1304, For 2 doses, PACU (only), For a maximum total dose of 25 mg If ordered IV push, inject at a rate of 25 mg/minute or LESS. fentaNYL (SUBLIMAZE) 100 mcg/2 mL injection 10 mcg 10 mcg, Intravenous, Every 5 min PRN, mild pain 1-3, Starting on Tue07/03/24 at 1304, For 7 days, PACU (only), If a total of 125 mcg has been administered across all pain scales, contact an anesthesia provider for reassessment fentaNYL (SUBLIMAZE) 100 mcg/2 mL injection 12.5 mcg 12.5 mcg, Intravenous, Every 5 min PRN, moderate to moderately severe pain 4-6, Starting on Tue07/03/24 at 1304, For 7 days, PACU (only), If a total of 125 mcg has been administered across all pain scales, contact an anesthesia provider for reassessment fentaNYL (SUBLIMAZE) 100 mcg/2 mL injection 25 mcg 25 mcg, Intravenous, Every 5 min PRN, severe to excruciating pain 7-10, Starting on Tue07/03/24 at 1304, For 7 days, PACU (only), If a total of 125 mcg has been administered across all pain scales, contact an anesthesia provider for reassessment scopolamine (TRANSDERM-SCOP) 1 patch 1 patch, Transdermal, As needed, nausea, vomiting, Starting on Tue07/03/24 at 1304, PACU (only), Apply to hairless area of skin behind the ear. Do not use patch if damaged or cut. documented in this encounter Active and Recently Administered Medications Times are shown in EST. PRN Medication Order 07/01/2024 07/02/2024 07/03/2024 diphenhydrAMINE (BENADRYL) injection 12.5 mg 12.5 mg, Intravenous, Every 6 hours PRN, itching, allergies, sleep, agitation, fOR NAUSEA ANND VOMITING, Starting on Tue07/03/24 at 1304, For 2 doses, PACU (only), For a maximum total dose of 25 mg If ordered IV push, inject at a rate of 25 mg/minute or LESS. fentaNYL (SUBLIMAZE) 100 mcg/2 mL injection 10 mcg(Linked Group 1) 10 mcg, Intravenous, Every 5 min PRN, mild pain 1-3, Starting on Tue07/03/24 at 1304, For 7 days, PACU (only), If a total of 125 mcg has been administered across all pain scales, contact an anesthesia provider for reassessment fentaNYL (SUBLIMAZE) 100 mcg/2 mL injection 12.5 mcg(Linked Group 1) 12.5 mcg, Intravenous, Every 5 min PRN, moderate to moderately severe pain 4-6, Starting on Tue07/03/24 at 1304, For 7 days, PACU (only), If a total of 125 mcg has been administered across all pain scales, contact an anesthesia provider for reassessment fentaNYL (SUBLIMAZE) 100 mcg/2 mL injection 25 mcg(Linked Group 1) 25 mcg, Intravenous, Every 5 min PRN, severe to excruciating pain 7-10, Starting on Tue07/03/24 at 1304, For 7 days, PACU (only), If a total of 125 mcg has been administered across all pain scales, contact an anesthesia provider for reassessment heparin 1000 units/500 mL NS flush for catheter PREMIX (COMPLETED) Continuous PRN, Starting on Tue07/03/24 at 1140, Intra-Procedure (IR) 1140 (New Bag - Prov ider: Anisha Almodovar MD) iohexol (OMNIPAQUE) 300 mg/mL injection (CANCELED) As needed, Starting on Tue07/03/24 at 1140, Intra-Procedure (IR) 1140 (Given - Provid er: Anisha Almodovar MD) lidocaine (XYLOCAINE) 1 % injection (CANCELED) As needed, Starting on Tue07/03/24 at 1140, Intra-Procedure (IR) 1140 (Given - Provid er: Anisha Almodovar MD) scopolamine (TRANSDERM-SCOP) 1 patch 1 patch, Transdermal, As needed, nausea, vomiting, Starting on Tue07/03/24 at 1304, PACU (only), Apply to hairless area of skin behind the ear. Do not use patch if damaged or cut. Linked Groups Order Group 1: fentaNYL (SUBLIMAZE) 100 mcg/2 mL injection 10 mcgJump to med 10 mcg, Intravenous, Every 5 min PRN, mild pain 1-3, Starting on Tue07/03/24 at 1304, For 7 days, PACU (only), If a total of 125 mcg has been administered across all pain scales, contact an anesthesia provider for reassessment Or fentaNYL (SUBLIMAZE) 100 mcg/2 mL injection 12.5 mcgJump to med 12.5 mcg, Intravenous, Every 5 min PRN, moderate to moderately severe pain 4-6, Starting on Tue07/03/24 at 1304, For 7 days, PACU (only), If a total of 125 mcg has been administered across all pain scales, contact an anesthesia provider for reassessment Or fentaNYL (SUBLIMAZE) 100 mcg/2 mL injection 25 mcgJump to med 25 mcg, Intravenous, Every 5 min PRN, severe to excruciating pain 7-10, Starting on Tue07/03/24 at 1304, For 7 days, PACU (only), If a total of 125 mcg has been administered across all pain scales, contact an anesthesia provider for reassessment documented in this encounter Care Teams Surveillance Sensor Operator Relationship Specialty Start Date End Date Luci Parra APRN [address] [place] [address] PCP - General 03/28/24 Austin Goff MD [address] [place] [address] Primary Remote Control Assembler Cardiovascular Disease 03/27/24 Anthony Maldonado PA-C [address] [place] [address] Advanced Practitioner Cardiac Electrophysiology 06/08/24 documented as of this encounter
--- OUTSIDE RECORDS SUMMARY | 2024-07-23 19:25 | XMS_ITS | Encounter Summary ---
Author Organization [facility] Address [address] [place], [place] [id number] Care Team Providers Care Web Software Engineer Name Role Phone Austin Goff MD Unavailable [phone] Luci Parra APRN Primary Care Provider [phone] Anthony Maldonado PA-C Unavailable [phone] Encounter Details Date Type Department Care Team (Late st Contact Info) Description 06/15/2024 Scanned Document [facility] [address] [place] [address] [place] [phone] Ran Mckenzie MD [address] [place] [address] Social History Tobacco Use Types Packs/Day Years Used Date Smoking Tobacco: Never Smokeless Tobacco: Never Alcohol Use Standard Drinks/Week Comments Not Currently 0 (1 standard drink = 0.6 oz pur e alcohol) [facility] Utilities Answer Date Recorded In the past 12 months has [employer] electric, gas, oil, or water company threatened [...] any time in the past 12 m [facility], were you homeless or living in a retirement (including now)? No 05/27/2024 Sex and Gender Information Value Date Recorded Sex Assigned at Female 03/15/2024 6:18 PM EDT Gender Identity Female 03/15/2024 6:18 PM EDT Sexual Orientation Choose not to disclose 2023 6:18 PM EDT documented as of this encounter Plan of Treatment Upcoming Encounters Date Type Department Care Team (Late st Contact Info) Description 09/20/2024 3:00 PM EDT [facility] [address] [place] [address] [place] [address] Ran Mckenzie MD [address] [place] [address] documented as of this encounter Visit Diagnoses Not on filedocumented in this encounter Care Teams Web Software Engineer Relationship Specialty Start Date End Date Luci Parra APRN [address] [place] [address] PCP - General 03/28/24 Austin Goff MD [address] [place] [phone] Primary Engine Maintenance Mechanic Cardiovascular Disease 03/27/24 Anthony Maldonado PA-C [address] [place] [address] Advanced Practitioner Cardiac Electrophysiology 06/08/24 documented as of this encounter
--- OUTSIDE RECORDS SUMMARY | 2024-07-23 19:25 | XMS_ITS ---
Author Organization [facility] Address [address] [place], [place] [id number] Care Team Providers Care Corrugator Operator Helper Name Role Phone ARI SHOOK Primary Care Provider Luci Parra [phone] REASON FOR VISIT FU SOCIAL HISTORY Sex Assigned At : Social History Observation Description Sex Assigned At Female Encounters Encounter Location Date Provider Diagnosis [facility], [address] [phone] 06/21/2024 Luci Parra PLAN OF TREATMENT No Information Progress Notes * CIPRIANO RASCONOB:2000 (23 yo F)Acc No.[id number]:06/21/2024 Progress Notes Patient:??DESIRAE RASCON Provider:??Luci Parra DNP :2000?Age:23 Y?Sex:Fe male Date:06/21/2024 Phone: Address: [address] [facility] [id number] Pcp:ARI SHOOK Subjective: * Chief Complaints: * ?1. FU. * Medical History:?? Objective: Assessment: Plan: * Treatment: * Billing Information: * Visit Code:?? * Procedure Codes:?? * Sign off status: Pending * Provider:??Luci Parra DNP Date:??
--- OUTSIDE RECORDS SUMMARY | 2024-07-23 19:25 | XMS_ITS | Encounter Summary ---
Author Organization [facility] Address [address] [place], [place] [id number] Care Team Providers Care Shingle Grader Name Role Phone Austin Goff MD Unavailable [phone] Luci Parra APRN Primary Care Provider [phone] Anthony Maldonado PA-C Unavailable [phone] Encounter Details Date Type Department Care Team (Late st Contact Info) Description 07/04/2024 Orders Only [facility] [address] [place] [place] [address] [place] [phone] Ran Mckenzie MD [address] [place] [address] Generalized abdominal pain (Primary Dx) Social History Tobacco Use Types Packs/Day Years Used Date Smoking Tobacco: Never Smokeless Tobacco: Never Alcohol Use Standard Drinks/Week Comments Not Currently 0 (1 standard drink = 0.6 oz pur e alcohol) [facility] Utilities Answer Date Recorded In the past 12 months has [employer], gas, oil, or water company threatened to [...] any time in the past 12 m [facility], were you homeless or living in a [...] 09/20/2024 3:00 PM EDT Office Visit [facility] [address] [place] [address] [place] [address] Ran Mckenzie MD [address] [place] [address] documented as of this encounter Visit Diagnoses Diagnosis Generalized abdominal pain- Primary Abdominal pain, generalized documented in this encounter Care Teams Shingle Grader Relationship Specialty Start Date End Date Luci Parra APRN [address] [place] [phone] PCP - General 03/28/24 Austin Goff MD [address] [place] [address] Primary Design Consultant Cardiovascular Disease 03/27/24 Anthony Maldonado PA-C [address] [place] [address] Advanced Practitioner Cardiac Electrophysiology 06/08/24 documented as of this encounter
--- OUTSIDE RECORDS SUMMARY | 2024-07-23 19:25 | XMS_ITS | Continuity of Care Document ---
Author Organization [facility] Address [address] [place] [address]- Care Team Providers Care Associate Professor Of Library Science Name Role Phone Not on Staff, PCP Primary Care Physician Unavail able [place] [facility] [place]14[place] - 07/14/[address] [address] Encounter Type: Triage Allergies, Adverse Reactions, Alerts Substance Criticality Severity Reaction Reaction Severity Status amoxicillin Active potassium phosphate-sodium phosphate Active Venofer allergic reaction Ac tive Glutens Active Neutra-Phos Active Trileptal Active Medications Ativan 1 mg [...] Maintenance, 09/06/23 3:20:00 PM EDT, XL Tablet, [facility]/pharmacy #[id number], Partial fill upon patient [...] Start Date: 06/13/24 Status: Ordered Repeat number: .10/19 oral tablet 1 tablet, By Mouth, Daily, [...] Refills, Maintenance, 10/25/23 4:36:00 PM EDT, Tablet, [facility]/pharmacy #[id number], Partial fill upon patient [...] Maintenance, 11/18/23 8:42:00 PM EDT, DIS Tablet, [facility]/pharmacy #[id number], Partial fill upon patient [...] Care team information Care Team Personnel Name: Johanna Uriostegui RN Position: [facility] RN Member Role: Primary Care Nurse Name: Madalyn Henao RN Position: [facility] Onco RN Member Role: Primary Care Nurse Name: Omi Dietz RN Position: [facility] RN Member Role: Primary Care Nurse Name: Not on Staff, PCP Position: [facility] Physician (General Medicine) Member Role: PCP Name: Russell Fuentes MD Position: [facility] Renal MD Member Role: Lifetime Consulting Physician Address: [address] [place] [address] [facility] [address] Telecom: Name: Valentin Villalpando RN Position: [facility] RN Member Role: Primary Care Nurse Care Team Related Persons Name: ROBERT, MICHEAL Name: SAHRA RASCON Name: IRVIN RASCON Name: SAHRA ODEN Insurance Providers Guarantor name: DESIRAE RASCON Health Plan Information #: 1 Payer: [employer] INDEMNITY Member Number: NA Policy Number: NA Group Number: [id number]
--- OUTSIDE RECORDS SUMMARY | 2024-07-23 19:25 | XMS_ITS | Data Portability ---
Author Organization [place] - [facility], [facility] Address [address] [facility] [address] [place] [address] Care Team Providers Care Charge Entry Specialist Name Role Phone MARGE YIP Primary Care Provider Assessment Encounter Date Assessment Date Assessment LastModified by Organization Details LastModified Time 04/30/2019 04/30/2019 DATA: The patient's surgical photos were reviewed, which demonstrate the labral tear. No appreciable arthritis. We do not have the operative note or prior radiological history. IMPRESSION: Her diagnosis is chronic instability. She does not have any systemic signs of instability, although she has dislocated her right patella, which is certainly a sign of being somewhat ligamentously lax throughout her body. PLAN: We discussed a new MRI, as well as a CT scan to evaluate bony architecture. I do believe she may require a Latarjet surgery to afford stability to the glenohumeral joint. We are going to set her up for this, and we will see the patient back for further review. [email or web address] Not available 05/01/2019 20:45:58 Plan of Treatment Reminders Order Date Submit Date Provider Last Modified By Organization Details Last Modified Time Details Appointments None recorded. Lab None recorded. Referral None recorded. Procedures None recorded. Surgeries None recorded. Imaging MRI, shoulder, w/o contrast - Please call patient to schedule @ Please fax report to and mail CD of images to Yariel Fitzpatrick PA-C [address] [facility], [address] (Diagnostic Imaging), [address] [place] [address], [address], 9 08:02:27 CT, shoulder, w/o contrast - Please call patient to schedule @ Please fax report to [phone] and mail CD of images to Yariel Fitzpatrick PA-C [address] [place] [address], [address] 2018 019 [facility] (Diagnostic Imaging), [address] [place], [address], 9 16:14:57 Medication Orders None recorded. Patient TargetsNo targets recorded. Patient InstructionsNo instructions recorded. Reason for Referral None Reported. Results Created Date Observation Date Name Description Value Unit Range Abnormal Flag Note LastModifiedBy Organization Detail LastModifiedTime 04/30/20 arthr oscop y shoul sharonda photo s* No observ ation record ed. [email or web address] Not Available 2018 12:24:18 04/30/20 19 04/30/2019 xr shoul sharonda left 4 views minim um Fin al Report EXAM#: [id number] 3 PROCED URE: DXR 0140 XR SHOULD ER LEFT 4 VIEWS MINIMU M Apr 30 2019 11:16A M CLINIC AL INDICA TION: pain in left should er The ashley l head is in good relati onship to the glenoi d. No fractu re or disloc ation is identi fied. NUMBER OF IMAGES : 4 Report ed by : THERESA ZHAO M.D. On: Apr 30 2019 1:23P Signed by: THERESA ZHAO M.D. On: Apr 30 2019 1:23P [email or web address] [facility] [address] [facility], [place], [address], 04/30/2019 14:38:09 05/24/19 20 05/11/2019 CT, shoul sharonda, w/o contr ast No observ ation record ed. [email or web address] Not Available 2019 09:23:36 Result Notes None recorded. Problems No Known Problems Procedures Surgical History Date Name Laterality Status Provider Name and Address Organization Details Recorded Time 05/03/20 18 Orthopaedic Surgery completed Yadira Falk [facility] 04/30/2019 11:12:02 11/21/19 17 Orthopaedic Surgery completed Yadira Falk [facility] 04/30/2019 11:11:47 12/22/19 14 Orthopaedic Surgery completed Yadira Falk [facility] 04/30/2019 11:11:36 Imaging Results Imaging Date Name Status LastModified by Organiz ation Details LastModified Time 04/30/2019 arthroscopy shoulder photos* completed [email or web address] Information not available 04/30/2019 12:24:18 04/30/2019 xr shoulder left 4 views minimum completed [email or web address] [facility] [address] [place], [address], 04/30/2019 14:38:09 05/11/2019 CT, shoulder, w/o contrast [facility] [place] not available 05/24/2019 09:23:36 Procedure Notes None recorded. Medical Equipment None Reported. Allergies Allergen ID Allergen Name Allergen Category Reaction Reaction Severity Criticality Documentation Date Start Date Code Code System Note Provider Name and Address Organization Details Recorded Time 446269 amoxicill in medicatio n Not available Not available Not available 04/30/2019 723 RxNorm Yadira frederick [facility] 9 11:10:25 598936 wheat gluten extract food Not available Not available Not available 04/30/2019 93554 81 RxNorm Yadira frederick [facility] 9 11:10:31 208079 mold extract environme nt Not available Not available Not available 04/30/2019 79560 8 RxNorm Yadira frederick [facility] 9 11:10:35 837906 house dust allergeni c extract environme nt,medica tion Not available Not available Not available 04/30/2019 69748 9 RxNorm Yadira frederick [facility] 9 11:10:41 Medications Name Sig Start Date Stop Date Status Note LastModified by Organization Details LastModified Time methocarbamol 750 mg tabs 04/30 completed Not Available Not Available Not Available meloxicam 15 mg tabs 04/30 completed Not Available Not Available Not Available hydromorphone hcl 2 mg tabs 04/30 completed Not Available Not Available Not Available isibloom tab active Not Available Not Available Not Available ibuprofen 600 mg tabs 04/30 completed Not Available Not Available Not Available my way 1.5 mg tabs active Not Available Not Available Not Available meloxicam 15 mg tablet TK 1 T PO QD WF 04/30 completed Not Available Not Available Not Available hydromorphone 2 mg tablet TK 1 OR 2 TS PO Q 3 OR 4 H PRN P 04/30 completed Not Available Not Available Not Available methocarbamol 750 mg tablet TK 1 T PO Q 6 H PRN 04/30 completed Not Available Not Available Not Available ibuprofen 600 mg tablet TAKE 1 TABLET BY MOUTH EVERY 6 HOURS NEEDED 04/30 completed Not Available Not Available Not Available Vitals Date Recorded Body height Body mass index (BMI) Percentile per age and sex Body mass index (BMI) Body weight Provider Name and Address Organization Details Last Updated DateTime 04/30/2019 160.02 cm 63 % 23 kg/m2 73913.01 g Yadira Falk MA [facility] 04/30/2019 11:10:17 Social History Question Answer Notes LastModified by Organizat ion Details LastModified Time Tobacco Smoking Status Never Smoker Yadira frederick MA [facility] 04/30/2019 11:10:55 What Is Your Level Of Alcohol Consumption? None [email or web address] Information not available 04/30/2019 What Is Your Level Of Caffeine Consumption? Moderate Information not available 04/30/2019 Do You Or Have You Ever Used E-cigarettes Or Vape? Never Used Electronic Cigarettes [email or web address] Information not available 04/30/2019 What Is Your Occupation? Student Information not available 04/30/2019 Have You Had Cortisone? No [email or web address] Information not available 04/30/2019 Do You Or Have You Ever Used Smokeless Tobacco? Never Used Smokeless Tobacco Information not available 04/30/2019 What Types Of Sporting Activities Do You Participate In? Dance Team At School [email or web address] Information not available 04/30/2019 Sex: Unknown Functional Status Question Answer Note LastModified by Organization D etails LastModified Time What is your exercise level? Heavy [email or web address] Information not available 04/30/2019 Mental Status None recorded. Family History Relationship Description Onset Age of this Age Resolved Age Notes LastModified by Organization Details LastModified Time Father No current problems or disability [email or web address] Not available 04/30 11:32:38 Mother No current problems or disability [email or web address] Not available 04/30 11:32:38 Medical History Condition Response Blood Clots / Phlebitis N Heart Problems N HIV or AIDS N Depression or Anxiety Y High Blood Pressure N Irregular Heartbeat N MRSA N Any Other Significant Medical Issues N Emphysema / Chronic Bronchitis N Reaction to General/Local Anesthesia N Weight Gain / Loss N Hepatitis / Jaundice N Kidney / Bladder Infections N Diabetes N Bleeding Disorder N Hearing Loss N Angina, Heart Failure or Attack N Night Sweats N Seizures / Epilepsy N Osteoarthritis / Rheumatoid arthritis / Other Y Cancer N Stroke N Chemical Dependency / Alcoholism N Ulcer / Stomach Bleeding / Indigestion N Visual Loss or Glaucoma N Thyroid Disorder N Psoriasis / Skin Rash N Heart Disease N Pulmonary Embolism N Asthma / Shortness of Breath / Sleep Automobile Accessories Installer ea (please specify) N Gynecological HistoryNo gynecological history recorded. Obstetrics History GPAL:G 0 P 0 0 0 0 Past Encounters Encounter ID Performer Location Encounter Start Date Encounter Closed Date Diagnosis/Indication Diagnosis SNOMED-CT Code Diagnosis ICD10 Code Diagnosis Note [id number] EDIL TAMEZ [address] [address] 04/30/2019 10:46:25 04/30/2019 12:24:53 Shoulder pain 78145260 M25.512 Health Concerns Section Related Observation LastModified by Organization Detai ls LastModified Time None Recorded Concern Status LastModified by Organization Details LastModified Time None Recorded Advance Directives Directive None Recorded Payers Encounter Date Sequence Insurance Name Policy Number Policy Palomo Covered Member ID Palomo Member ID Guarantor Name 04/30/2019 1 [employer] (POS) Himanshu Mendez [id number] Himanshu Mendez Notes Date Note Type Note Provider Name and Address Organization Details Recorded Time 04/30/2019 text/html HX: The patient is a 18-year-old female who presents today for evaluation of her left shoulder. She has an extensive history with the left shoulder. She states that around the age of [age], in the year 2017 she started to develop shoulder discomfort and soreness. She is an avid gymnast, in fact, participates in competitions. There was one competition towards the end of 2016 where her shoulder dislocated. She saw a physician upon her return to the [place] area, where she lives in [place]. This was Dr. Bell who ordered an MRI and recommended surgery. The surgery was done at [facility] in [place] and consisted of placement of three anchors for a labral repair. The patient states that the surgery went well, and she participated in skilled physical therapy, but then subsequently re-dislocated. She states that now she experiences basic dislocations just with sleeping. Throughout this experience she has had nerve symptoms, including neuro symptoms radiating down her axilla, down to her elbow; certainly, when she puts her arm overhead or when she uses the extremity. When she started to experience re-dislocation she was brought in for revision surgery. The patient explained that she had a capsular shift at the time, again arthroscopic. Despite this she continues to report instability, which is her diagnosis, lack of confidence within the shoulder and these neurological symptoms from the instability. EDIL TAMEZ [address] [place] [address], [id number], [facility] - [facility] 05/03/2019 17:27:06 OBGyn Episode No OBEpisode recorded.
--- OUTSIDE RECORDS SUMMARY | 2024-07-23 19:25 | XMS_ITS | Encounter Summary ---
Author Organization [facility] Address [address] [place], [place] [address] Care Team Providers Care Warranty Coordinator Name Role Phone Austin Goff MD Unavailable [phone] Luci Parra APRN Primary Care Provider [phone] Anthony Maldonado PA-C Unavailable [phone] Encounter Details Date Type Department Care Team (Late st Contact Info) Description 07/04/2024 Telephone [facility] [address] [place] [address] [place] [phone] Ran Mckenzie MD [address] [place] [address] Social History Tobacco Use Types Packs/Day Years Used Date Smoking Tobacco: Never Smokeless Tobacco: Never Alcohol Use Standard Drinks/Week Comments Not Currently 0 (1 standard drink = 0.6 oz pur e alcohol) [facility] Utilities Answer Date Recorded In the past 12 months has [employer] electric, gas, oil, or water company threatened [...] any time in the past 12 m [facility], were you homeless or living in a chcf (including now)? No 05/27/2024 Sex and Gender Information Value Date Recorded Sex Assigned at Female 03/15/2024 6:18 PM EDT Gender Identity Female 03/15/2024 6:18 PM EDT Sexual Orientation Choose not to disclose 2023 6:18 PM EDT documented as of this encounter Miscellaneous Notes * Telephone Encounter - Jeanneiva Fowler - 07/04/2024 12:18 PM EST Cecile patient's refractory repairer OLVIN looking to speak with Dr. Jonah about patient's TPN. She can be reached at [phone] documented in this encounter Plan of Treatment Upcoming Encounters Date Type Department Care Team (Late st Contact Info) Description 09/20/2024 3:00 PM EDT Office Visit [facility] [address] [facility] [place] [address] [place] [address] Ran Mckenzie MD [address] [place] [address] documented as of this encounter Visit Diagnoses Not on filedocumented in this encounter Care Teams Warranty Coordinator Relationship Specialty Start Date End Date Luci Parra APRN [address] [place] [address] PCP - General 03/28/24 Austin Goff MD [address] [place] [address] Primary Work Order Detailer Cardiovascular Disease 03/27/24 Anthony Maldonado PA-C [address] [place] [address] Advanced Practitioner Cardiac Electrophysiology 06/08/24 documented as of this encounter
--- OUTSIDE RECORDS SUMMARY | 2024-07-23 19:25 | XMS_ITS | Encounter Summary ---
Author Organization [facility] Address [address] [place], [place] [address] Care Team Providers Care Oral And Maxillofacial Pathologist Name Role Phone Austin Goff MD Unavailable Luci Parra APRN Primary Care Provider [phone] Anthony Maldonado PA-C Unavailable [phone] Encounter Details Date Type Department Care Team (Late st Contact Info) Description 06/19/2024 Scanned Document [facility] [address] [place] [phone] Ran Mckenzie MD [address] [place] [address] Social History Tobacco Use Types Packs/Day Years Used Date Smoking Tobacco: Never Smokeless Tobacco: Never Alcohol Use Standard Drinks/Week Comments Not Currently 0 (1 standard drink = 0.6 oz pur e alcohol) [facility] Utilities Answer Date Recorded In the past 12 months has [employer] electric, gas, oil, or water company threatened [...] any time in the past 12 m [facility], were you homeless or living in a [...] Description 09/20/2024 3:00 PM EDT Office Visit [facility] [address] [place] [place] [address] Ran Mckenzie MD [address] [place] [address] documented as of this encounter Visit Diagnoses Not on filedocumented in this encounter Care Teams Oral And Maxillofacial Pathologist Relationship Specialty Start Date End Date Luci Parra APRN [address] [place] [address] PCP - General 03/28/24 Austin Goff MD [address] [place] [address] Primary Member Services Representative Cardiovascular Disease 03/27/24 Anthony Maldonado PA-C [address] [place] [address] Advanced Practitioner Cardiac Electrophysiology 06/08/24 documented as of this encounter
--- OUTSIDE RECORDS SUMMARY | 2024-07-23 19:25 | XMS_ITS | Encounter Summary ---
Author Organization [facility] Address [address] [place] [address] Care Team Providers Care Sheeting Puller Name Role Phone Austin Goff MD Unavailable Luci Parra APRN Primary Care Provider [phone] Anthony Maldonado PA-C Unavailable [phone] Reason for Visit * Auth/Cert Specialty Diagnoses / Procedures Referred By Contarlin t Referred To Contact Diagnoses Nausea and vomiting, unspecified vomiting type Ongoing NV and currently has DHT Procedures MT INSERT CECOSTOMY/OTHER COLONIC TUBE PERCUTANEOUS IR Insert G/J Tube Incl Imaging Referral ID Status Reason Start Date Expiration Date Visits Re quested Visits Authorized [id number] 1 1 Encounter Details Date Type Department Care Team (Late st Contact Info) Description 07/03/2024 11:00 AM EST - 07/03/2024 12:30 PM EST Surgery [facility] Radiology [address] [place] [phone] Anisha Almodovar MD [address] [place], [place] [phone] IR Insert G/J Tube Incl Imaging Social History Tobacco Use Types Packs/Day Years Used Date Smoking Tobacco: Never Smokeless Tobacco: Never Alcohol Use Standard Drinks/Week Comments Not Currently 0 (1 standard drink = 0.6 oz pur e alcohol) [facility] Utilities Answer Date Recorded In the [...] any time in the past 12 m [facility], were you homeless or living [...] Sign Reading Time Taken Comments Blood Pressure 127/86 07/03/2024 12:30 PM EST Pulse 100 07/03/2024 12:30 PM EST Temperature 35.8 ??C (96.4 ??F) 07/03/2024 12:[address] Respiratory Rate 18 07/03/2024 12:30 PM EST Oxygen Saturation 99% 07/03/2024 12:30 PM EST Inhaled Oxygen Concentration - - Weight - - Height - - Body Mass Index - - documented in this encounter Discharge Instructions * Discharge Instructions* Francheska Rock RN - 07/03/2024 11:53 AM EST In the event of an emergency, please call 911 and proceed to the nearest Hospital. For routine questions, please call Radiology Recovery: [phone] (Mon-Fri 7a-7p). After hours, call: [phone] (Resident distribution center associate/nights & weekends) For any questions regarding your procedure, please call your primary care physician or the orderingphysician. * Attachments The following attachments cannot be sent through Care Everywhere. * General Anesthesia Adult Care After ([place]) * Gastrostomy Tube Replacement Care After ([place]) documented in this encounter Medications at Time [...] she is active with [facility] in [place] for tube feedings and supplies, not active with any other HC agency, declined the need for additional services. Return referral and update placed to [facility]. Recommendation: Home with [facility] Lauren Pal 07/03/2024 11:00 AM documented in this encounter Plan of Treatment Upcoming Encounters Date Type Department Care Team (Late st Contact Info) Description 09/20/2024 3:00 PM EDT Office Visit [address] [place] [address] [place] [address] Ran Mckenzie MD [address] [place] [address] documented as of this encounter Procedures Procedure [...] 1:03 PM EST Percutaneous placement of 16 [place] Ze[place]ander gastrojejunostomy tube. Plan: Patient stable for discharge [...] to gravity drainage. Gastrojejunostomy tube placed: 16 [place]ander CASSANDRA gastrojejunostomy tube. Internal catheter securement: Balloon [...] EST PROCEDURE: Gastrojejunostomy tube placement Referring provider: VIELKA SANTANA Procedural Personnel Attending physician(s): Anisha Almodovar MD Resident physician(s): None Advanced practice provider(s): None Pre-procedure diagnosis: Gastroparesis Post-procedure diagnosis: Same Indication: Nutritional support in setting of poor gastric emptying Additional clinical history: None Complications: No immediate complications. Procedure Note Anisha Almodovar MD - 07/05/2024 PROCEDURE: Gastrojejunostomy tube placement Referring provider: VIELKA SANTANA Procedural Personnel Attending physician(s): Anisha Almodovar MD Resident physician(s): None Advanced practice provider(s): None Pre-procedure diagnosis: Gastroparesis Post-procedure diagnosis: Same Indication: Nutritional support in setting of poor gastric emptying Additional clinical history: None Complications: No immediate complications. IMPRESSION: Percutaneous placement of 16 [place] Zealander gastrojejunostomy tube. Plan: Patient stable for discharge [...] to gravity drainage. Gastrojejunostomy tube placed: 16 [place]ander CASSANDRA gastrojejunostomy tube. Internal catheter securement: Balloon [...] units/500 mL NS flush for catheter PREMIX Continuous PRN, Starting on Tue07/03/24 at 1140, Intra-Procedure (IR) New Bag 07/03/2024 11:40 AM EST 500 mL iohexol (OMNIPAQUE) 300 mg/mL injection As needed, Starting on Tue07/03/24 at 1140, Intra-Procedure (IR) Given 07/03/2024 11:40 AM EST 20 mL lidocaine (XYLOCAINE) 1 % injection As needed, Starting on Tue07/03/24 at 1140, Intra-Procedure (IR) Given 07/03/2024 11:40 AM EST 10 mL scopolamine (TRANSDERM-SCOP) 1 patch 1 patch, Transdermal, [...] reassessment documented in this encounter Care Teams Sheeting Puller Relationship Specialty Start Date End Date Luci Parra APRN [address] [place] [address] PCP - General 03/28/24 Austin Goff MD [address] [place] [address] Primary Weigher And Mixer Cardiovascular Disease 03/27/24 Anthony Maldonado PA-C [address] [place] [address] Advanced Practitioner Cardiac Electrophysiology 06/08/24 documented as of this encounter
--- OUTSIDE RECORDS SUMMARY | 2024-07-23 19:26 | XMS_ITS ---
Author Name [facility] Organization Unknown Results Test Name/Text Value Interpretation Date Range Source POC Glucose 107mg/dL Above high normal [id number] 65 - 99 [facility] Magnesium SerPl-mCnc 2.1mg/dL Normal [id number] 1.6 - 2.7 [facility] POC Glucose 121mg/dL Above high normal 842341569844 65 - 99 [facility] POC Glucose 80mg/dL Normal [id number] 65 - 99 [facility] POC Glucose 85mg/dL Normal [id number] 65 - 99 [facility] AST SerPl-cCnc 16U/L Normal [id number] 10 - 50 HH CCT ALP SerPl-cCnc 35U/L Normal [id number] 32 - 122 HH CCT ALT SerPl-cCnc 13U/L Normal [id number] 10 - 50 HH CCT Globulin Ser Calc-mCnc 2.7g/dL Normal [id number] 1.5 - 3.9 [facility] Bilirub Direct SerPl-mCnc 0.1mg/dL Normal [id number] 0 - 0.2 [facility] Albumin/Glob SerPl 1.2Ratio Normal [id number] 1 - 3 [facility] Albumin SerPl-mCnc 3.3g/dL Below low normal [id number] 3 .5 - 5 [facility] Prot SerPl-mCnc 6g/dL Below low normal [id number] 6.3 - 8.3 [facility] Bilirub SerPl-mCnc 0.2mg/dL Below low normal [id number] 0 .2 - 1 [facility] Magnesium SerPl-mCnc 2.2mg/dL Normal [id number] 1.6 - 2.7 [facility] Trigl SerPl-mCnc 149mg/dL Normal [id number] - 150 [facility] Prealb SerPl-mCnc 19mg/dL Below low normal [id number] 20 - 40 [facility] Transferrin SerPl-mCnc 304mg/dL Normal [id number] 200 - 360 [facility] POC Glucose 121mg/dL Above high normal [id number] 65 - 99 [facility] POC Glucose 129mg/dL Above high normal [id number] 65 - 99 [facility] POC Glucose 101mg/dL Above high normal [id number] 65 - 99 [facility] POC Glucose 103mg/dL Above high normal [id number] 65 - 99 [facility] Phosphate SerPl-mCnc 2.7mg/dL Normal [id number] 2.7 - 4.5 [facility] Calcium SerPl-mCnc 9.6mg/dL Normal [id number] 8.7 - 10 .5 [facility] BUN SerPl-mCnc 11mg/dL Normal [id number] 8 - 21 HH CCT Creat SerPl-mCnc 0.8mg/dL Normal [id number] 0.4 - 1.1 [facility] GFR/BSA.pred SerPlBld JEF-IVB-TcLIbo 90 Normal [id number] 59 - [facility] Chloride SerPl-sCnc 106mmol/L Normal [id number] 98 - 10 7 [facility] BUN/Creat SerPl 14Ratio Normal [id number] 10 - 25 H [facility] CO2 SerPl-sCnc 25mmol/L Normal [id number] 22 - 33 HH CCT Anion Gap Bld-sCnc 8 Normal [id number] 7 - 17 [facility] Potassium SerPl-sCnc 4.3mmol/L Normal [id number] 3.4 - 5.3 [facility] Glucose SerPl-mCnc 96mg/dL Normal [id number] 65 - 99 [facility] Sodium SerPl-sCnc 139mmol/L Normal [id number] 136 - 145 [facility] POC Glucose 112mg/dL Above high normal [id number] 65 - 99 [facility] Magnesium SerPl-mCnc 2.3mg/dL Normal [id number] 1.6 - 2.7 [facility] POC Glucose 99mg/dL Normal [id number] 65 - 99 [facility] POC Glucose 97mg/dL Normal [id number] 65 - 99 [facility] FLUAV RNA Nph Ql Non-probe PCR Normal [id number] [facility] HPIV2 RNA Nph Ql Non-probe PCR Normal [id number] [facility] B pert tox prom reg Nph Ql Non-probe PCR Normal [id number] [facility] HCoV 229E RNA Nph Ql Non-probe PCR Normal [id number] [facility] HCoV OC43 RNA Nph Ql Non-probe PCR Normal [id number] [facility] FLUBV RNA Nph Ql Non-probe PCR Normal [id number] [facility] HPIV1 RNA Nph Ql Non-probe PCR Normal [id number] [facility] 2019-nCOV RNA Normal [id number] [facility] CT M pneumo DNA Nph Ql Non-probe PCR Normal [id number] [facility] Bordetella parapertussis Normal [id number] [facility] hMPV RNA Nph Ql Non-probe PCR Normal [id number] [facility] HCoV HKU1 RNA Nph Ql Non-probe PCR Normal [id number] [facility] HAdV DNA Nph Ql Non-probe PCR Normal [id number] [facility] C pneum DNA Nph Ql Non-probe PCR Normal [id number] [facility] RV+EV RNA Nph Ql Non-probe PCR Normal [id number] [facility] HPIV4 RNA Nph Ql Non-probe PCR Normal [id number] [facility] HCoV NL63 RNA Nph Ql Non-probe PCR Normal [id number] [facility] HPIV3 RNA Nph Ql Non-probe PCR Normal [id number] [facility] RSV RNA Nph Ql Non-probe PCR Normal [id number] [facility] POC Glucose 122mg/dL Above high normal [id number] 65 - 99 [facility] Magnesium SerPl-mCnc 2mg/dL Normal [id number] 1.6 - 2.7 [facility] POC Glucose 118mg/dL Above high normal [id number] 65 - 99 CCT POC Glucose 87mg/dL Normal [id number] 65 - 99 [facility] Anion Gap Bld-sCnc 9 Normal [id number] 7 - 17 [facility] Calcium SerPl-mCnc 9.7mg/dL Normal [id number] 8.7 - 10 .5 [facility] BUN SerPl-mCnc 9mg/dL Normal [id number] 8 - 21 HH CCT Creat SerPl-mCnc 0.7mg/dL Normal [id number] 0.4 - 1.1 [facility]CT GFR/BSA.pred SerPlBld CMW-NIV-JsTFdp 90 Normal [id number] 59 - [facility]CT Chloride SerPl-sCnc 107mmol/L Normal [id number] 98 - 10 7 [facility]CT BUN/Creat SerPl 13Ratio Normal [id number] 10 - 25 H HCCT CO2 SerPl-sCnc 21mmol/L Below low normal [id number] 22 - 33 [facility] Potassium SerPl-sCnc 4.4mmol/L Normal [id number] 3.4 - 5.3 [facility] Glucose SerPl-mCnc 116mg/dL Above high normal [id number] 65 - 99 [facility]CT Sodium SerPl-sCnc 137mmol/L Normal [id number] 136 - 145 [facility]CT Phosphate SerPl-mCnc 2.4mg/dL Below low normal [id number] 2.7 - 4.5 [facility]CT Magnesium SerPl-mCnc 2.2mg/dL Normal [id number] 1.6 - 2.7 [facility]HCCT POC Glucose 112mg/dL Above high normal [id number] 65 - 99 [facility] POC Glucose 96mg/dL Normal [id number] 65 - 99 [facility]CT Magnesium SerPl-mCnc 2.3mg/dL Normal [id number] 1.6 - 2.7 [facility]HCCT POC Glucose 104mg/dL Above high normal [id number] 65 - 99 [facility]CT POC Glucose 109mg/dL Above high normal [id number] 65 - 99 HHCCT POC Glucose 126mg/dL Above high normal [id number] 65 - 99 [facility]CT Phosphate SerPl-mCnc 2.8mg/dL Normal [id number] 2.7 - 4.5 HHCCT POC Glucose 87mg/dL Normal [id number] 65 - 99 [facility]CT Calcium SerPl-mCnc 9.2mg/dL Normal [id number] 8.7 - 10 .5 [facility]CT BUN SerPl-mCnc 9mg/dL Normal [id number] 8 - 21 HH CCT Creat SerPl-mCnc 0.8mg/dL Normal [id number] 0.4 - 1.1 H[facility]CT GFR/BSA.pred SerPlBld PFB-HRA-RuHRfh 90 Normal [id number] 59 - HHCCT Chloride SerPl-sCnc 108mmol/L Above high normal [id number] 98 - 107 H[facility]CT BUN/Creat SerPl 11Ratio Normal [id number] 10 - 25 H HCCT CO2 SerPl-sCnc 23mmol/L Normal [id number] 22 - 33 HH CCT Anion Gap Bld-sCnc 7 Normal [id number] 7 - 17 [facility]CT Potassium SerPl-sCnc 4mmol/L Normal [id number] 3.4 - 5.3 [facility]CT Glucose SerPl-mCnc 92mg/dL Normal [id number] 65 - 99 H[facility]CT Sodium SerPl-sCnc 138mmol/L Normal [id number] 136 - 145 [facility]CT Magnesium SerPl-mCnc 2.3mg/dL Normal [id number] 1.6 - 2.7 HHCCT POC Glucose 108mg/dL Above high normal [id number] 65 - 99 H[facility]CT POC Glucose 107mg/dL Above high normal [id number] 65 - 99 HHCCT POC Glucose 117mg/dL Above high normal [id number] 65 - 99 HHCCT Trigl SerPl-mCnc 94mg/dL Normal [id number] - 150 H[facility]CT Magnesium SerPl-mCnc 1.9mg/dL Normal [id number] 1.6 - 2.7 HHCCT Phosphate SerPl-mCnc 2.9mg/dL Normal [id number] 2.7 - 4.5 H[facility]CT Calcium SerPl-mCnc 8mg/dL Below low normal [id number] 8 .7 - 10.5 [facility]HCCT BUN SerPl-mCnc 9mg/dL Normal [id number] 8 - 21 HH CCT Creat SerPl-mCnc 0.7mg/dL Normal [id number] 0.4 - 1.1 HHCCT GFR/BSA.pred SerPlBld NWE-QGJ-RiGAoz 90 Normal [id number] 59 - HHCCT Chloride SerPl-sCnc 110mmol/L Above high normal [id number] 98 - 107 HHCCT BUN/Creat SerPl 13Ratio Normal [id number] 10 - 25 H HCCT CO2 SerPl-sCnc 22mmol/L Normal [id number] 22 - 33 HH CCT Anion Gap Bld-sCnc 8 Normal [id number] 7 - 17 HHCCT Potassium SerPl-sCnc 3.7mmol/L Normal [id number] 3.4 - 5.3 HHCCT Glucose SerPl-mCnc 92mg/dL Normal [id number] 65 - 99 H[facility]CT Sodium SerPl-sCnc 140mmol/L Normal [id number] 136 - 145 HHCCT POC Glucose 89mg/dL Normal [id number] 65 - 99 HHCCT POC Glucose 87mg/dL Normal [id number] 65 - 99 HHCCT Phosphate SerPl-mCnc 3.6mg/dL Normal [id number] 2.7 - 4.5 HHCCT Trigl SerPl-mCnc 137mg/dL Normal [id number] - 150 H[facility]CT Magnesium SerPl-mCnc 2.2mg/dL Normal [id number] 1.6 - 2.7 HHCCT Calcium SerPl-mCnc 9.6mg/dL Normal [id number] 8.7 - 10 .5 HHCCT BUN SerPl-mCnc 10mg/dL Normal [id number] 8 - 21 HH CCT Creat SerPl-mCnc 0.9mg/dL Normal [id number] 0.4 - 1.1 HHCCT GFR/BSA.pred SerPlBld OTF-QUB-WgRJdg 90 Normal [id number] 59 - HHCCT Chloride SerPl-sCnc 106mmol/L Normal [id number] 98 - 10 7 HHCCT BUN/Creat SerPl 11Ratio Normal [id number] 10 - 25 H HCCT CO2 SerPl-sCnc 24mmol/L Normal [id number] 22 - 33 HH CCT Anion Gap Bld-sCnc 8 Normal [id number] 7 - 17 HHCCT Potassium SerPl-sCnc 4.2mmol/L Normal [id number] 3.4 - 5.3 HHCCT Glucose SerPl-mCnc 95mg/dL Normal [id number] 65 - 99 HHCCT Sodium SerPl-sCnc 138mmol/L Normal [id number] 136 - 145 HHCCT POC Glucose 93mg/dL Normal [id number] 65 - 99 HHCCT POC Glucose 99mg/dL Normal [id number] 65 - 99 HHCCT POC Glucose 118mg/dL Above high normal [id number] 65 - 99 HHCCT Trigl SerPl-mCnc 152mg/dL Above high normal [id number] - 150 [facility]CT Calcium SerPl-mCnc 10.4mg/dL Normal [id number] 8.7 - 10 .5 H[facility]CT BUN SerPl-mCnc 6mg/dL Below low normal [id number] 8 - 2 1 HHCCT Creat SerPl-mCnc 0.9mg/dL Normal [id number] 0.4 - 1.1 HHCCT GFR/BSA.pred SerPlBld BQF-WAP-JgFAtd 90 Normal [id number] 59 - HHCCT Chloride SerPl-sCnc 103mmol/L Normal [id number] 98 - 10 7 HHCCT BUN/Creat SerPl 7Ratio Below low normal [id number] 10 - 25 H[facility]CT CO2 SerPl-sCnc 23mmol/L Normal [id number] 22 - 33 HH CCT Anion Gap Bld-sCnc 10 Normal [id number] 7 - 17 H[facility]CT Potassium SerPl-sCnc 3.9mmol/L Normal [id number] 3.4 - 5.3 HHCCT Glucose SerPl-mCnc 115mg/dL Above high normal [id number] 65 - 99 HHCCT Sodium SerPl-sCnc 136mmol/L Normal [id number] 136 - 145 HHCCT RBC num Bld Auto 4.42Mil/uL Normal [id number] 4 - 5.4 HHCCT RDW RBC Auto-Rto 15.8% Above high normal [id number] 11 .5 - 14.5 HHCCT PMV Bld Auto 10.1fL Normal [id number] 7.5 - 12.[address] MCH RBC Qn Auto 27.8pg Normal [id number] 26 - 34 H HCCT WBC num Bld Auto 6.7Thou/uL Normal [id number] 4 - 11 [facility] Platelet num Bld Auto 307Thou/uL Normal [id number] 150 - 450 H[facility]CT MCHC RBC Auto-mCnc 32.9g/dL Normal [id number] 30 - 36 HHCCT Hct VFr Bld Auto 37.4% Normal [id number] 35 - 47 HHCCT MCV RBC Auto 85fL Normal [id number] 80 - 100 HHCC T Hgb Bld-mCnc 12.3g/dL Normal [id number] 11.7 - 15.7 HH CCT Phosphate SerPl-mCnc 2.9mg/dL Normal [id number] 2.7 - 4.5 HHCCT Magnesium SerPl-mCnc 2mg/dL Normal [id number] 1.6 - 2.7 HHCCT Calcium SerPl-mCnc 10.1mg/dL Normal [id number] 8.7 - 10 .5 HHCCT BUN SerPl-mCnc 6mg/dL Below low normal [id number] 8 - 2 1 HHCCT Creat SerPl-mCnc 0.8mg/dL Normal [id number] 0.4 - 1.1 HHCCT GFR/BSA.pred SerPlBld MVB-GWR-RtTNwf 90 Normal [id number] 59 - HHCCT Chloride SerPl-sCnc 106mmol/L Normal [id number] 98 - 10 7 HHCCT BUN/Creat SerPl 8Ratio Below low normal [id number] 10 - 25 HHCCT CO2 SerPl-sCnc 21mmol/L Below low normal [id number] 22 - 33 HHCCT Anion Gap Bld-sCnc 12 Normal [id number] 7 - 17 HHCCT Potassium SerPl-sCnc 4.2mmol/L Normal [id number] 3.4 - 5.3 HHCCT Glucose SerPl-mCnc 114mg/dL Above high normal [id number] 65 - 99 HHCCT Sodium SerPl-sCnc 139mmol/L Normal [id number] 136 - 145 HHCCT Phosphate SerPl-mCnc 2.2mg/dL Below low normal [id number] 2.7 - 4.5 HHCCT Magnesium SerPl-mCnc 2.2mg/dL Normal [id number] 1.6 - 2.7 HHCCT Calcium SerPl-mCnc 9.3mg/dL Normal [id number] 8.7 - 10 .5 HHCCT BUN SerPl-mCnc 7mg/dL Below low normal [id number] 8 - 2 1 HHCCT Creat SerPl-mCnc 0.8mg/dL Normal [id number] 0.4 - 1.1 HHCCT GFR/BSA.pred SerPlBld CKA-NFC-HlBNem 90 Normal [id number] 59 - HHCCT Chloride SerPl-sCnc 109mmol/L Above high normal [id number] 98 - 107 HHCCT BUN/Creat SerPl 9Ratio Below low normal [id number] 10 - 25 HHCCT CO2 SerPl-sCnc 21mmol/L Below low normal [id number] 22 - 33 HHCCT Anion Gap Bld-sCnc 10 Normal [id number] 7 - 17 HHCCT Potassium SerPl-sCnc 4mmol/L Normal [id number] 3.4 - 5.3 HHCCT Glucose SerPl-mCnc 117mg/dL Above high normal [id number] 65 - 99 HHCCT Sodium SerPl-sCnc 140mmol/L Normal [id number] 136 - 145 HHCCT AST SerPl-cCnc 15U/L Normal [id number] 10 - 50 HH CCT ALP SerPl-cCnc 29U/L Below low normal [id number] 32 - 122 HHCCT ALT SerPl-cCnc 12U/L Normal [id number] 10 - 50 HH CCT Globulin Ser Calc-mCnc 2.5g/dL Normal [id number] 1.5 - 3.9 HHCCT Bilirub Direct SerPl-mCnc 0.2mg/dL Normal [id number] 0 - 0.2 HHCCT Albumin/Glob SerPl 1.3Ratio Normal [id number] 1 - 3 HHCCT Albumin SerPl-mCnc 3.2g/dL Below low normal [id number] 3 .5 - 5 HHCCT Prot SerPl-mCnc 5.7g/dL Below low normal [id number] 6.3 - 8.3 HHCCT Bilirub SerPl-mCnc 0.4mg/dL Normal [id number] 0.2 - 1 HHCCT RBC num Bld Auto 3.96Mil/uL Below low normal [id number] 4 - 5.4 HHCCT RDW RBC Auto-Rto 15.7% Above high normal [id number] 11 .5 - 14.5 HHCCT PMV Bld Auto 10.1fL Normal [id number] 7.5 - 12.[address] MCH RBC Qn Auto 28pg Normal [id number] 26 - 34 H HCCT WBC num Bld Auto 6.7Thou/uL Normal [id number] 4 - 11 H[facility]CT Platelet num Bld Auto 321Thou/uL Normal [id number] 150 - 450 HHCCT MCHC RBC Auto-mCnc 32.6g/dL Normal [id number] 30 - 36 HHCCT Hct VFr Bld Auto 34% Below low normal [id number] 35 - 47 HHCCT MCV RBC Auto 86fL Normal [id number] 80 - 100 HHCC T Hgb Bld-mCnc 11.1g/dL Below low normal [id number] 11.7 - 15.7 HHCCT Calcium SerPl-mCnc 9.6mg/dL Normal [id number] 8.7 - 10 .5 HHCCT BUN SerPl-mCnc 9mg/dL Normal [id number] 8 - 21 HH CCT Creat SerPl-mCnc 0.9mg/dL Normal [id number] 0.4 - 1.1 HHCCT GFR/BSA.pred SerPlBld XSJ-HYF-QmEYhf 90 Normal [id number] 59 - HHCCT Chloride SerPl-sCnc 105mmol/L Normal [id number] 98 - 10 7 HHCCT BUN/Creat SerPl 10Ratio Normal [id number] 10 - 25 H HCCT CO2 SerPl-sCnc 19mmol/L Below low normal [id number] 22 - 33 HHCCT Anion Gap Bld-sCnc 13 Normal [id number] 7 - 17 HHCCT Potassium SerPl-sCnc 3.9mmol/L Normal [id number] 3.4 - 5.3 HHCCT Glucose SerPl-mCnc 73mg/dL Normal [id number] 65 - 99 HHCCT Sodium SerPl-sCnc 137mmol/L Normal [id number] 136 - 145 HHCCT Magnesium SerPl-mCnc 2.1mg/dL Normal [id number] 1.6 - 2.7 HHCCT Phosphate SerPl-mCnc 2.2mg/dL Below low normal [id number] 2.7 - 4.5 HHCCT B-HCG Preg SerPl Ql Normal [id number] - HHCCT Neutrophils num Bld Auto 4.46Thou/uL Normal [id number] 2 - 7.5 HHCCT Monocytes num Bld Auto 0.75Thou/uL Normal 0.2 - 1.5 HHCCT Eosinophil num Bld Auto 0.21Thou/uL Normal 0 - 0.7 HHCCT WBC num Bld Auto 8.3Thou/uL Normal [id number] 4 - 11 HHCCT MCHC RBC Auto-mCnc 32.7g/dL Normal 30 - 36 HHCCT Monocytes/leuk NFr Bld Auto 9.1% Normal [id number] HHCCT Hct VFr Bld Auto 39.8% Normal 35 - 47 HHCCT RBC num Bld Auto 4.72Mil/uL Normal 4 - 5.4 HHCCT RDW RBC Auto-Rto 15.4% Above high normal [id number] 11 .5 - 14.5 HHCCT PMV Bld Auto 9.6fL Normal [id number] 7.5 - 12.[address] Eosinophil/leuk NFr Bld Auto 2.5% Normal [id number] HHCCT MCH RBC Qn Auto 27.5pg Normal [id number] 26 - 34 H HCCT Basophils/leuk NFr Bld Auto 0.5% Normal HHCCT Basophils num Bld Auto 0.04Thou/uL Normal 0 - 0.2 HHCCT Platelet num Bld Auto 389Thou/uL Normal [id number] 150 - 450 H[facility]CT Neutrophils/leuk NFr Bld Auto 54% Normal [id number] HHCCT MCV RBC Auto 84fL Normal [id number] 80 - 100 HH T Lymphocytes/leuk NFr Bld Auto 33.8% Normal [id number] [facility] Lymphocytes num Bld Auto 2.79Thou/uL Normal 1.5 - 4.5 HHCCT Imm Granulocytes/leuk NFr Bld Auto 0.1% Normal HHCCT Hgb Bld-mCnc 13g/dL Normal 11.7 - 15.7 HH CCT Imm Granulocytes num Bld Auto 0.01Thou/uL Normal 0 - 0.1 HHCCT Phosphate SerPl-mCnc 3mg/dL Normal 2.7 - 4.5 HHCCT AST SerPl-cCnc 20U/L Normal 10 - 50 HH CCT ALP SerPl-cCnc 34U/L Normal 32 - 122 HH CCT ALT SerPl-cCnc 19U/L Normal 10 - 50 HH CCT Globulin Ser Calc-mCnc 3g/dL Normal 1.5 - 3.9 HHCCT Bilirub Direct SerPl-mCnc 0.2mg/dL Normal 0 - 0.2 HHCCT Albumin/Glob SerPl 1.4Ratio Normal 1 - 3 HHCCT Albumin SerPl-mCnc 4.1g/dL Normal 3.5 - 5 HHCCT Prot SerPl-mCnc 7.1g/dL Normal 6.3 - 8.3 H HCCT Bilirub SerPl-mCnc 0.2mg/dL Normal 0.2 - 1 HHCCT Lipase SerPl-cCnc 26U/L Normal 13 - 60 HHCCT Calcium SerPl-mCnc 10.6mg/dL Above high normal 8.7 - 10.5 HHCCT BUN SerPl-mCnc 8mg/dL Normal 8 - 21 HH CCT Creat SerPl-mCnc 0.9mg/dL Normal 0.4 - 1.1 HHCCT GFR/BSA.pred SerPlBld ZPQ-UBB-OzLPfu 90 Normal 59 - HHCCT Chloride SerPl-sCnc 104mmol/L Normal 98 - 10 7 HHCCT BUN/Creat SerPl 9Ratio Below low normal 10 - 25 HHCCT CO2 SerPl-sCnc 24mmol/L Normal 22 - 33 HH CCT Anion Gap Bld-sCnc 10 Normal 7 - 17 HHCCT Potassium SerPl-sCnc 3.7mmol/L Normal 3.4 - 5.3 HHCCT Glucose SerPl-mCnc 81mg/dL Normal 65 - 99 HHCCT Sodium SerPl-sCnc 138mmol/L Normal 136 - 145 HHCCT Magnesium SerPl-mCnc 2.1mg/dL Normal 1.6 - 2.7 HHCCT Calcium SerPl-mCnc 9.6mg/dL Normal 8.7 - 10 .5 HHCCT BUN SerPl-mCnc 11mg/dL Normal 8 - 21 HH CCT Creat SerPl-mCnc 0.9mg/dL Normal 0.4 - 1.1 HHCCT GFR/BSA.pred SerPlBld CZB-SCD-KkHUla 90 Normal 59 - HHCCT Chloride SerPl-sCnc 104mmol/L Normal 98 - 10 7 HHCCT BUN/Creat SerPl 12Ratio Normal 10 - 25 H HCCT CO2 SerPl-sCnc 24mmol/L Normal 22 - 33 HH CCT Anion Gap Bld-sCnc 7 Normal 7 - 17 HHCCT Potassium SerPl-sCnc 3.9mmol/L Normal 3.4 - 5.3 HHCCT Glucose SerPl-mCnc 91mg/dL Normal 65 - 99 HHCCT Sodium SerPl-sCnc 135mmol/L Below low normal 13 6 - 145 HHCCT Phosphate SerPl-mCnc 2.8mg/dL Normal 2.7 - 4.5 HHCCT Magnesium SerPl-mCnc 2.1mg/dL Normal 1.6 - 2.7 HHCCT Phosphate SerPl-mCnc 3.2mg/dL Normal 2.7 - 4.5 HHCCT Magnesium SerPl-mCnc 2mg/dL Normal [id number] 1.6 - 2.7 HHCCT Calcium SerPl-mCnc 9.9mg/dL Normal [id number] 8.7 - 10 .5 HHCCT BUN SerPl-mCnc 11mg/dL Normal [id number] 8 - 21 HH CCT Creat SerPl-mCnc 1mg/dL Normal [id number] 0.4 - 1.1 HHCCT GFR/BSA.pred SerPlBld HUK-SBO-ChDKjy 80 Normal [id number] 59 - HHCCT Chloride SerPl-sCnc 105mmol/L Normal [id number] 98 - 10 7 HHCCT BUN/Creat SerPl 11Ratio Normal [id number] 10 - 25 H HCCT CO2 SerPl-sCnc 25mmol/L Normal [id number] 22 - 33 HH CCT Anion Gap Bld-sCnc 7 Normal [id number] 7 - 17 HHCCT Potassium SerPl-sCnc 4mmol/L Normal [id number] 3.4 - 5.3 HHCCT Glucose SerPl-mCnc 110mg/dL Above high normal [id number] 65 - 99 HHCCT Sodium SerPl-sCnc 137mmol/L Normal [id number] 136 - 145 HHCCT RBC num Bld Auto 4.37Mil/uL Normal [id number] 4 - 5.4 HHCCT RDW RBC Auto-Rto 14.4% Normal [id number] 11.5 - 14. 5 HHCCT PMV Bld Auto 10.1fL Normal [id number] 7.5 - 12.[address] MCH RBC Qn Auto 28.1pg Normal [id number] 26 - 34 H HCCT WBC num Bld Auto 7.8Thou/uL Normal [id number] 4 - 11 HHCCT Platelet num Bld Auto 323Thou/uL Normal [id number] 150 - 450 HHCCT MCHC RBC Auto-mCnc 33.1g/dL Normal [id number] 30 - 36 HHCCT Hct VFr Bld Auto 37.2% Normal [id number] 35 - 47 HHCCT MCV RBC Auto 85fL Normal [id number] 80 - 100 HHCC T Hgb Bld-mCnc 12.3g/dL Normal 11.7 - 15.7 HH CCT Magnesium SerPl-mCnc 2mg/dL Normal 1.6 - 2.7 HHCCT Calcium SerPl-mCnc 9.8mg/dL Normal 8.7 - 10 .5 HHCCT BUN SerPl-mCnc 12mg/dL Normal 8 - 21 HH CCT Creat SerPl-mCnc 1mg/dL Normal 0.4 - 1.1 HHCCT GFR/BSA.pred SerPlBld PWN-BRQ-BuEIaj 80 Normal 59 - HHCCT Chloride SerPl-sCnc 104mmol/L Normal 98 - 10 7 HHCCT BUN/Creat SerPl 12Ratio Normal 10 - 25 H HCCT CO2 SerPl-sCnc 25mmol/L Normal 22 - 33 HH CCT Anion Gap Bld-sCnc 9 Normal 7 - 17 HHCCT Potassium SerPl-sCnc 4.1mmol/L Normal [id number] 3.4 - 5.3 HHCCT Glucose SerPl-mCnc 100mg/dL Above high normal 65 - 99 HHCCT Sodium SerPl-sCnc 138mmol/L Normal [id number] 136 - 145 HHCCT Phosphate SerPl-mCnc 3.3mg/dL Normal [id number] 2.7 - 4.5 HHCCT Calcium SerPl-mCnc 9.3mg/dL Normal 8.7 - 10 .5 HHCCT BUN SerPl-mCnc 13mg/dL Normal 8 - 21 HH CCT Creat SerPl-mCnc 1.1mg/dL Normal 0.4 - 1.1 HHCCT GFR/BSA.pred SerPlBld ZIB-ZMH-IaPNqw 72 Normal 59 - HHCCT Chloride SerPl-sCnc 106mmol/L Normal 98 - 10 7 HHCCT BUN/Creat SerPl 12Ratio Normal 10 - 25 H HCCT CO2 SerPl-sCnc 24mmol/L Normal 22 - 33 HH CCT Anion Gap Bld-sCnc 10 Normal 7 - 17 HHCCT Potassium SerPl-sCnc 4.1mmol/L Normal 3.4 - 5.3 HHCCT Glucose SerPl-mCnc 110mg/dL Above high normal 65 - 99 HHCCT Sodium SerPl-sCnc 140mmol/L Normal 136 - 145 HHCCT Phosphate SerPl-mCnc 3.7mg/dL Normal 2.7 - 4.5 HHCCT AST SerPl-cCnc 17U/L Normal 10 - 50 HH CCT ALT SerPl-cCnc 10U/L Normal 10 - 50 HH CCT Creat SerPl-mCnc 1.1mg/dL Normal 0.4 - 1.1 HHCCT Globulin Ser Calc-mCnc 2.4g/dL Normal 1.5 - 3.9 H[facility]CT CO2 SerPl-sCnc 27mmol/L Normal 22 - 33 HH CCT Albumin/Glob SerPl 1.5Ratio Normal 1 - 3 HHCCT Anion Gap Bld-sCnc 8 Normal 7 - 17 H[facility]CT Potassium SerPl-sCnc 4.1mmol/L Normal 3.4 - 5.3 HHCCT Bilirub SerPl-mCnc 0.3mg/dL Normal 0.2 - 1 HHCCT Calcium SerPl-mCnc 9.8mg/dL Normal 8.7 - 10 .5 HHCCT BUN SerPl-mCnc 14mg/dL Normal 8 - 21 HH CCT ALP SerPl-cCnc 31U/L Below low normal [id number] 32 - 122 H[facility]CT GFR/BSA.pred SerPlBld [id number] 72 Normal 59 - HHCCT Chloride SerPl-sCnc 104mmol/L Normal [id number] 98 - 10 7 H[facility]CT BUN/Creat SerPl 13Ratio Normal [id number] 10 - 25 H HCCT Albumin SerPl-mCnc 3.7g/dL Normal [id number] 3.5 - 5 HHCCT Prot SerPl-mCnc 6.1g/dL Below low normal [id number] 6.3 - 8.3 H[facility]CT Glucose SerPl-mCnc 113mg/dL Above high normal [id number] 65 - 99 H[facility]CT Sodium SerPl-sCnc 139mmol/L Normal [id number] 136 - 145 HHCCT Phosphate SerPl-mCnc 2.4mg/dL Below low normal [id number] 2.7 - 4.5 HHCCT Magnesium SerPl-mCnc 2.2mg/dL Normal [id number] 1.6 - 2.7 HHCCT RBC num Bld Auto 4.18Mil/uL Normal [id number] 4 - 5.4 H[facility]CT RDW RBC Auto-Rto 14.8% Above high normal [id number] 11 .5 - 14.5 HHCCT PMV Bld Auto 9.9fL Normal [id number] 7.5 - 12.[address] MCH RBC Qn Auto 27.8pg Normal [id number] 26 - 34 H HCCT WBC num Bld Auto 8.7Thou/uL Normal [id number] 4 - 11 [facility] Platelet num Bld Auto 338Thou/uL Normal [id number] 150 - 450 H[facility]CT MCHC RBC Auto-mCnc 32.4g/dL Normal [id number] 30 - 36 H[facility]CT Hct VFr Bld Auto 35.8% Normal [id number] 35 - 47 HHCCT MCV RBC Auto 86fL Normal [id number] 80 - 100 HHCC T Hgb Bld-mCnc 11.6g/dL Below low normal [id number] 11.7 - 15.7 HHCCT Calcium SerPl-mCnc 10.2mg/dL Normal [id number] 8.7 - 10 .5 HHCCT BUN SerPl-mCnc 11mg/dL Normal [id number] 8 - 21 HH CCT Creat SerPl-mCnc 0.9mg/dL Normal [id number] 0.4 - 1.1 HHCCT GFR/BSA.pred SerPlBld [id number]-SbYPtx 90 Normal [id number] 59 - HHCCT Chloride SerPl-sCnc 104mmol/L Normal [id number] 98 - 10 7 H[facility]CT BUN/Creat SerPl 12Ratio Normal [id number] 10 - 25 H HCCT CO2 SerPl-sCnc 24mmol/L Normal [id number] 22 - 33 HH CCT Anion Gap Bld-sCnc 8 Normal [id number] 7 - 17 H[facility]CT Potassium SerPl-sCnc 4.3mmol/L Normal [id number] 3.4 - 5.3 HHCCT Glucose SerPl-mCnc 110mg/dL Above high normal [id number] 65 - 99 HHCCT Sodium SerPl-sCnc 136mmol/L Normal [id number] 136 - 145 HHCCT Phosphate SerPl-mCnc 2.1mg/dL Below low normal [id number] 2.7 - 4.5 HHCCT CK SerPl-cCnc 151U/L Normal [id number] 24 - [address] Magnesium SerPl-mCnc 2.3mg/dL Normal [id number] 1.6 - 2.7 HHCCT AST SerPl-cCnc 22U/L Normal [id number] 10 - 50 HH CCT ALT SerPl-cCnc 11U/L Normal [id number] 10 - 50 HH CCT Creat SerPl-mCnc 0.9mg/dL Normal [id number] 0.4 - 1.1 HHCCT Globulin Ser Calc-mCnc 3.1g/dL Normal [id number] 1.5 - 3.9 HHCCT CO2 SerPl-sCnc 23mmol/L Normal [id number] 22 - 33 HH CCT Albumin/Glob SerPl 1.4Ratio Normal [id number] 1 - 3 HHCCT Anion Gap Bld-sCnc 10 Normal [id number] 7 - 17 HHCCT Potassium SerPl-sCnc 4.6mmol/L Normal [id number] 3.4 - 5.3 HHCCT Bilirub SerPl-mCnc 0.5mg/dL Normal 0.2 - 1 HHCCT Calcium SerPl-mCnc 10.7mg/dL Above high normal 8.7 - 10.5 HHCCT BUN SerPl-mCnc 8mg/dL Normal 8 - 21 HH CCT ALP SerPl-cCnc 39U/L Normal 32 - 122 HH CCT GFR/BSA.pred SerPlBld [id number]-[id number]-[id number] 90 Normal 59 - HHCCT Chloride SerPl-sCnc 101mmol/L Normal 98 - 10 7 HHCCT BUN/Creat SerPl 9Ratio Below low normal 10 - 25 HHCCT Albumin SerPl-mCnc 4.3g/dL Normal 3.5 - 5 HHCCT Prot SerPl-mCnc 7.4g/dL Normal 6.3 - 8.3 H HCCT Glucose SerPl-mCnc 153mg/dL Above high normal 65 - 99 HHCCT Sodium SerPl-sCnc 134mmol/L Below low normal 13 6 - 145 HHCCT Phosphate SerPl-mCnc 4.1mg/dL Normal 2.7 - 4.5 HHCCT AST SerPl-cCnc 21U/L Normal 10 - 50 HH CCT ALT SerPl-cCnc 11U/L Normal 10 - 50 HH CCT Creat SerPl-mCnc 0.9mg/dL Normal 0.4 - 1.1 HHCCT Globulin Ser Calc-mCnc 2.6g/dL Normal 1.5 - 3.9 HHCCT CO2 SerPl-sCnc 16mmol/L Below low normal 22 - 33 [facility] Albumin/Glob SerPl 1.5Ratio Normal 1 - 3 [facility] Anion Gap Bld-sCnc 14 Normal 7 - 17 [facility] Potassium SerPl-sCnc 4.4mmol/L Normal 3.4 - 5.3 H[facility]CT Bilirub SerPl-mCnc 0.8mg/dL Normal 0.2 - 1 [facility] Calcium SerPl-mCnc 9.6mg/dL Normal 8.7 - 10 .5 [facility]CT BUN SerPl-mCnc 10mg/dL Normal 8 - 21 HH CCT ALP SerPl-cCnc 35U/L Normal 32 - 122 HH CCT GFR/BSA.pred SerPlBld HFH-HRG-EzNHcj 90 Normal 59 - HHCCT Chloride SerPl-sCnc 107mmol/L Normal 98 - 10 7 H[facility]CT BUN/Creat SerPl 11Ratio Normal 10 - 25 H [facility]CT Albumin SerPl-mCnc 3.9g/dL Normal 3.5 - 5 H[facility] Prot SerPl-mCnc 6.5g/dL Normal 6.3 - 8.3 H HCCT Glucose SerPl-mCnc 52mg/dL Below low normal 6 5 - 99 [facility]CT Sodium SerPl-sCnc 137mmol/L Normal 136 - 145 H[facility]CT Magnesium SerPl-mCnc 2mg/dL Normal 1.6 - 2.7 H[facility]CT Phosphate SerPl-mCnc 3.3mg/dL Normal 2.7 - 4.5 H[facility]CT RBC num Bld Auto 4.43Mil/uL Normal 4 - 5.4 [facility]CT RDW RBC Auto-Rto 14.5% Normal 11.5 - 14. 5 [facility] PMV Bld Auto 10.6fL Normal 7.5 - 12.[address] MCH RBC Qn Auto 27.8pg Normal 26 - 34 H HCCT WBC num Bld Auto 6.6Thou/uL Normal 4 - 11 [facility] Platelet num Bld Auto 293Thou/uL Normal 150 - 450 H[facility]CT MCHC RBC Auto-mCnc 32.6g/dL Normal 30 - 36 [facility] Hct VFr Bld Auto 37.7% Normal 35 - 47 H[facility]CT MCV RBC Auto 85fL Normal 80 - 100 HHCC T Hgb Bld-mCnc 12.3g/dL Normal 11.7 - 15.7 HH CCT RBC num/area UrnS HPF 1perhpf Normal 0 - 4 [facility]CT WBC num/area UrnS HPF 1perhpf Normal 0 - 4 H[facility]CT Squamous num/area UrnS HPF 2PERHPF Normal HHCCT Ketones Ur Strip-mCnc Abnormal - HHCCT Prot Ur Strip-mCnc Abnormal - H[facility]CT Leukocyte esterase Ur Ql Strip Normal - H[facility]CT Color Ur Normal HHCCT pH Ur Strip 5 Normal 5 - 8 H[facility]CT Sp Gr Ur Strip 1.019 Normal 1.003 - 1.03 H[facility]CT Nitrite Ur Ql Strip Normal - [facility]CT Glucose Ur Strip-mCnc 0mg/dL Normal 0 - 99 H[facility]CT Hgb Ur Ql Strip Normal [id number] - H HCCT Bilirub Ur Strip-mCnc Normal - H[facility]CT Clarity Ur Normal HHCCT Phosphate SerPl-mCnc 1.9mg/dL Below low normal 2.7 - 4.5 H[facility]CT Lipase SerPl-cCnc 17U/L Normal 13 - 60 H[facility]CT AST SerPl-cCnc 19U/L Normal 10 - 50 HH CCT ALT SerPl-cCnc 14U/L Normal 10 - 50 HH CCT Creat SerPl-mCnc 1mg/dL Normal 0.4 - 1.1 [facility]CT Globulin Ser Calc-mCnc 2.9g/dL Normal 1.5 - 3.9 H[facility]CT CO2 SerPl-sCnc 19mmol/L Below low normal 22 - 33 [facility]CT Albumin/Glob SerPl 1.5Ratio Normal 1 - 3 H[facility]CT Anion Gap Bld-sCnc 14 Normal 7 - 17 H[facility]CT Potassium SerPl-sCnc 4mmol/L Normal 3.4 - 5.3 HHCCT Bilirub SerPl-mCnc 0.6mg/dL Normal 0.2 - 1 H[facility]CT Calcium SerPl-mCnc 10.6mg/dL Above high normal 8.7 - 10.5 H[facility]CT BUN SerPl-mCnc 6mg/dL Below low normal 8 - 2 1 HHCCT ALP SerPl-cCnc 37U/L Normal 32 - 122 HH CCT GFR/BSA.pred SerPlBld FIL-CWL-UgMKdy 80 Normal 59 - HHCCT Chloride SerPl-sCnc 107mmol/L Normal 98 - 10 7 H[facility]CT BUN/Creat SerPl 6Ratio Below low normal 10 - 25 H[facility]CT Albumin SerPl-mCnc 4.3g/dL Normal 3.5 - 5 H[facility]CT Prot SerPl-mCnc 7.2g/dL Normal 6.3 - 8.3 H HCCT Glucose SerPl-mCnc 85mg/dL Normal 65 - 99 H[facility]CT Sodium SerPl-sCnc 140mmol/L Normal 136 - 145 H[facility]CT Magnesium SerPl-mCnc 1.9mg/dL Normal 1.6 - 2.7 HHCCT Neutrophils num Bld Auto 5.28Thou/uL Normal 2 - 7.5 HHCCT Monocytes num Bld Auto 0.55Thou/uL Normal 0.2 - 1.5 HHCCT Eosinophil num Bld Auto 0.06Thou/uL Normal 0 - 0.7 HHCCT WBC num Bld Auto 8.6Thou/uL Normal [id number] 4 - 11 [facility]CT MCHC RBC Auto-mCnc 32.7g/dL Normal [id number] 30 - 36 [facility]CT Monocytes/leuk NFr Bld Auto 6.4% Normal 811088534088 HHCCT Hct VFr Bld Auto 40.1% Normal [id number] 35 - 47 [facility]CT RBC num Bld Auto 4.71Mil/uL Normal [id number] 4 - 5.4 HHCCT RDW RBC Auto-Rto 14.6% Above high normal [id number] 11 .5 - 14.5 HHCCT PMV Bld Auto 9.6fL Normal [id number] 7.5 - 12.[address] Eosinophil/leuk NFr Bld Auto 0.7% Normal [id number] HHCCT MCH RBC Qn Auto 27.8pg Normal [id number] 26 - 34 H HCCT Basophils/leuk NFr Bld Auto 0.5% Normal [id number] HHCCT Basophils num Bld Auto 0.04Thou/uL Normal [id number] 0 - 0.2 [facility]CT Platelet num Bld Auto 384Thou/uL Normal [id number] 150 - 450 H[facility]CT Neutrophils/leuk NFr Bld Auto 61.7% Normal [id number] HHCCT MCV RBC Auto 85fL Normal [id number] 80 - 100 HH T Lymphocytes/leuk NFr Bld Auto 30.6% Normal [id number] H[facility]CT Lymphocytes num Bld Auto 2.62Thou/uL Normal [id number] 1.5 - 4.5 HHCCT Imm Granulocytes/leuk NFr Bld Auto 0.1% Normal [id number] HHCCT Hgb Bld-mCnc 13.1g/dL Normal [id number] 11.7 - 15.7 HH CCT Imm Granulocytes num Bld Auto 0.01Thou/uL Normal [id number] 0 - 0.1 H[facility]CT Phosphate SerPl-mCnc 2.7mg/dL Normal [id number] 2.7 - 4.5 HHCCT Magnesium SerPl-mCnc 2mg/dL Normal [id number] 1.6 - 2.7 HHCCT Calcium SerPl-mCnc 10.5mg/dL Normal [id number] 8.7 - 10 .5 HHCCT BUN SerPl-mCnc 10mg/dL Normal [id number] 8 - 21 HH CCT Creat SerPl-mCnc 0.9mg/dL Normal [id number] 0.4 - 1.1 HHCCT GFR/BSA.pred SerPlBld APG-ISB-FgEHdp 90 Normal [id number] 59 - HHCCT Chloride SerPl-sCnc 107mmol/L Normal [id number] 98 - 10 7 HHCCT BUN/Creat SerPl 11Ratio Normal [id number] 10 - 25 H HCCT CO2 SerPl-sCnc 21mmol/L Below low normal [id number] 22 - 33 H[facility]CT Anion Gap Bld-sCnc 10 Normal [id number] 7 - 17 H[facility]CT Potassium SerPl-sCnc 4.2mmol/L Normal [id number] 3.4 - 5.3 HHCCT Glucose SerPl-mCnc 95mg/dL Normal [id number] 65 - 99 H[facility]CT Sodium SerPl-sCnc 138mmol/L Normal [id number] 136 - 145 HHCCT Neutrophils num Bld Auto 4.67Thou/uL Normal [id number] 2 - 7.5 HHCCT Monocytes num Bld Auto 0.65Thou/uL Normal [id number] 0.2 - 1.5 HHCCT Eosinophil num Bld Auto 0.05Thou/uL Normal [id number] 0 - 0.7 HHCCT WBC num Bld Auto 7.8Thou/uL Normal [id number] 4 - 11 HHCCT MCHC RBC Auto-mCnc 32.8g/dL Normal [id number] 30 - 36 H[facility]CT Monocytes/leuk NFr Bld Auto 8.4% Normal [id number] HHCCT Hct VFr Bld Auto 39.9% Normal [id number] 35 - 47 HHCCT RBC num Bld Auto 4.67Mil/uL Normal [id number] 4 - 5.4 HHCCT RDW RBC Auto-Rto 13.2% Normal [id number] 11.5 - 14. 5 HHCCT PMV Bld Auto 9.7fL Normal [id number] 7.5 - 12.[address] Eosinophil/leuk NFr Bld Auto 0.6% Normal [id number] HHCCT MCH RBC Qn Auto 28.1pg Normal [id number] 26 - 34 H HCCT Basophils/leuk NFr Bld Auto 0.6% Normal [id number] HHCCT Basophils num Bld Auto 0.05Thou/uL Normal [id number] 0 - 0.2 H[facility]CT Platelet num Bld Auto 311Thou/uL Normal [id number] 150 - 450 H[facility]CT Neutrophils/leuk NFr Bld Auto 60.4% Normal 063982959711 HHCCT MCV RBC Auto 85fL Normal [id number] 80 - 100 HHCC T Lymphocytes/leuk NFr Bld Auto 29.9% Normal [id number] CCT Lymphocytes num Bld Auto 2.32Thou/uL Normal [id number] 1.5 - 4.5 HHCCT Imm Granulocytes/leuk NFr Bld Auto 0.1% Normal [id number] CCT Hgb Bld-mCnc 13.1g/dL Normal [id number] 11.7 - 15.7 HH CCT Imm Granulocytes num Bld Auto 0.01Thou/uL Normal [id number] 0 - 0.1 HHCCT TSH SerPl DL<=0.005 mIU/L-aCnc 2.23mIU/L Normal 065580125904 0.27 - 4.2 H[facility]CT Opiates Ur Ql Scn>300 ng/mL Normal 120416476897 - [facility] BZE Ur Ql Normal 475645909767 - [facility] Cannabinoids Ur Ql Scn>50 ng/mL Normal 613236306343 - [facility] fentaNYL+Norfentany l Ur Ql Scn Normal 077424029178 - [facility] Amphetamines Ur Ql Normal 875981440965 - [facility] Benzodiaz Ur Ql Scn>200 ng/mL Abnormal 867429695887 - [facility] PCP Ur Ql Scn>25 ng/mL Normal 364961521360 - [facility] RBC num/area UrnS HPF 5perhpf Above high normal [id number] 0 - 4 H[facility]CT WBC num/area UrnS HPF 1perhpf Normal [id number] 0 - 4 HHCCT Ketones Ur Strip-mCnc Abnormal 660280319432 - HHCCT Prot Ur Strip-mCnc Abnormal 089904006764 - HHCCT Leukocyte esterase Ur Ql Strip Normal 809334278942 - HHCCT Color Ur Normal 053071536717 HHCCT pH Ur Strip 6 Normal 506532992449 5 - 8 HHCCT Sp Gr Ur Strip 1.021 Normal [id number] 1.003 - 1.03 HHCCT Nitrite Ur Ql Strip Normal 505987184085 - CCT Glucose Ur Strip-mCnc 0mg/dL Normal [id number] 0 - 99 HHCCT Hgb Ur Ql Strip Abnormal 509551789918 - H HCCT Bilirub Ur Strip-mCnc Normal [id number] - CCT Clarity Ur Normal [id number] [facility] URINE pH, POC 6.5 Normal [id number] 5 - [address] URINE Nitrite, POC Normal [id number] - [facility] URINE Leuk Esterase, POC Normal 236373064161 - [facility] URINE Clarity, POC Normal [id number] [facility] URINE Spec Maxwell, POC 1.029 Normal [id number] 1.003 - 1.03 HHCCT Urobilinogen, URINE POC 0.2mg/dL Normal [id number] 0.2 - 1 H[facility]CT URINE Bilirubin, POC Normal [id number] - CCT URINE Blood, POC Abnormal [id number] - CCT URINE Protein, POC 30mg/dL Abnormal [id number] - [facility] URINE Glucose, POC Normal [id number] - [facility] URINE Color, POC Normal [id number] [facility] URINE Ketones, POC 15mg/dL Abnormal 141194933712 - CCT Magnesium SerPl-mCnc 2mg/dL Normal [id number] 1.6 - 2.7 HHCCT Phosphate SerPl-mCnc 2.3mg/dL Below low normal [id number] 2.7 - 4.5 HHCCT AST SerPl-cCnc 23U/L Normal [id number] 10 - 50 HH CCT ALT SerPl-cCnc 18U/L Normal [id number] 10 - 50 HH CCT Creat SerPl-mCnc 0.9mg/dL Normal [id number] 0.4 - 1.1 HHCCT Globulin Ser Calc-mCnc 3.1g/dL Normal [id number] 1.5 - 3.9 HHCCT CO2 SerPl-sCnc 19mmol/L Below low normal [id number] 22 - 33 HHCCT Albumin/Glob SerPl 1.5Ratio Normal [id number] 1 - 3 HHCCT Anion Gap Bld-sCnc 14 Normal [id number] 7 - 17 HHCCT Potassium SerPl-sCnc 3.7mmol/L Normal [id number] 3.4 - 5.3 HHCCT Bilirub SerPl-mCnc 0.5mg/dL Normal [id number] 0.2 - 1 HHCCT Calcium SerPl-mCnc 11.1mg/dL Above high normal [id number] 8.7 - 10.5 HHCCT BUN SerPl-mCnc 9mg/dL Normal [id number] 8 - 21 HH CCT ALP SerPl-cCnc 39U/L Normal [id number] 32 - 122 HH CCT GFR/BSA.pred SerPlBld IQK-AYG-XmCRbl 90 Normal [id number] 59 - HHCCT Chloride SerPl-sCnc 105mmol/L Normal [id number] 98 - 10 7 HHCCT BUN/Creat SerPl 10Ratio Normal [id number] 10 - 25 H HCCT Albumin SerPl-mCnc 4.7g/dL Normal [id number] 3.5 - 5 HHCCT Prot SerPl-mCnc 7.8g/dL Normal [id number] 6.3 - 8.3 H HCCT Glucose SerPl-mCnc 107mg/dL Above high normal [id number] 65 - 99 HHCCT Sodium SerPl-sCnc 138mmol/L Normal [id number] 136 - 145 HHCCT Neutrophils num Bld Auto 6.46Thou/uL Normal [id number] 2 - 7.5 HHCCT Monocytes num Bld Auto 0.52Thou/uL Normal [id number] 0.2 - 1.5 HHCCT Eosinophil num Bld Auto 0.02Thou/uL Normal [id number] 0 - 0.7 HHCCT WBC num Bld Auto 9.1Thou/uL Normal [id number] 4 - 11 HHCCT MCHC RBC Auto-mCnc 33.3g/dL Normal [id number] 30 - 36 HHCCT Monocytes/leuk NFr Bld Auto 5.7% Normal [id number] HHCCT Hct VFr Bld Auto 46% Normal [id number] 35 - 47 HHCCT RBC num Bld Auto 5.43Mil/uL Above high normal [id number] 4 - 5.4 HHCCT RDW RBC Auto-Rto 13% Normal [id number] 11.5 - 14. 5 HHCCT PMV Bld Auto 9.9fL Normal [id number] 7.5 - 12.[address] Eosinophil/leuk NFr Bld Auto 0.2% Normal [id number] HHCCT MCH RBC Qn Auto 28.2pg Normal [id number] 26 - 34 H HCCT Basophils/leuk NFr Bld Auto 0.5% Normal [id number] HHCCT Basophils num Bld Auto 0.05Thou/uL Normal [id number] 0 - 0.2 HHCCT Platelet num Bld Auto 364Thou/uL Normal [id number] 150 - 450 HHCCT Neutrophils/leuk NFr Bld Auto 71% Normal [id number] HHCCT MCV RBC Auto 85fL Normal [id number] 80 - 100 HHCC T Lymphocytes/leuk NFr Bld Auto 22.2% Normal [id number] HHCCT Lymphocytes num Bld Auto 2.02Thou/uL Normal [id number] 1.5 - 4.5 HHCCT Imm Granulocytes/leuk NFr Bld Auto 0.4% Normal [id number] HHCCT Hgb Bld-mCnc 15.3g/dL Normal [id number] 11.7 - 15.7 HH CCT Imm Granulocytes num Bld Auto 0.04Thou/uL Normal [id number] 0 - 0.1 HHCCT Tryptase SerPl-mCnc 1.7mcg/L Normal [id number] - 11 HHCCT Magnesium SerPl-mCnc 2.2mg/dL Normal [id number] 1.6 - 2.7 HHCCT Calcium SerPl-mCnc 9.8mg/dL Normal [id number] 8.7 - 10 .5 HHCCT BUN SerPl-mCnc 11mg/dL Normal [id number] 8 - 21 HH CCT Creat SerPl-mCnc 1mg/dL Normal [id number] 0.4 - 1.1 HHCCT GFR/BSA.pred SerPlBld OOA-TPD-FgWKla 80 Normal [id number] 59 - HHCCT Chloride SerPl-sCnc 108mmol/L Above high normal [id number] 98 - 107 HHCCT BUN/Creat SerPl 11Ratio Normal [id number] 10 - 25 H HCCT CO2 SerPl-sCnc 22mmol/L Normal [id number] 22 - 33 HH CCT Anion Gap Bld-sCnc 10 Normal [id number] 7 - 17 HHCCT Potassium SerPl-sCnc 4.3mmol/L Normal [id number] 3.4 - 5.3 HHCCT Glucose SerPl-mCnc 91mg/dL Normal [id number] 65 - 99 HHCCT Sodium SerPl-sCnc 140mmol/L Normal [id number] 136 - 145 HHCCT Phosphate SerPl-mCnc 3mg/dL Normal [id number] 2.7 - 4.5 HHCCT Tryptase SerPl-mCnc 1.8mcg/L Normal [id number] - 11 HHCCT Calcium SerPl-mCnc 10.2mg/dL Normal [id number] 8.7 - 10 .5 HHCCT BUN SerPl-mCnc 14mg/dL Normal [id number] 8 - 21 HH CCT Creat SerPl-mCnc 1.2mg/dL Above high normal [id number] 0. 4 - 1.1 HHCCT GFR/BSA.pred SerPlBld HOE-EOM-VgEFrw 64 Normal [id number] 59 - HHCCT Chloride SerPl-sCnc 103mmol/L Normal [id number] 98 - 10 7 HHCCT BUN/Creat SerPl 12Ratio Normal [id number] 10 - 25 H HCCT CO2 SerPl-sCnc 25mmol/L Normal [id number] 22 - 33 HH CCT Anion Gap Bld-sCnc 9 Normal [id number] 7 - 17 HHCCT Potassium SerPl-sCnc 3.8mmol/L Normal [id number] 3.4 - 5.3 HHCCT Glucose SerPl-mCnc 77mg/dL Normal [id number] 65 - 99 HHCCT Sodium SerPl-sCnc 137mmol/L Normal [id number] 136 - 145 HHCCT Magnesium SerPl-mCnc 2.1mg/dL Normal [id number] 1.6 - 2.7 HHCCT Phosphate SerPl-mCnc 1.8mg/dL Below low normal [id number] 2.7 - 4.5 HHCCT ACTH Plas-mCnc 36pg/mL Normal [id number] 6 - 50 HH CCT RESULT Normal [id number] CCT [facility] Normal [id number] [facility] TEST NAME URINE HISTAMINE/PGD2 METABOLITES Normal [id number] HHCCT Calcium SerPl-mCnc 10.2mg/dL Normal [id number] 8.7 - 10 .5 HHCCT BUN SerPl-mCnc 13mg/dL Normal [id number] 8 - 21 HH CCT Creat SerPl-mCnc 1.2mg/dL Above high normal [id number] 0. 4 - 1.1 HHCCT GFR/BSA.pred SerPlBld EWZ-YNY-ZfYVtr 64 Normal [id number] 59 - HHCCT Chloride SerPl-sCnc 105mmol/L Normal [id number] 98 - 10 7 HHCCT BUN/Creat SerPl 11Ratio Normal [id number] 10 - 25 H HCCT CO2 SerPl-sCnc 25mmol/L Normal [id number] 22 - 33 HH CCT Anion Gap Bld-sCnc 9 Normal [id number] 7 - 17 HHCCT Potassium SerPl-sCnc 3.9mmol/L Normal [id number] 3.4 - 5.3 HHCCT Glucose SerPl-mCnc 93mg/dL Normal [id number] 65 - 99 HHCCT Sodium SerPl-sCnc 139mmol/L Normal [id number] 136 - 145 HHCCT Vit B12 SerPl-mCnc 388pg/mL Normal [id number] 243 - 89 4 HHCCT Magnesium SerPl-mCnc 2.4mg/dL Normal [id number] 1.6 - 2.7 HHCCT Phosphate SerPl-mCnc 3.3mg/dL Normal 2.7 - 4.5 HHCCT Calcium SerPl-mCnc 10.2mg/dL Normal 8.7 - 10 .5 HHCCT BUN SerPl-mCnc 12mg/dL Normal 8 - 21 HH CCT Creat SerPl-mCnc 1.1mg/dL Normal [id number] 0.4 - 1.1 HHCCT GFR/BSA.pred SerPlBld DRW-QDB-CyQSys 72 Normal 59 - HHCCT Chloride SerPl-sCnc 105mmol/L Normal [id number] 98 - 10 7 HHCCT BUN/Creat SerPl 11Ratio Normal 10 - 25 H HCCT CO2 SerPl-sCnc 24mmol/L Normal 22 - 33 HH CCT Anion Gap Bld-sCnc 10 Normal 7 - 17 HHCCT Potassium SerPl-sCnc 4.4mmol/L Normal [id number] 3.4 - 5.3 HHCCT Glucose SerPl-mCnc 90mg/dL Normal [id number] 65 - 99 HHCCT Sodium SerPl-sCnc 139mmol/L Normal [id number] 136 - 145 HHCCT RBC num Bld Auto 4.8Mil/uL Normal [id number] 4 - 5.4 HHCCT RDW RBC Auto-Rto 13% Normal [id number] 11.5 - 14. 5 HHCCT PMV Bld Auto 9.1fL Normal [id number] 7.5 - 12.[address] MCH RBC Qn Auto 29pg Normal [id number] 26 - 34 H HCCT WBC num Bld Auto 7.5Thou/uL Normal [id number] 4 - 11 HHCCT Platelet num Bld Auto 423Thou/uL Normal [id number] 150 - 450 HHCCT MCHC RBC Auto-mCnc 33.1g/dL Normal [id number] 30 - 36 HHCCT Hct VFr Bld Auto 42% Normal [id number] 35 - 47 HHCCT MCV RBC Auto 88fL Normal [id number] 80 - 100 HHCC T Hgb Bld-mCnc 13.9g/dL Normal 11.7 - 15.7 HH CCT Calcium SerPl-mCnc 9.9mg/dL Normal 8.7 - 10 .5 HHCCT BUN SerPl-mCnc 10mg/dL Normal 8 - 21 HH CCT Creat SerPl-mCnc 1.1mg/dL Normal 0.4 - 1.1 HHCCT GFR/BSA.pred SerPlBld VWQ-JIC-LdCOdg 72 Normal 59 - HHCCT Chloride SerPl-sCnc 102mmol/L Normal 98 - 10 7 HHCCT BUN/Creat SerPl 9Ratio Below low normal 10 - 25 HHCCT CO2 SerPl-sCnc 26mmol/L Normal 22 - 33 HH CCT Anion Gap Bld-sCnc 8 Normal 7 - 17 HHCCT Potassium SerPl-sCnc 4mmol/L Normal 3.4 - 5.3 HHCCT Glucose SerPl-mCnc 85mg/dL Normal 65 - 99 HHCCT Sodium SerPl-sCnc 136mmol/L Normal 136 - 145 HHCCT Magnesium SerPl-mCnc 2.4mg/dL Normal 1.6 - 2.7 HHCCT Phosphate SerPl-mCnc 3.4mg/dL Normal 2.7 - 4.5 HHCCT RBC num Bld Auto 4.82Mil/uL Normal [id number] 4 - 5.4 HHCCT RDW RBC Auto-Rto 13.1% Normal 11.5 - 14. 5 HHCCT PMV Bld Auto 9.3fL Normal 7.5 - 12.[address] MCH RBC Qn Auto 28.2pg Normal [id number] 26 - 34 H HCCT WBC num Bld Auto 6.7Thou/uL Normal 4 - 11 HHCCT Platelet num Bld Auto 442Thou/uL Normal [id number] 150 - 450 HHCCT MCHC RBC Auto-mCnc 32.4g/dL Normal 30 - 36 HHCCT Hct VFr Bld Auto 42% Normal 35 - 47 HHCCT MCV RBC Auto 87fL Normal 80 - 100 HHCC T Hgb Bld-mCnc 13.6g/dL Normal 11.7 - 15.7 HH CCT RBC num/area UrnS HPF 0perhpf Normal [id number] 0 - 4 HHCCT Ketones Ur Strip-mCnc Normal [id number] - HHCCT Prot Ur Strip-mCnc Normal [id number] - HHCCT WBC num/area UrnS HPF 1perhpf Normal [id number] 0 - 4 HHCCT Amorph Sed UrnS Ql Micro Normal [id number] HHCCT Leukocyte esterase Ur Ql Strip Normal [id number] - HHCCT Color Ur Normal [id number] HHCCT pH Ur Strip 8 Normal [id number] 5 - 8 HHCCT Sp Gr Ur Strip 1.012 Normal [id number] 1.003 - 1.03 HHCCT Nitrite Ur Ql Strip Normal [id number] - HHCCT Glucose Ur Strip-mCnc 0mg/dL Normal [id number] 0 - 99 HHCCT Hgb Ur Ql Strip Normal [id number] - H HCCT Bilirub Ur Strip-mCnc Normal [id number] - HHCCT Clarity Ur Normal [id number] HHCCT Calcium SerPl-mCnc 9.9mg/dL Normal [id number] 8.7 - 10 .5 HHCCT BUN SerPl-mCnc 7mg/dL Below low normal [id number] 8 - 2 1 HHCCT Creat SerPl-mCnc 1.1mg/dL Normal 0.4 - 1.1 HHCCT GFR/BSA.pred SerPlBld ZJK-XMW-CtRMdc 72 Normal [id number] 59 - HHCCT Chloride SerPl-sCnc 107mmol/L Normal 98 - 10 7 HHCCT BUN/Creat SerPl 6Ratio Below low normal [id number] 10 - 25 HHCCT CO2 SerPl-sCnc 26mmol/L Normal [id number] 22 - 33 HH CCT Anion Gap Bld-sCnc 8 Normal [id number] 7 - 17 HHCCT Potassium SerPl-sCnc 4.2mmol/L Normal [id number] 3.4 - 5.3 HHCCT Glucose SerPl-mCnc 73mg/dL Normal [id number] 65 - 99 HHCCT Sodium SerPl-sCnc 141mmol/L Normal [id number] 136 - 145 HHCCT Magnesium SerPl-mCnc 2.3mg/dL Normal [id number] 1.6 - 2.7 HHCCT Phosphate SerPl-mCnc 3.4mg/dL Normal [id number] 2.7 - 4.5 HHCCT RBC num Bld Auto 4.59Mil/uL Normal [id number] 4 - 5.4 HHCCT RDW RBC Auto-Rto 13.2% Normal [id number] 11.5 - 14. 5 HHCCT PMV Bld Auto 9.6fL Normal [id number] 7.5 - 12.[address] MCH RBC Qn Auto 28.5pg Normal [id number] 26 - 34 H HCCT WBC num Bld Auto 6.9Thou/uL Normal [id number] 4 - 11 HHCCT Platelet num Bld Auto 411Thou/uL Normal [id number] 150 - 450 HHCCT MCHC RBC Auto-mCnc 32g/dL Normal [id number] 30 - 36 HHCCT Hct VFr Bld Auto 41% Normal [id number] 35 - 47 HHCCT MCV RBC Auto 89fL Normal [id number] 80 - 100 HH[facility] T Hgb Bld-mCnc 13.1g/dL Normal [id number] 11.7 - 15.7 HH CCT Phosphate SerPl-mCnc 3.1mg/dL Normal [id number] 2.7 - 4.5 HHCCT Magnesium SerPl-mCnc 2.1mg/dL Normal [id number] 1.6 - 2.7 HHCCT Calcium SerPl-mCnc 9.5mg/dL Normal [id number] 8.7 - 10 .5 HHCCT BUN SerPl-mCnc 5mg/dL Below low normal [id number] 8 - 2 1 HHCCT Creat SerPl-mCnc 0.9mg/dL Normal 0.4 - 1.1 HHCCT GFR/BSA.pred SerPlBld ZQJ-SFV-ZbGIuf 90 Normal [id number] 59 - HHCCT Chloride SerPl-sCnc 107mmol/L Normal [id number] 98 - 10 7 HHCCT BUN/Creat SerPl 6Ratio Below low normal [id number] 10 - 25 HHCCT CO2 SerPl-sCnc 21mmol/L Below low normal [id number] 22 - 33 HHCCT Anion Gap Bld-sCnc 11 Normal [id number] 7 - 17 HHCCT Potassium SerPl-sCnc 4.2mmol/L Normal [id number] 3.4 - 5.3 [facility] Glucose SerPl-mCnc 92mg/dL Normal [id number] 65 - 99 [facility] Sodium SerPl-sCnc 139mmol/L Normal [id number] 136 - 145 [facility] RBC num Bld Auto 4.17Mil/uL Normal [id number] 4 - 5.4 [facility] RDW RBC Auto-Rto 13% Normal [id number] 11.5 - 14. 5 [facility] PMV Bld Auto 9.3fL Normal [id number] 7.5 - 12.[address] MCH RBC Qn Auto 29pg Normal [id number] 26 - 34 H [facility] WBC num Bld Auto 7.5Thou/uL Normal [id number] 4 - 11 [facility] Platelet num Bld Auto 343Thou/uL Normal [id number] 150 - 450 H[facility]CT MCHC RBC Auto-mCnc 33.2g/dL Normal [id number] 30 - 36 H[facility] Hct VFr Bld Auto 36.5% Normal [id number] 35 - 47 H[facility]CT MCV RBC Auto 88fL Normal [id number] 80 - 100 HHCC T Hgb Bld-mCnc 12.1g/dL Normal [id number] 11.7 - 15.7 HH CCT Magnesium SerPl-mCnc 2mg/dL Normal [id number] 1.6 - 2.7 H[facility]CT Cortis 1h p ACTH SerPl-mCnc 35.6ug/dL Normal [id number] H[facility]CT Cortis 30M p ACTH SerPl-mCnc 34.1ug/dL Normal [id number] HHCCT Phosphate SerPl-mCnc 2.3mg/dL Below low normal [id number] 2.7 - 4.5 [facility]CT Cortis AM peak SerPl-mCnc 23.6ug/dL Above high normal 870962202411 6.2 - 19.4 H[facility]CT AST SerPl-cCnc 25U/L Normal [id number] 10 - 50 HH CCT ALT SerPl-cCnc 35U/L Normal [id number] 10 - 50 HH CCT Creat SerPl-mCnc 0.9mg/dL Normal [id number] 0.4 - 1.1 [facility]CT Globulin Ser Calc-mCnc 2.9g/dL Normal [id number] 1.5 - 3.9 [facility]CT CO2 SerPl-sCnc 24mmol/L Normal [id number] 22 - 33 HH CCT Albumin/Glob SerPl 1.4Ratio Normal [id number] 1 - 3 [facility] Anion Gap Bld-sCnc 10 Normal [id number] 7 - 17 [facility]CT Potassium SerPl-sCnc 4.1mmol/L Normal [id number] 3.4 - 5.3 H[facility]CT Bilirub SerPl-mCnc 0.5mg/dL Normal [id number] 0.2 - 1 [facility]CT Calcium SerPl-mCnc 9.8mg/dL Normal [id number] 8.7 - 10 .5 [facility]CT BUN SerPl-mCnc 5mg/dL Below low normal [id number] 8 - 2 1 H[facility]CT ALP SerPl-cCnc 33U/L Normal [id number] 32 - 122 HH CCT GFR/BSA.pred SerPlBld CAL-IBN-KiGYpj 90 Normal [id number] 59 - HHCCT Chloride SerPl-sCnc 103mmol/L Normal [id number] 98 - 10 7 [facility]CT BUN/Creat SerPl 6Ratio Below low normal [id number] 10 - 25 H[facility]CT Albumin SerPl-mCnc 4.1g/dL Normal [id number] 3.5 - 5 H[facility]CT Prot SerPl-mCnc 7g/dL Normal [id number] 6.3 - 8.3 H HCCT Glucose SerPl-mCnc 94mg/dL Normal [id number] 65 - 99 H[facility]CT Sodium SerPl-sCnc 137mmol/L Normal [id number] 136 - 145 H[facility]CT Potassium SerPl-sCnc 3.8mmol/L Normal [id number] 3.4 - 5.3 H[facility]CT Magnesium SerPl-mCnc 2.2mg/dL Normal [id number] 1.6 - 2.7 H[facility]CT Phosphate SerPl-mCnc 2.5mg/dL Below low normal [id number] 2.7 - 4.5 H[facility]CT Cortis AM peak SerPl-mCnc 5ug/dL Below low normal [id number] 6.2 - 19.4 H[facility]CT TSH SerPl DL<=0.005 mIU/L-aCnc 1.66mIU/L Normal [id number] 0.27 - 4.2 H[facility]CT Phosphate SerPl-mCnc 1.5mg/dL Below low normal [id number] 2.7 - 4.5 H[facility]CT Magnesium SerPl-mCnc 2.1mg/dL Normal [id number] 1.6 - 2.7 H[facility]CT Calcium SerPl-mCnc 10.5mg/dL Normal [id number] 8.7 - 10 .5 H[facility]CT BUN SerPl-mCnc 6mg/dL Below low normal [id number] 8 - 2 1 H[facility]CT Creat SerPl-mCnc 1mg/dL Normal [id number] 0.4 - 1.1 HHCCT GFR/BSA.pred SerPlBld FKY-ZEP-TtKPnq 80 Normal [id number] 59 - HHCCT Chloride SerPl-sCnc 105mmol/L Normal [id number] 98 - 10 7 H[facility]CT BUN/Creat SerPl 6Ratio Below low normal [id number] 10 - 25 H[facility]CT CO2 SerPl-sCnc 21mmol/L Below low normal [id number] 22 - 33 H[facility]CT Anion Gap Bld-sCnc 16 Normal [id number] 7 - 17 H[facility]CT Potassium SerPl-sCnc 3.5mmol/L Normal [id number] 3.4 - 5.3 H[facility]CT Glucose SerPl-mCnc 95mg/dL Normal [id number] 65 - 99 H[facility]CT Sodium SerPl-sCnc 142mmol/L Normal [id number] 136 - 145 HHCCT AST SerPl-cCnc 39U/L Normal [id number] 10 - 50 HH CCT ALP SerPl-cCnc 34U/L Normal [id number] 32 - 122 HH CCT ALT SerPl-cCnc 54U/L Above high normal [id number] 10 - 50 H[facility]CT Globulin Ser Calc-mCnc 3.2g/dL Normal [id number] 1.5 - 3.9 HHCCT Bilirub Direct SerPl-mCnc 0.2mg/dL Normal [id number] 0 - 0.2 H[facility]CT Albumin/Glob SerPl 1.3Ratio Normal [id number] 1 - 3 H[facility]CT Albumin SerPl-mCnc 4.3g/dL Normal [id number] 3.5 - 5 HHCCT Prot SerPl-mCnc 7.5g/dL Normal [id number] 6.3 - 8.3 H HCCT Bilirub SerPl-mCnc 0.3mg/dL Normal [id number] 0.2 - 1 H[facility]CT Lipase SerPl-cCnc 17U/L Normal [id number] 13 - 60 HHCCT D dimer FEU PPP-mCnc 150ng/mLDDU Normal [id number] - 230 H[facility]CT Neutrophils num Bld Auto 5.07Thou/uL Normal [id number] 2 - 7.5 HHCCT Monocytes num Bld Auto 0.49Thou/uL Normal [id number] 0.2 - 1.5 [facility] Eosinophil num Bld Auto 0.09Thou/uL Normal [id number] 0 - 0.7 [facility] WBC num Bld Auto 8.3Thou/uL Normal [id number] 4 - 11 [facility] RBC Auto-mCnc 32g/dL Normal [id number] 30 - 36 [facility] Monocytes/leuk NFr Bld Auto 5.9% Normal [id number] [facility] Hct VFr Bld Auto 43.4% Normal [id number] 35 - 47 [facility] RBC num Bld Auto 4.99Mil/uL Normal [id number] 4 - 5.4 [facility] RDW RBC Auto-Rto 13.2% Normal [id number] 11.5 - 14. 5 [facility] PMV Bld Auto 9.4fL Normal [id number] 7.5 - 12.5 [facility] Eosinophil/leuk NFr Bld Auto 1.1% Normal [id number] [facility] MCH RBC Qn Auto 27.9pg Normal [id number] 26 - 34 [facility] Basophils/leuk NFr Bld Auto 1% Normal [id number] [facility] Basophils num Bld Auto 0.08Thou/uL Normal [id number] 0 - 0.2 [facility] Platelet num Bld Auto 377Thou/uL Normal [id number] 150 - 450 [facility] Neutrophils/leuk NFr Bld Auto 61.2% Normal [id number] [facility] MCV RBC Auto 87fL Normal [id number] 80 - 100 [facility] Lymphocytes/leuk NFr Bld Auto 30.4% Normal [id number] [facility] Lymphocytes num Bld Auto 2.52Thou/uL Normal [id number] 1.5 - 4.5 [facility] Imm Granulocytes/leuk NFr Bld Auto 0.4% Normal [id number] [facility] Hgb Bld-mCnc 13.9g/dL Normal [id number] 11.7 - 15.7 [facility] Imm Granulocytes num Bld Auto 0.03Thou/uL Normal [id number] 0 - 0.1 [facility] History of Medication Use Medication Directions Dispensed Refills Start Date End Date Status traMADol (ULTRAM) 50 MG tablet Take 1 tablet (50 mg total) by mouth 3 times daily (every 8 hours) as needed for severe pain. OK to crush and administer via PEG 5 active proMETHAZINE (PHENERGAN) 6.25 mg/5 mL oral solution Take 10 mL (12.5 mg total) by mouth 4 times daily (every 6 hours) as needed for nausea or vomiting. 5 active polyethylene glycol (miraLAx) 17 g packet 1 packet (17 g total) by NG Tube route daily as needed for constipation. 4 04/30/20 24 active fludrocortisone (FLORINEF) 0.1 MG tablet Take 1 tablet (0.1 mg total) by mouth daily. 4 active proCHLORPERAZINE (COMPAZINE) 5 MG tablet Take 1 tablet (5 mg total) by mouth 4 times daily (every 6 hours) as needed for nausea or vomiting. 4 06/08/19 25 active hydrOXYzine HCl (ATARAX) 10 MG tablet Take 1 tablet (10 mg total) by mouth nightly. 5 active ondansetron (ZOFRAN) 8 MG tablet Take 1 tablet (8 mg total) by mouth 3 times daily (every 8 hours) as needed for nausea or vomiting. 4 active norethindrone-ethiny lestradiol-iron (Microgestin FE 1.5/30) 1.5-30 MG-MCG tab Take 1 tablet by mouth daily. 4 04/24/20 24 active simethicone (MYLICON) 80 MG chewable tablet Chew 1 tablet (80 mg total) 4 times daily (every 6 hours) as needed for gastrointestinal distress or flatulence. 4 active multivitamin with minerals (CEROVITE) Liquid liquid Take 15 mL by mouth daily. 5 active guaiFENesin (ROBITUSSIN) 100 mg/5 mL Liquid liquid Take 10 mL (200 mg total) by mouth every 4 (four) hours as needed for cough. 5 active ondansetron (ZOFRAN-ODT) 4 MG disintegrating tablet DISSOLVE 1 TABLET ON THE TONGUE BY MOUTH EVERY DAY 4 active fluvoxaMINE (LUVOX) 25 MG tablet Take 1 tablet (25 mg total) by mouth 2 (two) times a day. Part of 125 mg dose suspende d cromolyn (GASTROCROM) 100 MG/5ML solution Take 10 mL (200 mg total) by mouth 3 times a day. 4 active sucralfate (CARAFATE) 1 GM/10ML suspension TAKE 10 ML BY MOUTH 1 HOUR BEFORE MEALS AND AT BEDTIME ON AN EMPTY STOMACH ORALLY FOUR TIMES A DAY 4 active aspirin 81 MG chewable tablet Chew 1 tablet (81 mg total) daily. active clonazePAM (KlonoPIN) 1 MG tablet TAKE 1 TABLET BY MOUTH TWICE A DAY FOR 28 DAYS 4 suspended Problems Problem Status Onset Date Problem Type Date of Resoluti on Source Syncope and collapse active 2024-03-16 ProblemAct [facility] POTS (postural orthostatic tachycardia syndrome) active 2024-06-11 ProblemAct [facility] Gastroparesis active 2024-05-22 ProblemAct [facility] T Emesis active 2024-03-29 ProblemAct [facility] Cluster B personality disorder in adolescent active 2016-09-10 ProblemAct [facility] Mood disorder active 2021-03-13 ProblemAct [facility] T On total parenteral nutrition (TPN) active 2024-06-11 ProblemAct [facility] Nausea vomiting and diarrhea active 2024-05-22 ProblemAct [facility] Alteration in patient safety due to identified suicide risk active 2021-03-19 ProblemAct [facility] 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
--- OUTSIDE RECORDS SUMMARY | 2024-07-23 19:26 | XMS_ITS | Clinical Summary ---
Author Organization [facility] Address [address] [place] [id number] Care Team Providers Care Quality Control Lead Name Role Phone Austin Goff MD Unavailable [phone] Luci Parra APRN Primary Care Provider [phone] Anthony Maldonado PA-C Unavailable [phone] Allergies Active Allergy Reactions Criticality Noted Date Comments Amoxicillin Hives High 09/30/2011 Prochlorperazine Dyskinesia/Dystoni a Medium 05/28/2024 Dgqbwqhpar-Ppnu-Yujyhvto Hives,Shortness Of Breath High 03/29/2024 Fish-Derived Products Hives Medium 03/20/2024 Gluten Hives,GI Intolerance/Nausea /Vomiting Medium 11/27/2015 Gluten Meal Hives,GI Intolerance/Nausea /Vomiting Medium 02/07/2022 Iron Sucrose Swelling Medium 11/30/2023 Hands ankles and knees swollen Other Reaction(s): allergic reaction Midodrine Other (See Comments) Medium 04/04/2024 Left side face droop, muscle tightness in neck and lock jaw Oxcarbazepine Hives,Rash/Dermati tis Medium 11/30/2023 Peanut-Containing Drug Products Hives,Itching Medium 03/22/2024 Patient states they can tolerate (03/29/24). Phosphate Hives Medium 12/01/2023 Patient states they can tolerate the IV when pre-dosed with Benadryl and Compazine (03/29/24). Phosphorus Hives Medium 12/14/2023 Hives to both PhosNak and KPhos neutral. Patient states they can tolerate the IV when pre-dosed with Benadryl and Compazine (03/29/24). Metoclopramide Other (See Comments) Medium 03/29/2024 tremors Seafood Hives Medium 03/20/2024 Medications Medication Sig Dispensed Refills Start Date End Date Status baclofen (LIORESAL) 10 MG tablet Take 1 tablet (10 mg total) by mouth every evening. 4 Active fexofenadine (JAYLENE) 180 MG tablet Take 1 tablet (180 mg total) by mouth daily. 4 Active fluvoxaMINE (LUVOX) 100 MG tablet Take 1 tablet (100 mg total) by mouth 2 times a day. Part of 125 mg dose Active LORazepam (ATIVAN) 1 MG tablet Take 1 tablet (1 mg total) by mouth 3 times daily (every 8 hours) as needed for anxiety. Active simethicone (MYLICON) 80 MG chewable tabletIndications: Flatulence Chew 1 tablet (80 mg total) 4 times daily (every 6 hours) as needed for gastrointestinal distress or flatulence. Active aspirin 81 MG chewable tablet Chew 1 tablet (81 mg total) daily. Active fluticasone (FloNASE) 50 mcg/spray nasal spray 1 spray into each nostril daily as needed. Active EPINEPHrine 0.3 mg/0.3 mL IJ auto-injection Inject 0.3 mL (0.3 mg total) into the thigh once as needed for allergic reaction. Active norethindrone-ethi nylestradiol-iron (Microgestin FE ) 1.5-30 MG-MCG tabIndications:Use s control Take 1 tablet by mouth daily. 28 tablet 1 Active Additional Information Patient taking differently:1 tablet OralNightly, Reason: Other, Informant: Self, Pharmacy, Reported on 03/29/2024 fluvoxaMINE (LUVOX) 25 MG tablet Take 1 tablet (25 mg total) by mouth 2 (two) times a day. Part of 125 mg dose Active diphenhydrAMINE (BENADRYL) 12.5 mg/5 mL liquid Take 20 mL (50 mg total) by mouth 2 (two) times a day as needed for allergies. Active famotidine (PEPCID) 20 MG tabletIndications: Gastroesophageal reflux disease, unspecified whether esophagitis present Take 1 tablet (20 mg total) by mouth daily. 30 tablet 4 Active Additional Information Patient taking differently:20 mg Oral2 times daily, Reported on 06/13/2024 fludrocortisone (FLORINEF) 0.1 MG tabletIndications: Orthostatic hypotension Take 1 tablet (0.1 mg total) by mouth daily. 30 tablet 4 Active Additional Information Patient taking differently: 0.2 mgOral Daily, Reported on 06/13/2024 ondansetron (ZOFRAN) 8 MG tabletIndications: Vomiting associated with bulimia nervosa with nausea Take 1 tablet (8 mg total) by mouth 3 times daily (every 8 hours) as needed for nausea or vomiting. 30 tablet 4 Active clonazePAM (KlonoPIN) 1 MG tablet TAKE 1 TABLET BY MOUTH TWICE A DAY FOR 28 DAYS 4 Active ondansetron (ZOFRAN-ODT) 4 MG disintegrating tabletIndications: Refeeding syndrome,Vomiting associated with bulimia nervosa with nausea Take 1 tablet (4 mg total) by mouth 3 times daily (every 8 hours) as needed for nausea or vomiting. Place tablet on tongue to dissolve. 30 tablet 4 Active sodium chloride (NS) bolusIndications:N ausea and vomiting, unspecified vomiting type,POTS (postural orthostatic tachycardia syndrome) Bolus 1 L normal saline on mon, wed, Fri as needed for dehydration, diarrhea. 1000 mL 5 Active cromolyn (GASTROCROM) 100 MG/5ML solutionIndication s:Mast cell activation syndrome Take 10 mL (200 mg total) by mouth 3 times a day. 90 mL 5 Active guaiFENesin (ROBITUSSIN) 100 mg/5 mL Liquid liquidIndications: Nausea & vomiting Take 10 mL (200 mg total) by mouth every 4 (four) hours as needed for cough. 1200 mL 5 Active hydrOXYzine HCl (ATARAX) 10 MG tabletIndications: Nausea & vomiting Take 1 tablet (10 mg total) by mouth nightly. 30 tablet 5 Active polyethylene glycol (miraLAx) 17 g packetIndications: Nausea & vomiting 1 packet (17 g total) by NG Tube route daily as needed for constipation. 14 packet 5 Active senna-docusate (SENNA-S) 8.6-50 MGIndications:Naus ea & vomiting Take 2 tablets by mouth nightly as needed for constipation. 30 tablet 5 Active proMETHAZINE (PHENERGAN) 6.25 mg/5 mL oral solutionIndication s:Nausea and vomiting, unspecified vomiting type Take 10 mL (12.5 mg total) by mouth 4 times daily (every 6 hours) as needed for nausea or vomiting. 300 mL 5 Active traMADol (ULTRAM) 50 MG tabletIndications: Generalized abdominal pain Take 1 tablet (50 mg total) by mouth 3 times daily (every 8 hours) as needed for severe pain. OK to crush and administer via PEG 60 tablet 5 Active ivabradine (CORLANOR) 5 MG tabletIndications: Other abnormalities of heart beat,Syncope and collapse Take 1 tablet (5 mg total) by mouth 2 (two) times a day. 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 Step 1 - Warning Signs [thoughts, images, mood, situation, behavior] that a crisis may be developin. Increased self-harming 2. Increased isolation 3. Lack of motivation Step 2 - Coping strategies: things I can do to take my mind off of my problems without contacting others [relaxation technique; physical exercise] 1. Reach out to friends 2. Weighted blanket 3. Utilize providers Step 3 - People and social settings that provide distraction 1. Name: Friend Phone: in cell 2. Name: Family Phone: in cell 3. Place: Go for a drive 4. Place: [place] Step 4 - People whom I can ask for help: 1. Name: Peers Phone: in cell 2. Name: Friend Phone: in cell 3. Name: Mom and Dad Phone: in cell Step 5 - Professionals or agencies I can contact during a crisis 1. Name: [employer] Net Med Provider 2. Name: Service Net Therapist 3. Name: 24-Hour Crisis Hotline - [facility] Additional Resources: [place] infoline 211, Suicide Prevention Lifeline 5-162-514-TALK (5330), Text Hello to 040599, 676 Step 6 - Making the environment safe/access to guns: No access to guns in home. 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 Depression, major, recurrent 08/04/2016 H/O self-harm 08/04/2016 Encounters Date Type Department Care Team Description 07/20/2024 Scanned Document [facility] [address] [place] [address] Ran Mckenzie MD 07/19/2024 Scanned Document [address] [facility] [address] Ran Mckenzie MD 07/04/2024 Orders Only [facility] [address] [facility] [place] [address] Ran Mckenzie MD Generalized abdominal pain (Primary Dx) 07/04/[address] [place] [address] Ran Mckenzie MD 07/04/[address] [place] [address] Ran Mckenzie MD 07/03/2024 11:13 AM EST Anesthesia Event [facility] Radiology [address] [place] [address] Joe Arce MD 07/03/2024 11:00 AM EST - 07/03/2024 12:30 PM EST Surgery [facility] Radiology [address] [place] [address] Anisha Almodovar MD IR Insert G/J Tube Incl Imaging 07/03/2024 10:02 AM EST - 07/03/2024 1:25 PM EST Hospital Encounter [facility] Radiology [address] [place] [address] Sameer Maxwell MD Nausea and vomiting, unspecified vomiting type Discharge Disposition: Home or Self Care 07/03/2024 Telephone [facility] [address] [facility] [address] Ran Mckenzie MD 07/03/2024 Travel 07/02/2024 Telephone [facility] [address] [facility] [address] Ran Mckenzie MD 06/19/2024 Scanned Document [address] [address] Ran Mckenzie MD 06/15/2024 Scanned Document [address] [address] Ran Mckenzie MD 06/15/2024 Orders Only [address] [address] Ran Mckenzie MD On total parenteral nutrition (TPN) (Primary Dx); Hypermobility syndrome; Nausea and vomiting, unspecified vomiting type 06/14/2024 Orders Only [address] [address] Ran Mckenzie MD Gastroparesis (Primary Dx); On total parenteral nutrition (TPN); Hypermobility syndrome 06/14/2024 Orders Only [address] [address] Ran Mckenzie MD Nausea and vomiting, unspecified vomiting type (Primary Dx) 06/13/2024 1:51 PM EST - 06/13/2024 11:59 PM EST Hospital Encounter [facility] [place] [facility] - Cardiology [address] [place] [address], [place] [address] Anthony Maldonado PA-C Hospital Follow-up Discharge Disposition: Home or Self Care 06/13/2024 Travel 06/11/2024 1:30 PM EST Office Visit [address] [address] Ran Mckenzie MD POTS (postural orthostatic tachycardia syndrome) (Primary Dx); Gastroparesis; Nausea and vomiting, unspecified vomiting type; On total parenteral nutrition (TPN) 06/11/2024 Orders Only [address] [address] Ran Mckenzie MD POTS (postural orthostatic tachycardia syndrome); Gastroparesis; Nausea and vomiting, unspecified vomiting type 06/04/2024 Orders Only [address] [address] Debra Peterson MD Nausea & vomiting 05/29/[address] [address] Ran Mckenzie MD 05/28/2024 Telephone [facility] [place] [facility] - Cardiology [address] [place] [address] Anthony Maldonado PA-C 05/24/2024 Orders Only [address] [phone] Ran Mckenzie MD Nausea and vomiting, unspecified vomiting type (Primary Dx); POTS (postural orthostatic tachycardia syndrome) 05/22/2024 5:42 PM EST - 06/04/2024 2:26 PM EST Hospital Encounter [facility] [address] [place] [address] Georges Williamson MD Leonard, Heather R, MD Brooks, Olivia W, MD Singh, Gagan, MD Muniyappa, Ramesh, MD Pokhrel, Kamal, MD Shah, Nirali, MD Nausea & vomiting (Primary Dx); Mast cell activation syndrome (HCC); Gastroparesis; Mood disorder (HCC); Recurrent major depressive disorder, remission status unspecified (HCC); Nausea and vomiting, unspecified vomiting type; Acute diarrhea; Uses feeding tube; Relative anemia; Anxiety disorder of childhood or adolescence; Depressed bipolar I disorder (HCC); Borderline personality disorder (HCC); Eating disorder, nonorganic Discharge Disposition: Home with Health Care Services 05/22/2024 Travel 05/22/[address] [place] [address] Santana Vanegas MD 05/02/2024 3:13 PM EST - 05/08/2024 4:45 PM EST Hospital Encounter [facility] [address] [address] Sameer Lal MD Udoh, MD Brian Garibay Ramesh, MD Pichardo Castillo, Jose, MD Bergner, Anat, MD Gionfriddo, Robert J, MD Nausea and vomiting (Primary Dx); Refeeding syndrome; Vomiting associated with bulimia nervosa with nausea Discharge Disposition: Home with Health Care Services 05/02/2024 10:30 AM EST - 05/02/2024 3:12 PM EST Hospital Encounter [facility] [place] at [address] [phone] Anthony Maldonado PA-C Discharge Disposition: Home or Self Care 05/02/[id number] [place] [address] Ran Mckenzie MD 05/02/2024 Telephone [facility] [place] at [address] [phone] Anthony Maldonado PA-C 05/02/[address] [place] [address] Ran Mckenzie MD 05/02/2024 Travel 05/01/[address] [phone] Dorothea Castañeda RD Advice Only 04/30/2024 1:00 PM EST Clinical Support [address] [phone] Dorothea Castañeda RD Nutritional counseling (Primary Dx); Nausea and vomiting, unspecified vomiting type 04/27/2024 Telephone [facility] [address] [facility] [address] Provider, Generic 04/24/2024 Orders Only [facility] [address] [facility] [address] Ran Mckenzie MD POTS (postural orthostatic tachycardia syndrome) (Primary Dx); Weight loss; Nausea and vomiting, unspecified vomiting type from Last 3 Months Immunizations Name Administration Dates Next Due Influenza Inactivated/Split Preservative Free IM 03/20/2021() Family History Medical History Relation Name Comments Alcohol abuse Father Alcohol abuse Maternal Aunt Alcohol abuse Maternal Grandfather Alcohol abuse Mother Anxiety disorder Mother Personality disorder Mother Alcohol abuse Paternal Grandfather Alcohol abuse Paternal Grandmother Anxiety disorder Paternal Grandmother Anxiety disorder Sister Depression Sister Eating disorder Sister Relation Name Status Comments Father Maternal Aunt Maternal Grandfather Mother Paternal Grandfather Paternal Grandmother Sister Other Eating disorder when younger Social History Tobacco Use Types Packs/Day Years Used Date Smoking Tobacco: Never Smokeless Tobacco: Never Tobacco Cessation:Counseling Given: Not Answered Alcohol Use Standard Drinks/Week Comments Not Currently 0 (1 standard drink = 0.6 oz pur e alcohol) [facility] Utilities Answer Date Recorded In the past 12 months has e [employer], gas, oil, or water [employer] threatened to shut off services in your [...] any time in the past [address] [facility], were you homeless or living in a halfway (including now)? No 05/27/2024 Sex and Gender Information Value Date Recorded Sex Assigned at Female 03/15/2024 6:18 PM EDT Gender Identity Female 03/15/2024 6:18 PM EDT Sexual Orientation Choose not to disclose 2023 6:18 PM EDT Last Filed Vital Signs Vital Sign Reading Time Taken Comments Blood Pressure 124/82 07/03/2024 1:00 PM EST Pulse 100 07/03/2024 1:00 PM EST Temperature 35.8 ??C (96.4 ??F) 07/03/2024 12:[address] Respiratory Rate 18 07/03/2024 1:00 PM EST Oxygen Saturation 99% 07/03/2024 1:00 PM EST Inhaled Oxygen Concentration - - Weight 57.8 kg (127 lb 6.4 oz) 06/13/2024 2:24 P M EST Height 160 cm (5' 3 ) 06/13/2024 2:24 PM EST Body Mass Index 22.57 06/13/2024 2:24 PM EST Plan of Treatment Upcoming Encounters Date Type Department Care Team (Late st Contact Info) Description 09/20/2024 3:00 PM EDT Office Visit [address] [place] [address] Ran Mckenzie MD [address] [place], [place] [address] Health Maintenance Due Date Last Done Comments Hepatitis C Virus Screening 1998 HIV Screening 08/30/2011 HPV Vaccines (1 - 3-dose series) 2013 DTaP/Tdap/Td Vaccines (1 - Tdap) 2017 Hepatitis B Vaccines (1 of 3 - 19+ 3-dose series) 2017 Pap Smear (Ages 21-65) 08/30/2019 Influenza Vaccine 12/22/2023 COVID-19 Vaccine (1 - 2023-2 5 season) 2024 Pneumococcal Vaccine: Pediat aissatou (0-5 Years) and At-Risk Patients (6 to 49 Years) Aged Out No longer eligible b ased on patient's age to complete this topic Medical Devices Implanted Type Area Travel Director Device Identifier Shelf Expiration Date Model / Serial / Lot 8250-16 Kit Jejunostomy 45cm 16fr Shanice Cassandra Radopq Feed Tube Internal - [id number] Implanted:Qty: 1 on 07/03/2024 by Invasive[facility] Tube N/A: Abdomen [id number] [id number] 08/23/2025 8250-16 / / [id number] Procedures Procedure Name Priority Date/Time Associated Diagnosis Comments IR INSERT G-J TUBE INCL IMAGING Routine 07/03/2024 12:17 PM EST Nausea and vomiting, unspecified vomiting type ANES INTUBATION Routine 07/03/2024 11:36 AM EST PROTIME-INR Routine 06/18/2024 3:06 PM EST Nausea and vomiting, unspecified vomiting type COMPLETE BLOOD COUNT, WITH DIFFERENTIAL Routine 06/18/2024 3:06 PM EST Nausea and vomiting, unspecified vomiting type POCT GLUCOSE, FINGERSTICK (CHARGE) Routine 06/04/2024 7:56 AM EST MAGNESIUM Routine 06/04/2024 4:55 AM EST POCT GLUCOSE, FINGERSTICK (CHARGE) Routine 06/04/2024 2:38 AM EST POCT GLUCOSE, FINGERSTICK (CHARGE) Routine 06/03/2024 5:03 PM EST POCT GLUCOSE, FINGERSTICK (CHARGE) Routine 06/03/2024 12:04 PM EST TRIGLYCERIDES Routine 06/03/2024 5:37 AM EST TRANSFERRIN Routine 06/03/2024 5:37 AM EST PREALBUMIN Routine 06/03/2024 5:37 AM EST HEPATIC FUNCTION PANEL Routine 5:37 AM EST MAGNESIUM Routine 06/03/2024 5:37 AM EST POCT GLUCOSE, FINGERSTICK (CHARGE) Routine 06/03/2024 4:07 AM EST POCT GLUCOSE, FINGERSTICK (CHARGE) Routine 06/02/2024 11:47 PM EST POCT GLUCOSE, FINGERSTICK (CHARGE) Routine 06/02/2024 10:16 PM EST POCT GLUCOSE, FINGERSTICK (CHARGE) Routine 06/02/2024 5:12 PM EST PHOSPHORUS Routine 06/02/2024 11:43 AM EST BASIC METABOLIC PANEL Routine 06/02/2024 11:43 AM EST POCT GLUCOSE, FINGERSTICK (CHARGE) Routine 06/02/2024 8:41 AM EST MAGNESIUM Routine 06/02/2024 5:36 AM EST POCT GLUCOSE, FINGERSTICK (CHARGE) Routine 06/01/2024 10:14 PM EST POCT GLUCOSE, FINGERSTICK (CHARGE) Routine 06/01/2024 5:00 PM EST RESPIRATORY PCR PANEL Routine 06/01/2024 1:39 PM EST POCT GLUCOSE, FINGERSTICK (CHARGE) Routine 06/01/2024 8:17 AM EST MAGNESIUM Routine 06/01/2024 6:00 AM EST POCT GLUCOSE, FINGERSTICK (CHARGE) Routine 06/01/2024 1:42 AM EST POCT GLUCOSE, FINGERSTICK (CHARGE) Routine 05/31/2024 9:42 PM EST POCT GLUCOSE, FINGERSTICK (CHARGE) Routine 05/31/2024 5:06 PM EST PHOSPHORUS Routine 05/31/2024 3:36 PM EST MAGNESIUM Routine 05/31/2024 3:36 PM EST BASIC METABOLIC PANEL Routine 05/31/2024 3:36 PM EST POCT GLUCOSE, FINGERSTICK (CHARGE) Routine 05/31/2024 11:52 AM EST MAGNESIUM Routine 05/31/2024 5:51 AM EST POCT GLUCOSE, FINGERSTICK (CHARGE) Routine 05/31/2024 4:20 AM EST POCT GLUCOSE, FINGERSTICK (CHARGE) Routine 05/30/2024 10:22 PM EST POCT GLUCOSE, FINGERSTICK (CHARGE) Routine 05/30/2024 4:46 PM EST NM GASTRIC EMPTYING STUDY Routine 05/30/2024 2:30 PM EST POCT GLUCOSE, FINGERSTICK (CHARGE) Routine 05/30/2024 9:35 AM EST PHOSPHORUS Routine 05/30/2024 5:10 AM EST BASIC METABOLIC PANEL Routine 05/30/2024 5:10 AM EST MAGNESIUM Routine 05/30/2024 5:10 AM EST POCT GLUCOSE, FINGERSTICK (CHARGE) Routine 05/30/2024 4:09 AM EST POCT GLUCOSE, FINGERSTICK (CHARGE) Routine 05/29/2024 10:48 PM EST POCT GLUCOSE, FINGERSTICK (CHARGE) Routine 05/29/2024 4:53 PM EST TRIGLYCERIDES Routine 05/29/2024 6:10 AM EST PHOSPHORUS Routine 05/29/2024 6:10 AM EST MAGNESIUM Routine 05/29/2024 6:10 AM EST BASIC METABOLIC PANEL Routine 05/29/2024 6:10 AM EST POCT GLUCOSE, FINGERSTICK (CHARGE) Routine 05/29/2024 5:11 AM EST POCT GLUCOSE, FINGERSTICK (CHARGE) Routine 05/28/2024 9:23 PM EST TRIGLYCERIDES Routine 05/28/2024 6:58 AM EST PHOSPHORUS Routine 05/28/2024 6:58 AM EST MAGNESIUM Routine 05/28/2024 6:58 AM EST BASIC METABOLIC PANEL Routine 05/28/2024 6:58 AM EST POCT GLUCOSE, FINGERSTICK (CHARGE) Routine 05/28/2024 4:44 AM EST POCT GLUCOSE, FINGERSTICK (CHARGE) Routine 05/27/2024 10:32 PM EST POCT GLUCOSE, FINGERSTICK (CHARGE) Routine 05/27/2024 12:49 PM EST TRIGLYCERIDES Routine 05/27/2024 6:43 AM EST BASIC METABOLIC PANEL Routine 05/27/2024 6:43 AM EST COMPLETE BLOOD COUNT, WITHOUT DIFFERENTIAL Routine 05/27/2024 6:43 AM EST GENERAL PROCEDURE Routine 05/26/2024 3:5 1 PM EST PHOSPHORUS Routine 05/26/2024 7:58 AM EST MAGNESIUM Routine 05/26/2024 7:58 AM EST BASIC METABOLIC PANEL Routine 05/26/2024 7:58 AM EST COMPLETE BLOOD COUNT, WITHOUT DIFFERENTIAL Routine 05/25/2024 6:13 AM EST PHOSPHORUS Routine 05/25/2024 6:13 AM EST MAGNESIUM Routine 05/25/2024 6:13 AM EST BASIC METABOLIC PANEL Routine 05/25/2024 6:13 AM EST HEPATIC FUNCTION PANEL Routine 6:13 AM EST PHOSPHORUS STAT 05/24/2024 9:04 AM EST MAGNESIUM STAT 05/24/2024 9:04 AM EST BASIC METABOLIC PANEL STAT 05/24/2024 9:04 AM EST ECG 12-LEAD STAT 05/22/2024 5:55 PM EST BETA-HCG, QUALITATIVE STAT 05/22/2024 5:53 PM EST PHOSPHORUS STAT 05/22/2024 5:53 PM EST LIPASE STAT 05/22/2024 5:53 PM EST HEPATIC FUNCTION PANEL STAT 5:53 PM EST MAGNESIUM STAT 05/22/2024 5:53 PM EST BASIC METABOLIC PANEL STAT 05/22/2024 5:53 PM EST COMPLETE BLOOD COUNT, WITH DIFFERENTIAL STAT 05/22/2024 5:53 PM EST PHOSPHORUS Routine 05/08/2024 6:32 AM EST MAGNESIUM Routine 05/08/2024 6:32 AM EST BASIC METABOLIC PANEL Routine 05/08/2024 6:32 AM EST XR ABDOMEN 2 VIEWS Routine 05/07/2024 11 :39 AM EST MAGNESIUM Routine 05/07/2024 7:15 AM EST PHOSPHORUS Routine 05/07/2024 7:15 AM EST BASIC METABOLIC PANEL Routine 05/07/2024 7:15 AM EST COMPLETE BLOOD COUNT, WITHOUT DIFFERENTIAL Routine 05/07/2024 7:15 AM EST MAGNESIUM Routine 05/06/2024 6:24 AM EST PHOSPHORUS Routine 05/06/2024 6:24 AM EST BASIC METABOLIC PANEL Routine 05/06/2024 6:24 AM EST PHOSPHORUS Routine 05/05/2024 6:27 PM EST BASIC METABOLIC PANEL Routine 05/05/2024 6:27 PM EST COMPREHENSIVE METABOLIC PANEL Routine 05/05/2024 6:52 AM EST PHOSPHORUS Routine 05/05/2024 6:52 AM EST MAGNESIUM Routine 05/05/2024 6:52 AM EST COMPLETE BLOOD COUNT, WITHOUT DIFFERENTIAL Routine 05/05/2024 6:52 AM EST CREATINE KINASE MB FRACTION Routine 05/04/2024 7:10 PM EST CREATINE KINASE, REFLEX TO CKMB Routine 05/04/2024 7:10 PM EST PHOSPHORUS Routine 05/04/2024 7:10 PM EST BASIC METABOLIC PANEL Routine 05/04/2024 7:10 PM EST PHOSPHORUS Routine 05/04/2024 8:21 AM EST MAGNESIUM Routine 05/04/2024 8:21 AM EST COMPREHENSIVE METABOLIC PANEL Routine 05/04/2024 8:21 AM EST PHOSPHORUS STAT 05/03/2024 9:53 AM EST MAGNESIUM STAT 05/03/2024 9:53 AM EST COMPREHENSIVE METABOLIC PANEL STAT 05/03/2024 9:53 AM EST COMPLETE BLOOD COUNT, WITHOUT DIFFERENTIAL STAT 05/03/2024 9:53 AM EST XR ABDOMEN 1 VIEW STAT 05/02/2024 11: 06 PM EST ECG 12-LEAD Routine 05/02/2024 10:39 PM EST POCT , URINE (CHARGE) STAT 05/02/2024 10:20 PM EST URINALYSIS W/ REFLEX TO MICROSCOPIC AND CULTURE STAT 05/02/2024 10:13 PM EST PHOSPHORUS STAT 05/02/2024 3:24 PM EST LIPASE STAT 05/02/2024 3:24 PM EST MAGNESIUM STAT 05/02/2024 3:24 PM EST COMPREHENSIVE METABOLIC PANEL STAT 05/02/2024 3:24 PM EST COMPLETE BLOOD COUNT, WITH DIFFERENTIAL STAT 05/02/2024 3:24 PM EST from Last 3 Months Results * IR INSERT G-J TUBE INCL IMAGING (07/03/2024 12:17 PM EST) Anatomical Region Laterality Modality X-Ray Angiograph y 07/03/2024 11:1 3 AM EST Impressions 07/05/2024 1:03 PM EST Percutaneous placement of 16 [place] gastrojejunostomy tube. Plan: Patient stable for discharge [...] to gravity drainage. Gastrojejunostomy tube placed: 16 [place] CASSANDRA gastrojejunostomy tube. Internal catheter securement: Balloon [...] PROCEDURE: Gastrojejunostomy tube placement Referring provider: SAMEER MAXWELL Procedural Personnel Attending physician(s): Anisha Almodovar MD Resident physician(s): None Advanced practice provider(s): None Pre-procedure diagnosis: Gastroparesis Post-procedure diagnosis: Same Indication: Nutritional support in setting of poor gastric emptying Additional clinical history: None Complications: No immediate complications. Procedure Note Anisha Almodovar MD - 07/05/2024 PROCEDURE: Gastrojejunostomy tube placement Referring provider: SAMEER MAXWELL Procedural Personnel Attending physician(s): Anisha Almodovar MD Resident physician(s): None Advanced practice provider(s): None Pre-procedure diagnosis: Gastroparesis Post-procedure diagnosis: Same Indication: Nutritional support in setting of poor gastric emptying Additional clinical history: None Complications: No immediate complications. IMPRESSION: Percutaneous placement of 16 [place] gastrojejunostomy tube. Plan: Patient stable for discharge [...] to gravity drainage. Gastrojejunostomy tube placed: 16 [place]gu[place]an CASSANDRA gastrojejunostomy tube. Internal catheter securement: Balloon [...] examination. Anisha Almodovar MD IMG IR ORDERABLES * ANES INTUBATION (07/03/2024 11:36 AM EST) [...] baseline Complications: no complications Joe Sutherland MD DE ANESTHE SIENNA * (ABNORMAL) Complete Blood Count, with Differential (06/18/2024 3:06 PM EST) Only the most recent of3 resultswithin the time period is included. White Blood Cell Count 10.1 3.8 - 10.8 Thousand/ uL [facility] Red Blood Cell Count 4.63 3.80 - 5.10 Million/u L [facility] Hemoglobin 12.6 11.7 - 15.5 g/dL [facility] Hematocrit 40.0 35.0 - 45.0 % [facility] MCV 86.4 80.0 - 100.0 fL [facility] MCH 27.2 27.0 - 33.0 pg [facility] MCHC 31.5(L) 32.0 - 36.0 g/dL [facility] Comment: For adults, a slight decrease in the calculated MCHC value (in the range of 30 to 32 g/dL) is most likely not clinically significant; however, it should be interpreted with caution in correlation with other red cell parameters and the patient's clinical condition. RDW 15.9(H) 11.0 - 15.0 % [facility] Platelet Count 454(H) 140 - 400 Thousand/ uL [facility] MPV 10.4 7.5 - 12.5 fL [facility] [employer] [facility] Abs Neutrophils Auto 5,696 1,500 - 7,800 cells/uL [facility] [employer] Abs Lymphocytes Auto 2,868 850 - 3,900 cells/uL [facility] [employer] Abs Monocytes Auto 919 200 - 950 cells/uL [facility] [employer] Abs Eosinophils Auto 545(H) 15 - 500 cells/uL [facility] [employer] Abs Basophils Auto 71 0 - 200 cells/uL [facility] Neutrophils Auto 56.4 % [facility] [employer] [facility] Lymphocytes Auto 28.4 % [facility] [employer] Monocytes Auto 9.1 % [facility] [employer] Eosinophils Auto 5.4 % [facility] Basophils Auto 0.7 % [facility] Blood Blood specimen / Unknown 06/18/2024 3:06 PM EST 06/18/2024 3:06 PM EST Narrative [facility] - 06/19/2024 5:00 AM EST FASTING:NO FASTING: NO Ran Mckenzie MD LAB BLOOD ORDERABLES [facility] [address] [place] [address] * PROTIME-INR (06/18/2024 3:06 PM EST) INR 0.9 [facility] Comment: Reference Range ? 0.9-1.1 Moderate-intensity Warfarin Therapy 2.0-3.0 Higher-intensity Warfarin Therapy ?? 3.0-4.0 Prothrombin Time (PT) 10.2 9.0 - 11.5 sec [facility] Comment: For additional information, please refer to http://education.Nativo/faq/XNP313 (This link is being provided for informational/ educational purposes only.) Blood Blood specimen / Unknown 06/18/2024 3:06 PM EST 06/18/2024 3:06 PM EST Narrative [facility] - 06/19/2024 5:00 AM EST FASTING:NO FASTING: NO Ran Mckenzie MD LAB BLOOD ORDERABLES Performing Organization Address City/[facility]/ZIP Co de Phone Number [facility] [address] [place] [phone] * (ABNORMAL) POCT Glucose, Fingerstick (06/04/2024 7:56 AM EST) Only the most recent of28 resultswithin the time period is included. POC Glucose 107(H) 65 - 99 mg/dL 06/04/2024 8:04 AM EST Blood specimen / Unknown 06/04/2024 7:56 AM EST 06/04/2024 8:04 AM EST Georges Williamson MD POINT OF CARE TEST O RDERABLES Performing Organization Address City/[facility] Co de Phone Number HOSPITAL LAB See Below * Magnesium (06/04/2024 4:55 AM EST) Only the most recent of20 resultswithin the time period is included. Magnesium 2.1 1.6 - 2.7 mg/dL 06/04/2024 6:07 AM EST [facility] Blood (Plasma/Serum) 06/04/2024 4:55 AM EST 06/04/2024 5:44 AM EST Erasmo Small MD LAB BLOOD ORDERABLES Performing Organization Address [facility] Co de Phone Number [address] [address], [address] [address] * Triglycerides (06/03/2024 5:37 AM EST) Only the most recent of4 resultswithin the time period is included. Triglycerides 149 <150 mg/dL 06/03/2024 8:32 AM EST [facility] Blood (Plasma/Serum) 06/03/2024 5:37 AM EST 06/03/2024 7:31 AM EST Erasmo Small MD LAB BLOOD ORDERABLES Performing Organization Address City/[facility]/[place] [address], [place] [address] * Transferrin (06/03/2024 5:37 AM EST) Transferrin 304 200 - 360 mg/dL 06/03/2024 8:32 AM EST [facility] Blood (Plasma/Serum) 06/03/2024 5:37 AM EST 06/03/2024 7:31 AM EST Erasmo Small MD LAB BLOOD ORDERABLES Performing Organization Address City/[facility]/[place] [address], [place] [address] * (ABNORMAL) Prealbumin (06/03/2024 5:37 AM EST) Prealbumin 19(L) 20 - 40 mg/dL 06/03/2024 8:32 AM EST [facility] Blood (Plasma/Serum) 06/03/2024 5:37 AM EST 06/03/2024 7:31 AM EST Erasmo Small MD LAB BLOOD ORDERABLES Performing Organization Address City/[facility]/[place] [address], [place] [address] * (ABNORMAL) Hepatic Function Panel (06/03/2024 5:37 AM EST) Only the most recent of3 resultswithin the time period is included. Alkaline Phosphatase 35 32 - 122 U/L 06/03/2024 8:32 AM [facility] Aspartate Aminotrans (AST) 16 10 - 50 U/L 06/03/2024 8:32 AM [facility] Alanine Aminotrans (ALT) 13 10 - 50 U/L 06/03/2024 8:32 AM [facility] Bilirubin, Total <0.2(L) 0.2 - 1.0 mg/dL 06/03/2024 8:32 AM [facility] Protein, Total 6.0(L) 6.3 - 8.3 g/dL 06/03/2024 8:32 AM [facility] Albumin 3.3(L) 3.5 - 5.0 g/dL 06/03/2024 8:32 AM [facility] Bilirubin, Direct <0.1 0 - 0.2 mg/dL 06/03/2024 8:32 AM [facility] Globulin 2.7 1.5 - 3.9 g/dL 06/03/2024 8:32 AM [facility] Albumin/Globulin Ratio 1.2 1.0 - 3.0 Ratio 06/03/2024 8:32 AM [facility] Blood (Plasma/Serum) 06/03/2024 5:37 AM EST 06/03/2024 7:31 AM EST Erasmo Small MD LAB BLOOD ORDERABLES Performing Organization Address City/State/[facility] [place] [address], [place] [address] * Phosphorus (Routine) (06/02/2024 11:43 AM EST) Only the most recent of18 resultswithin the time period is included. Phosphorus 2.7 2.7 - 4.5 mg/dL 06/02/2024 12:10 PM [facility] Blood (Plasma/Serum) 06/02/2024 11:43 AM EST 06/02/2024 11:46 AM EST Debra Peterson MD [place] [address], [place] [address] * Basic Metabolic Panel (Routine) (06/02/2024 11:43 AM EST) Only the most recent of15 resultswithin the time period is included. Glucose 96 65 - 99 mg/dL 06/02/2024 12:10 PM [facility] Comment:Fasting: <100 mg/dL, Non-Fasting: <200 mg/dL (ADA 2004) Blood Urea Nitrogen (BUN) 11 8 - 21 mg/dL 06/02/2024 12:10 PM [facility] Creatinine 0.8 0.4 - 1.1 mg/dL 06/02/2024 12:10 PM [facility] eGFR >90 >59 06/02/2024 12:10 PM [facility] Comment:CKD-EPI (2020) in mL /min/1.73 sq meters. Sodium 139 136 - 145 mmol/L 06/02/2024 12:10 PM [facility] Potassium 4.3 3.4 - 5.3 mmol/L 06/02/2024 12:10 PM [facility] Chloride 106 98 - 107 mmol/L 06/02/2024 12:10 PM [facility] CO2 25 22 - 33 mmol/L 06/02/2024 12:10 PM [facility] Anion Gap 8 7 - 17 06/02/2024 12:10 PM [facility] Calcium 9.6 8.7 - 10.5 mg/dL 06/02/2024 12:10 PM [facility] BUN/Creatinine Ratio 14 10.0 - 25.0 Ratio 06/02/2024 12:10 PM [facility] Blood (Plasma/Serum) 06/02/2024 11:43 AM EST 06/02/2024 11:46 AM EST Debra Peterson MD [place] [address], [address] [address] * Respiratory PCR Panel (06/01/2024 1:39 PM EST) Adenovirus Not Detected Not Detected 06/01/2024 4:45 PM [facility] Coronavirus 229E Not Detected Not Detected 06/01/2024 4:45 PM [facility] Coronavirus HKU1 Not Detected Not Detected 06/01/2024 4:45 PM [facility] Coronavirus NL63 Not Detected Not Detected 06/01/2024 4:45 PM [facility] Coronavirus OC43 Not Detected Not Detected 06/01/2024 4:45 PM [facility] Human Metapneumovirus Not Detected Not Detected 06/01/2024 4:45 PM [facility] Rhinovirus/Enterov irus Not Detected Not Detected 06/01/2024 4:45 PM [facility] Influenza A Not Detected Not Detected 06/01/2024 4:45 PM [facility] Influenza B Not Detected Not Detected 06/01/2024 4:45 PM [facility] Parainfluenza 1 (PIV1) Not Detected Not Detected 06/01/2024 4:45 PM [facility] Parainfluenza 2 (PIV2) Not Detected Not Detected 06/01/2024 4:45 PM [facility] Parainfluenza 3 (PIV3) Not Detected Not Detected 06/01/2024 4:45 PM [facility] Parainfluenza 4 (PIV4) Not Detected Not Detected 06/01/2024 4:45 PM [facility] Respiratory Syncytial Virus Not Detected Not Detected 06/01/2024 4:45 PM [facility] Bordetella pertussis Not Detected Not Detected 06/01/2024 4:45 PM [facility] Chlamydophila pneumoniae Not Detected Not Detected 06/01/2024 4:45 PM [facility] Mycoplasma pneumoniae Not Detected Not Detected 06/01/2024 4:45 PM [facility] Bordetella parapertussis Not Detected Not Detected 06/01/2024 4:45 PM EST [facility] SARS CoV 2 Not Detected Not Detected 06/01/2024 4:45 PM EST [facility] X-Specimen 24 Nasopharyngeal swab / Unknown 06/01/2024 1:39 PM EST 06/01/2024 2:04 PM EST Debra Peterson MD MICROBIOLOGY - [facility] AL ORDERABLES [facility] [address] [place] [address], [place] * NM Gastric emptying study-4hr (05/30/2024 2:30 PM EST) Anatomical Region Laterality Modality Abdomen Nuclear Medicine 05/30/2024 9:51 AM EST Impressions 05/31/2024 8:18 AM EST Abnormal (grade 3) delayed 4 hour gastric emptying study. (For solid meal, rapid gastric emptying is less than 30% at 60 minutes. Delayed gastric emptying criteria is more than 60% remaining at 120 minutes or more than 10% at 240 minutes. The 4-hour value is the best discriminator of a normal or abnormal result). Gastric emptying study grading per JNMT Consensus Recommendations in 2008 (https://tech.snmjournals.org/content/36/1/44) Grade 1 (mild retention): 11-20% at 4h Grade 2 (moderate retention): 21-35% at 4h Grade 3 (severe retention): 36-50% at 4h Grade 4 (very severe retention): >50% retention at 4h Narrative 05/31/2024 8:18 AM EST EXAMINATION: RADIONUCLIDE SOLID FOOD GASTRIC EMPTYING 4-HOUR STUDY CLINICAL INFORMATION: A 23-year-old female to evaluate for gastroparesis. COMPARISON: None. TECHNIQUE: A standard meal consisting of 4 oz of Egg Beaters brand tagged with 520 microcuries Tc-99m Sulfur Colloid, 8 oz water and 2 slices of toast with jelly was administered orally to the patient. Images were obtained using a dual head gamma camera in the anterior and posterior projections over of the stomach immediately post ingestion and at hourly intervals up to 4 hours post ingestion. The anterior and posterior counts at each time interval were averaged using the geometric mean and expressed as percentage of the immediate post ingestion counts. FINDINGS: There is good visualization of activity in the stomach immediately post ingestion. As the study progresses, there is delayed clearance of activity from the stomach and delayed visualization of progressively increasing small bowel activity. By the end of the study, there is significant retention noted in the stomach. Retention in the stomach at each time interval was: 1 hour 80% (normal 37%-90%) 2 hours 58% (normal 30%-60%) 3 hours 45% 4 hours 38% (normal 0%-10%) Procedure Note Nerissa Dhaliwal MD - 05/31/2024 EXAMINATION: RADIONUCLIDE SOLID FOOD GASTRIC EMPTYING 4-HOUR STUDY CLINICAL INFORMATION: A 23-year-old female to evaluate for gastroparesis. COMPARISON: None. TECHNIQUE: A standard meal consisting of 4 oz of Egg Beaters brand tagged with 520 microcuries Tc-99m Sulfur Colloid, 8 oz water and 2 slices of toast with jelly was administered orally to the patient. Images were obtained using a dual head gamma camera in the anterior and posterior projections over of the stomach immediately post ingestion and at hourly intervals up to 4 hours post ingestion. The anterior and posterior counts at each time interval were averaged using the geometric mean and expressed as percentage of the immediate post ingestion counts. FINDINGS: There is good visualization of activity in the stomach immediately post ingestion. As the study progresses, there is delayed clearance of activity from the stomach and delayed visualization of progressively increasing small bowel activity. By the end of the study, there is significant retention noted in the stomach. Retention in the stomach at each time interval was: 1 hour 80% (normal 37%-90%) 2 hours 58% (normal 30%-60%) 3 hours 45% 4 hours 38% (normal 0%-10%) IMPRESSION: Abnormal (grade 3) delayed 4 hour gastric emptying study. (For solid meal, rapid gastric emptying is less than 30% at 60 minutes. Delayed gastric emptying criteria is more than 60% remaining at 120 minutes or more than 10% at 240 minutes. The 4-hour value is the best discriminator of a normal or abnormal result). Gastric emptying study grading per JNMT Consensus Recommendations in 2008 (https://tech.snmjournals.org/content/36/44) Grade 1 (mild retention): 11-20% at 4h Grade 2 (moderate retention): 21-35% at 4h Grade 3 (severe retention): 36-50% at 4h Grade 4 (very severe retention): >50% retention at 4h Carol SOLO IMG NM ORDERABLE S * (ABNORMAL) Complete Blood Count WITHOUT Differential - in AM (05/27/2024 6:43 AM EST) Only the most recent of5 resultswithin the time period is included. White Blood Cell Count 6.7 4.0 - 11.0 Thou/uL 05/27/2024 7:42 AM [facility] Platelet Count 307 150 - 450 Thou/uL 05/27/2024 7:42 AM [facility] Hemoglobin 12.3 11.7 - 15.7 g/dL 05/27/2024 7:42 AM [facility] Hematocrit 37.4 35.0 - 47.0 % 05/27/2024 7:42 AM [facility] Red Blood Cell Count 4.42 4.00 - 5.40 Mil/uL 05/27/2024 7:42 AM [facility] MCV 85 80 - 100 fL 05/27/2024 7:42 AM [facility] MCH 27.8 26.0 - 34.0 pg 05/27/2024 7:42 AM [facility] MCHC 32.9 30.0 - 36.0 g/dL 05/27/2024 7:42 AM [facility] RDW 15.8(H) 11.5 - 14.5 % 05/27/2024 7:42 AM [facility] MPV 10.1 7.5 - 12.5 fL 05/27/2024 7:42 AM [facility] Blood Blood specimen / Unknown 05/27/2024 6:43 AM EST 05/27/2024 7:02 AM EST Erasmo Small MD LAB BLOOD ORDERABLES [address] [address], [address] [address] * PICC Insertion (05/26/2024 3:51 PM EST) Narrative Bety Ellington RN - 05/26/2024 3:51 PM EST Bety Ellington RN ? 05/26/2024 ??3:52 PM PICC Insertion Date/Time: 05/26/2024 3:51 PM Performed by: Bety Ellington RN Authorized by: Erasmo Small MD ??Consent: Written consent obtained. Risks and benefits: risks, benefits and alternatives were discussed (BY PROVIDER) Consent given by: patient Patient understanding: patient states understanding of the procedure being performed Patient consent: the patient's understanding of the procedure matches consent given Procedure consent: procedure consent matches procedure scheduled Relevant documents: relevant documents present and verified Test results: test results available and properly labeled Site marked: the operative site was marked Imaging studies: imaging studies available Required items: required blood products, implants, devices, and special equipment available Patient identity confirmed: arm band, verbally with patient and hospital-assigned identification number Time out: Immediately prior to procedure a time out was called to verify the correct patient, procedure, equipment, presidential support specialist and site/side marked as required. Preparation: Patient was prepped and draped in the usual sterile fashion. Local anesthesia used: yes Anesthesia: local infiltration Anesthesia: Local anesthesia used: yes Local Anesthetic: lidocaine 1% without epinephrine Anesthetic total: 3 mL Sedation: Patient sedated: no Patient tolerance: patient tolerated the procedure well with no immediate complications Erasmo Small MD PROCEDURE/MINOR SURG ICAL ORDERABLES * ECG 12 lead (05/22/2024 5:55 PM EST) Only the most recent of2 resultswithin the time period is included. Ventricular rate 88 BPM EKG [facility] Atrial rate 88 BPM EKG [facility] P-R interval 138 ms EKG [facility] QRS duration 76 ms EKG [facility] Q-T interval 338 ms EKG [facility] QTC calculation (Bazett) 409 ms EKG [facility] P axis 39 degrees EKG [facility] R axis 9 degrees EKG [facility] T axis 29 degrees EKG [facility] 05/22/2024 5:55 PM EST Narrative EKG [facility] - 05/22/2024 9:51 PM EST Normal sinus rhythm Normal ECG When compared with ECG of 02-May-2024 22:39, No significant change was found Confirmed by MD Escalona Shishir ([id number]) on 05/22/2024 9:51:40 PM Procedure Note Oral Escalona MD - 05/22/2024 Normal sinus rhythm Normal ECG When compared with ECG of 02-May-2024 22:39, No significant change was found Confirmed by MD Escalona Shishir ([id number]) on 05/22/2024 9:51:40 PM Elisha Caraballo PA ECG ORDERABLES Performing Organization Address City/[facility]/ZIP Co de Phone Number EKG [facility] * BETA-HCG, QUALITATIVE (05/22/2024 5:53 PM EST) Beta-hCG, Qualitative Negative Negative 05/23/2024 3:08 PM EST [facility] Plasma/Serum 05/22/2024 5:53 PM EST 05/22/2024 6:26 PM EST Elisha Caraballo PA LAB BLOOD ORDERABLES Performing Organization Address [facility] [place] [address], [place] [address] * Lipase (05/22/2024 5:53 PM EST) Only the most recent of2 resultswithin the time period is included. Lipase 26 13 - 60 U/L 05/22/2024 6:53 PM EST [facility] Blood (Plasma/Serum) 05/22/2024 5:53 PM EST 05/22/2024 6:26 PM EST Crystal Rashmi PA LAB BLOOD ORDERABLES Performing Organization Address [facility] [place] [address], [place] [address] * XR Abdomen 2 views (05/07/2024 11:39 AM EST) Anatomical Region Laterality Modality Abdomen Computed Radiogr aphy 05/07/2024 11:3 1 AM EST Impressions 05/09/2024 4:48 PM EST 1. ??Enteric catheter tip in distal duodenum near the level of ligament of Treitz. 2. ??Nonobstructive bowel pattern. Small volume of scattered formed stool. Narrative 05/09/2024 4:48 PM EST EXAMINATION: XR ABDOMEN MULTIPLE PORTABLE CLINICAL INDICATION: Constipation. COMPARISON: XR Abdomen 05/02/2024 TECHNIQUE: 3 views of the abdomen. FINDINGS: Enteric catheter tip in distal duodenum near the level of ligament of Treitz. No abnormally dilated bowel loop. Nonobstructive bowel pattern. Small volume of scattered formed stool. Procedure Note Arose, Amadou Brand MD - 05/09/2024 EXAMINATION: XR ABDOMEN MULTIPLE PORTABLE CLINICAL INDICATION: Constipation. COMPARISON: XR Abdomen 05/02/2024 TECHNIQUE: 3 views of the abdomen. FINDINGS: Enteric catheter tip in distal duodenum near the level of ligament of Treitz. No abnormally dilated bowel loop. Nonobstructive bowel pattern. Small volume of scattered formed stool. IMPRESSION: 1. Enteric catheter tip in distal duodenum near the level of ligament of Treitz. 2. Nonobstructive bowel pattern. Small volume of scattered formed stool. Dieudonne Bianchi MD IMG DIAGNOSTIC IM AGING ORDERABLES * (ABNORMAL) Comprehensive Metabolic Panel (Early AM) (05/05/2024 6:52 AM EST) Only the most recent of4 resultswithin the time period is included. Glucose 113(H) 65 - 99 mg/dL 05/05/2024 8:29 AM [facility] Comment:Fasting: <100 mg/dL, Non-Fasting: <200 mg/dL (ADA 2005) Blood Urea Nitrogen (BUN) 14 8 - 21 mg/dL 05/05/2024 8:29 AM [facility] Creatinine 1.1 0.4 - 1.1 mg/dL 05/05/2024 8:29 AM [facility] eGFR 72 >59 05/05/2024 8:29 AM [facility] Comment:CKD-EPI (2021) in mL /min/1.73 sq meters. Sodium 139 136 - 145 mmol/L 05/05/2024 8:29 AM [facility] Potassium 4.1 3.4 - 5.3 mmol/L 05/05/2024 8:29 AM [facility] Chloride 104 98 - 107 mmol/L 05/05/2024 8:29 AM [facility] CO2 27 22 - 33 mmol/L 05/05/2024 8:29 AM [facility] Calcium 9.8 8.7 - 10.5 mg/dL 05/05/2024 8:29 AM [facility] Alkaline Phosphatase 31(L) 32 - 122 U/L 05/05/2024 8:29 AM [facility] Aspartate Aminotrans (AST) 17 10 - 50 U/L 05/05/2024 8:29 AM [facility] Alanine Aminotrans (ALT) 10 10 - 50 U/L 05/05/2024 8:29 AM [facility] Bilirubin, Total 0.3 0.2 - 1.0 mg/dL 05/05/2024 8:29 AM [facility] Protein, Total 6.1(L) 6.3 - 8.3 g/dL 05/05/2024 8:29 AM [facility] Albumin 3.7 3.5 - 5.0 g/dL 05/05/2024 8:29 AM [facility] BUN/Creatinine Ratio 13 10.0 - 25.0 Ratio 05/05/2024 8:29 AM [facility] Globulin 2.4 1.5 - 3.9 g/dL 05/05/2024 8:29 AM [facility] Albumin/Globulin Ratio 1.5 1.0 - 3.0 Ratio 05/05/2024 8:29 AM [facility] Anion Gap 8 7 - 17 05/05/2024 8:29 AM [facility] Blood (Plasma/Serum) 05/05/2024 6:52 AM EST 05/05/2024 7:47 AM EST Clarita Yonathan TORO [place] [address], [place] [address] * Creatine Kinase MB Fraction (05/04/2024 7:10 PM EST) CKMB 1.8 0 - 6.4 ng/mL 05/04/2024 9:56 PM EST [facility] Relative Index 1.2 0 - 3.4 % 05/04/2024 9:56 PM EST [facility] 05/04/2024 7:10 PM EST 05/04/2024 8:43 PM EST Comment:Plasma/Serum~Blood Clarita Mcmanus MD LAB BLOOD ORDERABLES Performing Organization Address City/[facility]/[place] [address], [place] [address] * Creatine Kinase, Reflex to CKMB (05/04/2024 7:10 PM EST) Creatine Kinase (CK) 151 24 - 173 U/L 05/04/2024 9:42 PM EST [facility] Plasma/Serum 05/04/2024 7:10 PM EST 05/04/2024 8:43 PM EST Comment:Plasma/Serum~Blood Clarita Mcmanus MD LAB BLOOD ORDERABLES Performing Organization Address City/[facility]/[place] [address], [place] [address] * XR Abdomen 1 view (05/02/2024 11:06 PM EST) Anatomical Region Laterality Modality Abdomen Computed Radiogr aphy 05/02/2024 10:2 4 PM EST Impressions 05/03/2024 12:48 AM EST The distal tip of the Dobbhoff tube overlies the distal duodenum in close approximation to the ligament of Treitz. Interpreted by: ??Roseann Olea DO Botany Technician I personally reviewed the images and the resident's preliminary report and AGREE with the report as it is now presented (RADPAL1). Narrative 05/03/2024 12:48 AM EST EXAMINATION: XR ABDOMEN KUB CLINICAL INDICATION: NG tube evaluation COMPARISON: Abdominal radiograph from 03/22/2024. TECHNIQUE: AP view of the abdomen. FINDINGS: The Dobbhoff tube courses below the diaphragm with the distal tip overlying the distal duodenum. Nonobstructive bowel gas pattern. No abnormal calcifications. No acute osseous abnormalities. The visualized lung bases are clear. Procedure Note Jersey Lucas MD - 05/03/2024 EXAMINATION: XR ABDOMEN KUB CLINICAL INDICATION: NG tube evaluation COMPARISON: Abdominal radiograph from 03/22/2024. TECHNIQUE: AP view of the abdomen. FINDINGS: The Dobbhoff tube courses below the diaphragm with the distal tip overlying the distal duodenum. Nonobstructive bowel gas pattern. No abnormal calcifications. No acute osseous abnormalities. The visualized lung bases are clear. IMPRESSION: The distal tip of the Dobbhoff tube overlies the distal duodenum in close approximation to the ligament of Treitz. Interpreted by: Roseann Olea DO Botany Technician I personally reviewed the images and the resident's preliminary report and AGREE with the report as it is now presented (RADPAL1). Katt Tobin PA-C [facility] DIAGNOSTIC SKYE GING ORDERABLES * POCT , Urine (05/02/2024 10:20 PM EST) Preg Test, Ur Negative Lot Number [id number] [place] Urine Macario Stark PA-C POINT OF CARE TEST O RDERABLES * (ABNORMAL) Urinalysis with Reflex to Microscopic and Culture (05/02/2024 10:13 PM EST) Color Yellow 05/02/2024 10:55 PM [facility] Clarity Clear 05/02/2024 10:55 PM [facility] Specific Willow 1.019 1.003 - 1.030 05/02/2024 10:55 PM [facility] pH 5.0 5.0 - 8.0 05/02/2024 10:55 PM [facility] Leukocyte Esterase Negative Negative 05/02/2024 10:55 PM [facility] Nitrite Negative Negative 05/02/2024 10:55 PM [facility] Protein Small (30 mg/dL)(A) Negative 05/02/2024 10:55 PM [facility] Glucose 0 0 - 99 mg/dL 05/02/2024 10:55 PM [facility] Ketones Small(A) Negative 05/02/2024 10:55 PM [facility] Blood Negative Negative 05/02/2024 10:55 PM [facility] Bilirubin Negative Negative 05/02/2024 10:55 PM [facility] WBC 1 0 - 4 per hpf 05/02/2024 10:55 PM [facility] RBC 1 0 - 4 per hpf 05/02/2024 10:55 PM [facility] Squamous Epithelial Cells 2 PER HPF 05/02/2024 10:55 PM [facility] X-Specimen 16 Voided urine specimen / Unknown 05/02/2024 10:13 PM EST 05/02/2024 10:33 PM EST Macario Stark PA-C URINE ORDERABLES Performing Organization Address City/State/[facility] [place] [address], [place] [address] from Last 3 Months Advance Directives * Full Code (Latest Code Status on File) Date Activated Date Inactivated Comments 05/23/2024 10:23 PM 07/03/2024 10:02 AM Need to dis cuss w/ psych * DNR Date Activated Date Inactivated Comments 05/23/2024 4:23 PM 05/23/2024 10:23 PM Question Answer Comments Decision thoroughly discussed with: Patient * Full Code Date Activated Date Inactivated Comments 05/22/2024 9:59 PM 05/23/2024 4:23 PM * Full Code Date Activated Date Inactivated Comments 05/03/2024 2:04 AM 05/22/2024 5:38 PM * Full Code Date Activated Date Inactivated Comments 03/29/2024 3:32 AM 05/02/2024 3:04 PM Question Answer Comments Decision Thoroughly Discussed with: Patient Healthcare Agents on File Name Relationship Healthcare Agent Relationshi p Communication Alecia Mendez Mother 4. Next of Kin ( Spouse, Adult Child, Parent, Adult Sibling, Grandparent) Himanshu Mendez Father 4. Next of Kin ( Spouse, Adult Child, Parent, Adult Sibling, Grandparent) Care Teams Quality Control Lead Relationship Specialty Start Date End Date Luci Parra APRN [address] [place] [id number] PCP - General 03/28/24 Austin Goff MD [address] [place] [id number] Primary Digital Photographic Printer Cardiovascular Disease 03/27/24 Anthony Maldonado PA-C [address] [place] [phone] Advanced Practitioner Cardiac Electrophysiology 06/08/24
--- OUTSIDE RECORDS SUMMARY | 2024-07-23 19:26 | XMS_ITS | Continuity of Care Document ---
Author Organization [facility]. 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 Name Role Phone Unavailable Unavailable Unavailable Unavailable Unavailable Unavailable Unavailable Unavailable Unavailable Unavailable Unavailable Unavailable Problems Z13.6(Z13.6) Onset:15-Mar-2024 Comments:Onset Date: 20240127 Hypophosphatemia Onset:26-Jan-2024 Vashti SOLO Allergies and Adverse Reactions iron(Allergy) Onset: 26-Jan-2024 Reaction:JOINT SWELLING amoxicillin(Allergy) Onset: 26-Jan-2024 Reaction:HIVES oxcarbazepine(Allergy) Onset: 26-Jan-2024 Reaction:HIVES Medications 250 ML glucose 50 MG/ML Injection;Provider Administration Instructions:INFUSE OVER 4-6HRS Vashti SOLO Start:5-Qvb-9990Smy:26-Jan-2024 Comments:Provider Administration Instructions:INFUSE OVER 4-6HRS 2 ML prochlorperazine 5 MG/ML Injection;10 MILLIGRAM X1ED Quantity:1 Vashti SOLO Start:1-Aev-4468Jir:26-Jan-2024 Comments:[id number] 1 ML diphenhydrAMINE hydrochloride 50 MG/ML Injection;25 MILLIGRAM X1ED Quantity:1 Vashti SOLO Start:8-Gqq-6363Xzp:26-Jan-2024 Comments:[id number] 1000 ML sodium chloride 9 MG/ML Injection;[id number] Administration Instructions:BOLUS Vashti SOLO Start:9-Oee-0893Pqq:26-Jan-2024 Comments:[id number] Administration Instructions:BOLUS Social History Smoking Status Never smoked tobacco Recorded: 26-Jan-2024 Results PHOSPHORUS Ordered On:26-Jan-2024 22:37 PHOSPHORUS3.2mg/dL(Normal) Rang e:2.5mg/dL-4.9mg/dL CBC W/AUTO DIFFERENTIAL Ordered On:26-Jan-2024 17:56 BASOPHIL #0.0610*9/L(Normal) Ra nge:010*9/L-0.210*9/L BASOPHIL %0.7% DIFF TYPE AUTO V MANUALAUTOMATED DIFF EOSINOPHIL #0.1010*9/L(Normal) R marcin:0.0210*9/L-0.510*9/L EOSINOPHIL %1.2%(Normal) Range:0 %-5% AULDOUPXRP39.6%(High) Range:36.8 %-49.5% ZJKCVJWQNL93.8g/dL(High) Range:1 2g/dL-16.3g/dL IMMATURE GRANULOCYTE S #0.0210*9/L(Normal) Range:010*9/L-0.0610*9/L IMMATURE GRANULOCYTE S %0.2%(Normal) Range:0%-0.7% LYMPHOCYTE #3.0610*9/L(Normal) R marcin:0.8510*9/L-3.910*9/L LYMPHOCYTE %36.8% MEAN CORPUSCULAR HGB30.2pg(Normal) Range:27pg-33pg MEAN CORPUSCULAR HGB CONC33.9g/dL(Normal) Range:32g/dL-36g/dL MEAN CORPUSCULAR UYEPQU68.2fL(Normal) Range:80fL-100fL MONOCYTE #0.7410*9/L(Normal) Ran ge:0.210*9/L-0.9510*9/L MONOCYTE %8.9% MEAN PLATELET VOLUME8.8fL(Normal) Range:7.5fL-12.5fL NEUTROPHIL #4.3410*9/L(Normal) R marcin:1.4110*9/L-6.6910*9/L NEUTROPHIL %52.2% NRBC#0.0010*9/L(Normal) Range:01 0*9/L-010*9/L NRBC%0.0% PLATELET WAWZY66202*9/L(High) Ra nge:07319*9/L-68969*9/L RED BLOOD CELL5.5610*6/uL(High) Range:3.9610*6/uL-5.3110*6/ uL RED CELL DISTRIB WID TH CV11.6%(Normal) Range:11%-15% RED CELL DISTRIB WID TH SD37.7fL(Normal) Range:37.1fL-49.5fL WHITE BLOOD CELL8.3210*9/L(Normal) Range:3.810*9/L-10.810*9/L COMPREHENSIVE METABOLIC PANEL Ordered On:26-Jan-2024 18:34 ALBUMIN3.0g/dL(Low) Range:3.4g/ dL-5g/dL ALKALINE FSUPAGPPKNM20X/L(Low) R marcin:45U/L-117U/L ALT25U/L(Normal) Range:13U/L-56U /L AST23U/L(Normal) Range:15U/L-37U /L BILIRUBIN TOTAL0.3mg/dL(Normal) Range:0.2mg/dL-1mg/dL BLOOD UREA STRTYQDL42ai/dL(Normal) Range:7mg/dL-18mg/dL CALCIUM9.5mg/dL(Normal) Range:8. 5mg/dL-10.1mg/dL BWCHNFYN576lsve/L(High) Range:98 mmol/L-107mmol/L CARBON AKOVPJR05ftaq/L(Normal) R marcin:21mmol/L-32mmol/L CREATININE0.99mg/dL(Normal) Rang e:0.55mg/dL-1.02mg/dL ANION MCR4snpy/L(Normal) Range:3 mmol/L-15mmol/L eGFR CKD-EPI (2020)81mL/min(Low) Range:>or=90 mL/min Comments:A GFR of 60-89 (mL/min/1.73 m2) without kidney damage may benormal in some people - such as the elderly and infants. GLUCOSE VFMEYV462ag/dL(High) Ran ge:74mg/dL-106mg/dL POTASSIUM4.1mmol/L(Normal) Range :3.5mmol/L-5.1mmol/L NWUOID381ksat/L(Normal) Range:13 6mmol/L-145mmol/L TOTAL PROTEIN7.1g/dL(Normal) Ran ge:6.4g/dL-8.2g/dL PHOSPHORUS Ordered On:26-Jan-2024 18:34 PHOSPHORUS2.4mg/dL(Low) Range:2 .5mg/dL-4.9mg/dL HCG SERUM QUAL Ordered On:26-Jan-2024 18:34 HCG SERUM QUALNEGATIVE Range:NE GATIVE Comments:Patient samples may contain heterophilic antibodies thatcould react in immunoassays to give falsely elevated ordepressed results. A test result that is inconsistent withthe clinical picture and patient history should beinterpreted with caution. Vital Signs 26-Jan-2024 23:50 Pulse69 Comments:69 Respiratory Rate18 Comments:18 O2 SAT97% Comments:97 BP Cewgixvf911iu[Hg] Comments:12 3 BP Wipdposzd98pr[Hg] Comments:80 26-Jan-2024 23:00 Pulse66 Comments:66 Respiratory Rate18 Comments:18 O2 SAT94% Comments:94 BP Tpgpcpad436xj[Hg] Comments:11 2 BP Fvoaqkzbc10nq[Hg] Comments:76 26-Jan-2024 22:00 Pulse73 Comments:73 Respiratory Rate18 Comments:18 O2 SAT97% Comments:97 BP Jbzsduck164te[Hg] Comments:15 0 BP Oaasxoecp022jq[Hg] Comments:1 02 26-Jan-2024 21:00 Pulse63 Comments:63 Respiratory Rate18 Comments:18 O2 SAT97% Comments:97 BP Jhmszpxw797pf[Hg] Comments:12 9 BP Etrnwihsn72wd[Hg] Comments:91 26-Jan-2024 20:00 Pulse79 Comments:79 Respiratory Rate18 Comments:18 O2 SAT96% Comments:96 BP Qszpczbz538qa[Hg] Comments:12 1 BP Gngncbsep24gc[Hg] Comments:87 26-Jan-2024 19:00 Pulse82 Comments:82 Respiratory Rate18 Comments:18 O2 SAT98% Comments:98 BP Hhiblnds352cy[Hg] Comments:11 8 BP Pihrniacz49yd[Hg] Comments:85 26-Jan-2024 18:00 Pulse96 Comments:96 Respiratory Rate18 Comments:18 O2 SAT98% Comments:98 BP Wlttucnt432rx[Hg] Comments:14 1 BP Apwzsplqr87sz[Hg] Comments:68 26-Jan-2024 17:35 Wlflvlyxjkg30.7f Comments:98.7 Pulse99 Comments:99 Respiratory Rate18 Comments:18 O2 SAT95% Comments:95 BP Sciqdpum417ry[Hg] Comments:16 7 BP Qpbldnpvb696it[Hg] Comments:1 01 Height5.25[ft_us] Comments:5 Vomyaw36.727kg Comments:47.727 26-Jan-2024 17:35 BMI18.6kg/m2 Comments:18.6 Encounters Emergency Encounter Reason:EMS Encounter Diagnosis:COVID-19 virus infection,Other disorders of phosphorus metabolism 26-Jan-2024 17:72Nw2-Rel-2893 23:50 EDM EDDOC - Generic for MD (Attending) [facility] Discharge Disposition:Discharged to home or self care (routine discharge) ? ? ? Vashti SOLO-26-Jan-2024 [facility] ([facility] Main EDEMERGENCY PROVIDER REPORTREPORT#:[id number] REPORT STATUS: ESignDATE:01/26/24 TIME: 1801PATIENT: KESHA MENDEZ UNIT #: [id number]#: [id number] ROOM/BED: ERDOB: [birth year] AGE: 23 SEX: PCP PHYS: NO PRIMARY OR FAMILY PHYSICIANADM DATE: 01/26/24 INI AUTH: Kimmie Kingston PAED ADMIT LAST SIG: Priscilla Ovalle MDREP SERV REP SERV TM: 1736 * ALL edits or amendments must be made on the electronic/computer document *Kimmie Kingston 01/26/24 1801:HPI GREETGeneralInitial Greet Date/Time 01/26/24 1736Clinical NoteClinical NoteFirst Documented: Result Date Time Pulse Ox 95 01/25 1735 B/P 167/101 01/25 1735 B/P Mean 123 01/25 1735 O2 Delivery Room air 01/25 1735 Temp 37.1 01/25 173 Pulse 99 01/25 1735 Resp 18 01/25 1735Last Documented: Result Date Time Pulse Ox 97 01/25 2350 B/P 123/80 01/25 2350 B/P Mean 94 01/25 2350 O2 Delivery Room air 01/25 2350 Pulse 69 01/25 235 Resp 18 01/25 2350 Temp 37.1 01/25 1735CHIEF COMPLAINT: abnormal lab valuesHISTORY OF PRESENT ILLNESS: Patient is a 23-year-old female with a history ofanorexia, anxiety, depression, ADHD, PTSD, and anemia who presents with abnormallab values. She was referred from the [facility] due to lowphosphorus levels (2.5 yesterday, 1.8 today), increased hematocrit, low RDW,increased calcium, and decreased albumin. The patient reports an anaphylacticreaction to oral phosphorus, necessitating IV administration. She experienceddizziness this morning but denies current dizziness, headaches, chest pain,nausea, or vomiting. Patient did test positive for COVID about 1 week ago, butdenies any current respiratory symptoms. [facility].Allergies: Gluten, Amoxicillin, oral phosphorusPast Medical History: Anorexia, anxiety, depression, ADHD, PTSD, anemiaSurgical History: None mentioned.REVIEW OF SYSTEMS: Reviewed and negative, except as documented in HPI.PHYSICAL EXAM:General: Well nourished, thin, no acute distressHEENT: Atraumatic. Normal conjunctiva/sclera. Moist mucus membranesRespiratory: No respiratory distress or increased work of breathing, lungs clearto auscultation bilatCardiac: Normal rate, regular rhythm, no peripheral edemaGastrointestinal: Abdomen nondistendedSkin: Well perfused, warm and dry, no rash, atraumaticMusculoskeletal: Normal inspection of extremities, full range of motion of 4extremities.Neurologic: Alert, AAOx3, moves all 4 extremities equally, normal motor exam,strength 5/5, sensation equal and intact bilaterally, CN II- XII intact, normalcerebellar function, normal finger to nose and rapid alternating movements,normal gait, normal speechPsychiatric: Normal mood, normal affectReevaluation #1 - 19:00 -: Patient resting comfortably in bed. Agrees for planwith IV phosphorus replacement, requesting Compazine and Benadryl prior toadministration given history of anaphylactic reaction, which were ordered.Reevaluation #2 - 21:00: Patient resting comfortably in bed, states that [facility]. Phosphorus is below 3. Plan to repeatphosphorus at 22:00, continue repletion based on value. Patient agrees withplan.Reevaluation #3: - 22:30: Patient resting comfortably in bed, repeat phosphorus3.2, discussed with patient who is requesting to have more of the IV phosphorusas her facility will send her back for any value less than 3.Reevaluation #4: - 23:10 - Patient resting comfortably in bed, states she isready to go home. Discussed that facility recommended she take an Uber back tot facility, patient agrees with plan and is ready for discharge.PROCEDURES:EKG interpretation:Interpretation time: 17:44rate: 100rhythm : Sinusaxis : Normalintervals : Normalqrs duration : NormalT waves and ST segments : No ischemic changescomparison to prior : Not availableinterpretation : Normal sinus EKG without evidence of acute ischemia ordysrhythmiaThe EKG was interpreted by me Kimmie Kingston PA-C and my attending physican ENTIAL DIAGNOSIS includes, but is not limited to: hypophosphatemia,electrolyte abnormality, cardiac dysrhythmiaMedical Decision Making:Patient is a 23-year-old female with a history of anorexia, anxiety, depression,ADHD, PTSD, and anemia who presents with abnormal lab values. [facility] due to low phosphorus levels (2.5 yesterday, 1.8today). Pt has a h/o anaphylactic reaction to oral phosphorus and is requestingIV replacement.Vital signs and physical exam reassuring, EKG normal. Labs repeated, whichshowed mild hypophosphatemia (2.4), other electrolytes wnl. Discussed withpharmacy, IV phosphorus started. Repeat phosphorus wnl. Discussed return to EDprecautions. Pt discharged back to the [facility] via Uber perfacility request.Medical Decision Making / High Complexity of Problem- Number and complexity of problems addressed: 1 acute or chronic illness orinjury that poses a threat to life or bodily function.- History obtained from additional independent historian(s): report from EMS.- I have ordered: see below for labs/imaging tests that have been ordered andreviewed, see below for lab(s) that have been ordered and reviewed, EKG, pulseoximeter.- I have discussed management/test interpretation with: pharmacist.- Risk of Complications and/or Morbidity or Mortality of Patient Management:high, increased risk of morbidity/mortality due to chronic underlying conditions, there is a high risk of morbidity/ mortality associated with potentialdiagnoses.- Based on the seriousness of patient's presentation and comorbidities, thefollowing interventions were ordered and done: IV, IV fluids, medications.- Medications/prescriptions management: parenteral controlled substanceadministered, medications reviewed; recommend maintaining current prescriptionregimen.- Decision regarding limitation of imaging, limitation of diagnostic testing, orde-escalation of care: imaging was not thought to be indicated based on riskassessment.- Disposition of the patient/consideration of hospitalization: there is noindication for acute hospitalization at this time, patient will be discharged.Past Medical HistoryStated Complaint EMSAllergiesCoded Allergies:amoxicillin (HIVES 01/26/24)iron (From VENOFER) (JOINT SWELLING 01/26/24)oxcarbazepine (From TRILEPTAL) (HIVES 01/26/24)Smoking status for patients 13 years old or older: Never SmokerCOURSEDataDiagnosticsLaboratory Tests01/26/24 1745:[Embedded Image Not Available]Laboratory Tests: 01/25 01/25 2215 1745 Chemistry Sodium (136 - 145 mmol/L) 139 Potassium (3.5 - 5.1 mmol/L) 4.1 Chloride (98 - 107 mmol/L) 111 H Carbon Dioxide (21 - 32 mmol/L) 24 Anion Gap (3 - 15 mmol/L) 4 BUN (7 - 18 mg/dL) 10 Creatinine (0.55 - 1.02 mg/dL) 0.99 Est GFR (CKD-EPI) (>or=90 mL/min) 81 L Random Glucose (74 - 106 mg/dL) 110 H Calcium (8.5 - 10.1 mg/dL) 9.5 Phosphorus (2.5 - 4.9 mg/dL) 3.2 2.4 L Total Bilirubin (0.2 - 1.0 mg/dL) 0.3 AST (15 - 37 Units/L) 23 ALT (13 - 56 Units/L) 25 Alkaline Phosphatase (45 - 117 Units/L) 41 L Total Protein (6.4 - 8.2 g/dL) 7.1 Albumin (3.4 - 5.0 g/dL) 3.0 L HCG, Qual (NEGATIVE) NEGATIVE Hematology WBC (3.80 - 10.80 10 9/L) 8.32 RBC (3.96 - 5.31 10 6/mcL) 5.56 H Hgb (12.0 - 16.3 g/dL) 16.8 H Hct (36.8 - 49.5 %) 49.6 H MCV (80.0 - 100.0 fL) 89.2 MCH (27.0 - 33.0 pg) 30.2 MCHC (32.0 - 36.0 g/dL) 33.9 RDW Std Deviation (37.1 - 49.5 fL) 37.7 RDW Coeff of Tez (11.0 - 15.0 %) 11.6 Plt Count (140 - 400 10 9/L) 417 H MPV (7.5 - 12.5 fL) 8.8 Immature Gran % (Auto) (0.0 - 0.7 %) 0.2 Immature Gran # (Auto) (0.00 - 0.06 10 9/L) 0.02 Neutrophils % (%) 52.2 Lymphocytes % (%) 36.8 Monocytes % (%) 8.9 Eosinophils % (0.0 - 5.0 %) 1.2 Basophils % (%) 0.7 Nucleated RBC % (%) 0.0 Neutrophils # (1.41 - 6.69 10 9/L) 4.34 Lymphocytes # (0.85 - 3.90 10 9/L) 3.06 Monocytes # (0.20 - 0.95 10 9/L) 0.74 Eosinophils # (0.02 - 0.50 10 9/L) 0.10 Basophils # (0.00 - 0.20 10 9/L) 0.06 Nucleated RBCs # (0.00 - 0.00 10 9/L) 0.00 Differential Comment AUTOMATED DIFFMed DataMed DataMedication(s) Ordered:Antihistamine Drugs Sig/Marino Start time Last Medication Dose Route Stop Time Status Admin Diphenhydramine HCl 25 MG X1ED ONE 01/25 1915 DC 01/25 IV 01/26 1916 193Electrolytic, Caloric, And Franck Sig/Marino Start time Last Medication Dose Route Stop Time Status Admin Sodium Phosphate 15 MM 1930 01/25 193 DC 01/25 Dextrose/Water 250 ML IV 01/25 2329 193 Sodium Chloride 1,000 ML X1ED ONE 01/25 1745 DC 01/25 IV 01/25 1844 1754Gastrointestinal Drugs Sig/Marino Start time Last Medication Dose Route Stop Time Status Admin Prochlorperazine 10 MG X1ED ONE 01/25 1915 DC 01/25 Edisylate IV 01/25 191 1936Other Sig/Marino Start time Last Medication Dose Route Stop Time Status Admin Phosphorus 1 ALERT DAILY 01/25 1829 CAN - 07/25 0901Patient Discharge DepartureVital Signs/ConditionVital SignsFirst Documented: Result Date Time Pulse Ox 95 01/25 1735 B/P 167/101 01/25 1735 B/P Mean 123 01/25 1735 O2 Delivery Room air 01/25 1735 Temp 37.1 01/25 1735 Pulse 99 01/25 1735 Resp 18 01/25 1735Last Documented: Result Date Time Pulse Ox 97 01/25 2350 B/P 123/80 01/25 2350 B/P Mean 94 01/25 2350 O2 Delivery Room air 01/25 2350 Pulse 69 / 2350 Resp 18 01/25 2350 Temp 37.1 01/25 1735All vital signs available at the time of this entry have been reviewed.Condition StableClinical ImpressionClinical ImpressionPrimary Impression: HypophosphatemiaDisposition DecisionDischarge )( Discharged to Home Yes )( Time 2311 )( Date 01/26/24Discharge/Care PlanCounseled Regarding Diagnosis, Lab results, Need for follow-up, When to returnto EDPatient Instructions HypophosphatemiaAdditional InstructionsThank you for allowing me to participate in your care. As discussed, your labwork showed low levels, which we have replaced here. Your repeat labs showphosphorus within a normal range. We feel you can be discharged form theemergency department to the [facility].If your symptoms worsen or change, please return to the emergency department.Please read the attached instructions, as they highlight more specific postdischarge care. Please take all prescribed medications as directed.Kimmie SOLO-CDeparture Forms*[facility] ADULTFLPRISCILLA DERAS 01/27/24 1513:Patient Discharge DepartureDischarge/Care PlanReferralsProvider Referral: NO PRIMARY OR FAMILY PHYSICIANSupervising Physician Note MidLv Saw Pt AloneI have reviewed the PA/DOCUMENTATION IMPROVEMENT SPECIALIST's note and plan of care. I was available forconsultation as needed at all times during the patient's visit in the emergencydepartment. I agree with the clinical impression, plan and disposition.MACKENZIE Tq-dpkmrfaaesYs-ntxckovsi with MACKENZIE: I have discussed the evaluation and management of thispatient with the MACKENZIE and agree with their assessment and disposition plan. Vickyo evaluated the patient personally and my assessment is as followsHistory and Physical.Chief Complaint: Low phosphorus.Constitutional: vital signs reviewed.Medical Decision Making and Differential Diagnosis: I performed a substantiveportion of the visit including all aspects of the medical decision making, Idiscussed case with MACKENZIE.Differential Diagnosis: Electrolyte abnormality, low phosphorus, dehydrationMedical Decision Makin-year-old female with history of anorexia anxietydepression hypophosphatemia [facility] lowPhos levels of 1.8 today. Reportedly has anaphylactic reaction to oralphosphorus. Patient other than slightly weak feels at baseline on my examanswer questions properly moving extremities no focal deficits. No stiffness.EKG without abnormalities. Phosphorus just mildly low here 2.4. Was repleted.Patient deemed safe for discharge home at 1310 at 1514RPT #: [id number] OF REPORT Plan of Treatment Thank you for allowing me to participate in your care. As discussed, your lab work showed low levels, which we have replaced here. Your repeat labs show phosphorus within a normal range. We feel you can be discharged form the emergency department to the [facility]. If your symptoms worsen or change, please return to the emergency department. Please read the attached instructions, as they highlight more specific post discharge care. Please take all prescribed medications as directed. Kimmie Kingston PA-C Future Tests Future scheduled test information is unavailable Pending Tests Pending diagnostic test information is unavailable Future Visits Future appointment information is unavailable Referrals to Other Providers Reason for Referral Referral Start Date Provider Provider Contact Information Provider Address NO PRIMARY OR FAMILY PHYSICIAN Future Procedures Future procedure information is unavailable Future Medications Future medication information is unavailable Patient Instructions Instruction Admit Date Hypophosphatemia January 26, 2024 6:31pm Assessments Diagnosis Onset Date Resolution Status Admit Date Hypophosphatemia Active Janemb2023 6:31pm
== END 2024-07-23 18:03 | disposition home or self-care (01) ==
LOC: HO.LNP 18:02
PROVIDERS: Visit Provider Internal Medicine Gastroenterology
DX: F50.89 Other specified eating disorder (principal); D89.49 Other mast cell activation disorder; E86.0 Dehydration
CPT/HCPCS: 80053; 83735; 84100; 84478; 85025

== ENCOUNTER 2024-08-06 13:50 | Outpatient (REF) | payer OTHER, SELFPAY ==
[2024-08-06 13:59] LABS: MANUAL DIFF FLAG NO
[2024-08-06 14:07] LABS: Basophils Percent Auto 0.6 % (0-2); Eosinophils Absolute Auto 0.3 X10*3/uL (0.0-0.4); Eosinophils Percent Auto 4.7 % (0-4); Hematocrit 39.2 % (37.0-47.0); Imm Gran Abs Auto 0.01 X10*3/uL (0.00-0.03); Imm Gran Pct Auto 0.2 % (0.0-0.4); Lymphocytes Absolute Auto 2.9 X10*3/uL (1.2-4.9); Lymphocytes Percent Auto 46.8 % (20-40); Mean Corpuscular HGB Conc 33.2 g/dl (31.0-35.0); Mean Corpuscular Hemoglobin 29.1 pg (27.0-33.0); Mean Corpuscular Volume 87.7 fL (80.0-98.0); Mean Platelet Volume 10.9 fL (9.4-12.3); Monocytes Absolute Auto 0.6 X10*3/uL (0.1-1.2); Monocytes Percent Auto 9.5 % (2-11); Neutrophils Absolute Auto 2.4 x10*3/uL (2.0-8.3); Neutrophils Percent Auto 38.2 % (45-73); Platelet Count 310 X10*3/uL (160-400); Red Blood Count 4.47 X10*6/uL (4.20-5.50); Red Cell Distribution Width 19.1 % (11.0-16.0); White Blood Count 6.2 X10*3/uL (4.8-10.8)
[2024-08-06 14:32] LABS: Alanine Aminotransferase 13 U/L (0-31); Albumin Level 3.5 g/dL (3.5-5.0); Alkaline Phosphatase 36 U/L (39-117); Anion Gap 10 (12-20); Aspartate Amino Transferase 18 U/L (5-31); Bilirubin Total 0.5 mg/dL (0.0-1.0); Blood Urea Nitrogen 13 mg/dL (9-16); Calcium 9.6 mg/dL (8.4-10.2); Carbon Dioxide 23 mmol/L (22-29); Chloride 110 mmol/L (96-108); Estimated Glomerular Filt Rate > 60; Glucose Random 88 mg/dL (60-115); Magnesium 1.9 mg/dL (1.6-2.6); Phosphorus 2.8 mg/dL (2.7-4.5); Potassium 4.3 mmol/L (3.3-5.1); Sodium 139 mmol/L (135-145); Total Protein 6.2 g/dL (6.5-8.0); Triglycerides 100 mg/dL (<150)
== END 2024-08-06 13:51 | disposition home or self-care (01) ==
LOC: HO.LNP 13:50
PROVIDERS: Visit Provider Internal Medicine Gastroenterology
DX: F50.89 Other specified eating disorder (principal); D89.49 Other mast cell activation disorder; R11.2 Nausea with vomiting, unspecified; E86.0 Dehydration
CPT/HCPCS: 80053; 83735; 84100; 84478; 85025